=== PATIENT | male | born 1960 | race Caucasian/White ===

== ENCOUNTER 2023-09-16 10:29 | Outpatient (RCR) | payer MEDICARE, SELFPAY ==
[2023-09-16] MEDS: FLEXBUMIN 50 IV (11:24)
[2023-09-16 11:26] VITALS: BP 127/75
[2023-09-16] MEDS: FLEXBUMIN 100 IV (12:10)
[2023-09-16 12:13] VITALS: BP 119/72
[2023-09-16 12:45] VITALS: BP 117/54
== END 2023-10-12 23:59 | disposition home or self-care (01) ==
LOC: OID 10:29
PROVIDERS: ATTENDING PHYSICIAN Internal Medicine Hematology & Oncology
DX: K70.31 Alcoholic cirrhosis of liver with ascites (principal); R18.8 Other ascites
CPT/HCPCS: 49083; 87015; 87070; 87205; 89051; 96365; 96366; P9047

== ENCOUNTER 2023-10-11 18:56 | Inpatient (IN) | payer MEDICARE, SELFPAY ==
[2023-10-11] VITALS (9 sets, daily range): BP systolic 93–129; BP diastolic 50–79; BMI 26.5; BMI 25.7
[2023-10-11 15:08] LABS: % Basophils 0.2 % (0-2); % Eosinophils 0.1 % (0-6); % Immature Granulocytes 0.7 % (0-0.5); % Lymphocytes 1.4 % (20.5-51.1); % Monocytes 5.8 % (1.7-9.3); % Neutrophils 91.8 % (42.2-75.2); Absolute Immature Granulocytes 0.1 10^3/uL (0-0.05); Absolute Lymphocytes 0.3 10^3/uL (1.2-3.4); Absolute Monocytes 1.1 10^3/uL (0.1-0.6); Absolute Neutrophils 17.6 10^3/uL (1.4-6.5); Hematocrit 37.6 % (39.0-52.0); Hemoglobin 13.8 g/dL (13.0-18.0); Mean Corp Hgb Conc. 36.7 g/dL (33.0-37.0); Mean Corpuscular Hgb 32.7 pg (27.0-31.0); Mean Corpuscular Volume 89.1 fL (80.0-94.0); Mean Platelet Volume 9.8 fL (7.4-10.4); Nucleated Red Blood Cells % 0 % (-); Platelet Count 133 10^3/uL (130-400); Red Blood Cell Count 4.22 10^6/uL (4.70-6.10); Red Cell Dist. Width 15.6 % (11.5-14.5); White Blood Cell Count 19.2 10^3/uL (4.8-10.8)
[2023-10-11 15:21] LABS: Ammonia 27 umol/L (9-30)
[2023-10-11 15:26] LABS: ALT (SGPT) 53 U/L (0-50); AST (SGOT) 75 U/L (17-59); Albumin 2.9 g/dl (3.5-5.0); Alkaline Phosphatase 129 U/L (38-126); Blood Urea Nitrogen 19 mg/dl (9-20); Calcium 8.5 mg/dl (8.4-10.2); Carbon Dioxide 20 mmol/L (22-30); Chloride 93 mmol/L (98-107); Glucose 117 mg/dl (70-99); Potassium 5.2 mmol/L (3.5-5.1); Sodium 119 mmol/L (135-145); Total Bilirubin 7.1 mg/dl (0.2-1.3); Total Protein 7.5 g/dl (6.3-8.2); eGFR > 60.00
--- NOTE | 2023-10-11 17:31 | ED.GENMED ---
History of Present Illness
General
Chief Complaint: Weakness
Source: patient and spouse
Exam Limitations: none
Time Seen by Provider: 10/11/23 15:57
Nursing documentation reviewed up to this point in time: agreed with
Travel History
Have you had any contact with someone who has COVID-19?: No
Do you have any symptoms of coronavirus? Fever > 100 degrees, chills, cough, shortness of breath, sore throat, loss of taste or smell, muscle aches, or headache?: No
History of Present Illness
History of Present Illness:
63-year-old male with Alyssa history of liver cancer with previous radiation treatment no ongoing chemo at this time. Does have frequent ascites with drainage has cirrhosis. He is presenting to the emergency department today with concerns of
slight confusion and altered mental status since last night. Has had decreased over the past few days. Denies significant discomfort at this time no chest pain or shortness of breath no nausea vomiting or diarrhea.
Past History
Past History
ED Past Medical History: Cancer (Hepatocellular carcinoma) and Other (Gallstones)
ED Past Surgical History: None
Social History
Tobacco: Non-smoker
Alcohol: Occasional
Drug: None
Personal: Single (common law marrage)
Living: with family
Review of Systems
Review of Systems
Allergies reviewed?: Yes
All Other Systems: ROS reviewed and negative except as documented in HPI and ROS
Phy Exam
Physical Exam
Physical Exam:
GENERAL: Alert , in no apparent distress
EYE: pupils equal and reactive
NECK: Supple, no significant adenopathy.
ENT: o/p clr, mmm.
CARDIAC: Regular rate and rhythm .
LUNGS: Clear breath sounds bilaterally, no acute respiratory distress, no wheezes/rales/rhonchi
ABDOMEN: Soft, without focal tenderness, no r/g, no cvat
NEUROLOGICAL: Alert and oriented, no focal neuro deficits
SKIN: Warm and dry, skin intact.
MUSCULOSKELETAL: No edema, well perfused.
PSYCH: Normal and appropriate interaction.
Course
Orders/Labs/Results
Orders:
Orders
10/11/23 14:45
CT Head W/o Iv Contrast Urgent
Comment:
Reason For Exam: weakness and confusion
10/11/23 14:55
Ammonia Urgent
CMP [Comprehensive Metabolic Panel] Urgent
Complete Blood Count/With Diff Urgent
TSH Reflex To Free T4 Urgent
Comment: ADD ON
10/11/23 16:34
Urine Osmolality Random [Osmolality, Random Urine] Urgent
Urine Sodium Urgent
10/11/23 16:35
Add On- LAB Urgent
Tests Added?: tsh free t4
10/11/23 16:36
EKG [Electrocardiogram (*1)] Urgent
Reason for Study: QTc Monitoring
EKG- Treatment ONCE
Urinalysis Reflex To Culture Urgent
10/11/23 17:00
3% Sodium Chloride 250 ml [Sodium Chloride 3%] 50 ml IV ONCE
10/11/23 17:17
3% Sodium Chloride 500 ml [Sodium Chloride 3%] 100 ml Empty Viaflex Container 100 ml [Viaflex Empty Container] 0 ml IV NOW
Abnormal Lab Results
10/11/23
14:55
WBC 19.2 H 10^3/uL
(4.8-10.8)
RBC 4.22 L 10^6/uL
(4.70-6.10)
Hct 37.6 L %
(39.0-52.0)
MCH 32.7 H pg
(27.0-31.0)
RDW 15.6 H %
(11.5-14.5)
Abs Immat Gran (auto) 0.1 H 10^3/uL
(0-0.05)
Absolute Neuts (auto) 17.6 H 10^3/uL
(1.4-6.5)
Absolute Lymphs (auto) 0.3 L 10^3/uL
(1.2-3.4)
Absolute Monos (auto) 1.1 H 10^3/uL
(0.1-0.6)
Immature Gran % 0.7 H %
(0-0.5)
Neutrophils % 91.8 H %
(42.2-75.2)
Lymphocytes % 1.4 L %
(20.5-51.1)
Sodium 119 L* mmol/L
(135-145)
Potassium 5.2 H mmol/L
(3.5-5.1)
Chloride 93 L mmol/L
(98-107)
Carbon Dioxide 20 L mmol/L
(22-30)
Glucose 117 H mg/dl
(70-99)
Total Bilirubin 7.1 H mg/dl
(0.2-1.3)
AST 75 H U/L
(17-59)
ALT 53 H U/L
(0-50)
Alkaline Phosphatase 129 H U/L
(38-126)
Albumin 2.9 L g/dl
(3.5-5.0)
10/11/23 14:55
10/11/23 14:55
Vital Signs
Initial and Last Documented VS:
Initial Vital Signs
Temp Pulse Resp BP Pulse Ox
97.9 F 117 20 129/79 99
10/11/23 14:39 10/11/23 14:39 10/11/23 14:39 10/11/23 14:39 10/11/23 14:39
Last Documented Vital Signs
Temp Pulse Resp BP Pulse Ox
97.9 F 116 23 114/62 98
10/11/23 14:39 10/11/23 17:00 10/11/23 17:00 10/11/23 17:00 10/11/23 16:19
MDM/Problems Addressed
MDM/Problems Addressed:
63-year-old male presenting to the emergency department today with concerns of feeling fatigue and generalized weakness since last night. Has not been eating or drinking much over the past few days does have a history of liver cancer. Upon arrival
here patient was tachycardic this did improve while at rest during my examination was close to 100 even. Labs obtained that showed significant hyponatremia of 119. White blood cell count of 19.2 otherwise elevated liver function test but this is
chronically elevated as well as the bilirubin level secondary to his cancer diagnosis. Patient was given initial dose of hypertonic saline due to his altered mental status but no signs of seizure. Plan for admission for treatment and monitoring.
*Critical Care Note
Total Time (30-74mins, 75-104mins- exclusive of procedures): Not Applicable
ED Attending Note
-
Portions of this chart may have been created with voice recognition software.� Occasional wrong word or��sound alike� substitutions may have occurred due to the inherent limitations of voice recognition software.
Discharge Plan
Departure
Patient Disposition: Admit
Date of Disposition: 10/11/23
Time of Disposition: 17:40
Admit to: Med/Surg
Admit to doctor: Wu
Presentation/result/management discussed w/ accepting MD/DO: Hospitalist
Patient with high blood pressure during this ER visit?: No
Condition: Good
Covid-19: Not Applicable
Discharge Problem:
Acute hyponatremia, AMS (altered mental status)
Prescriptions:
No Action
furosemide 20 MG tablet
20 mg PO DAILY
spironolactone 50 mg tablet
50 mg PO DAILY
sennosides [Senokot] 8.6 mg Tablet
17.2 mg PO DAILY
ondansetron 4 mg Tablet,Disintegrating
4 mg PO Q6H PRN (Reason: nausea)
oxycodone 5 mg Tablet
5 mg PO Q4H PRN (Reason: pain)
docusate sodium 100 mg Capsule
100 mg PO DAILY
Referrals:
Ahmet Mckenna, DO [Family Provider] -
Interventions
Interventions:
*Risk Screen - Suicide Last Done: 10/11/23 16:19
*General Assessment Last Done: 10/11/23 16:19
*Neglect/Abuse Screening Last Done: 10/11/23 16:19
ED- Fall Risk Assessment Last Done: 10/11/23 16:19
*ED COVID-19 Vaccine History Last Done: 10/11/23 14:39
ED- Cardiac Assessment Last Done: 10/11/23 16:19
ED- Neurological Assessment Last Done: 10/11/23 16:19
ED- Pulmonary Assessment Last Done: 10/11/23 16:19
--- NOTE | 2023-10-11 18:05 | HPS.HSE ---
Family Physician
<JORGE Grant - Last Filed: 10/11/23 18:30>
-
Family Physician: Ahmet Mckenna
Chief Complaint
<JORGE Grant - Last Filed: 10/11/23 18:30>
-
Confusion since last night
History of Present Illness
63-year-old male complaining of slight confusion with altered mental status over the last few days. He is also been experiencing some abdominal pain and was due for MRI tomorrow. He has history of hepatocellular carcinoma with previous radiation
treatment no current chemo at this time. He has had history of frequent paracentesis last on 10/07 2023 draining 4.4 L prior 5 L on 09/22/23. He gets weekly paracentesis. He follows with Dr. Mckenna from [facility]. The patient reports he
stopped his diuretics a few weeks ago due to abdominal pain. He has past medical history of hepatocellular carcinoma with previous radiation Y90 at [facility], weekly paracentesis, prior phlebotomy last was June due to hemochromatosis diagnosed 9
years ago, former alcohol abuse stopped 9 years ago, chronic pain
Medical History
<JORGE Grant - Last Filed: 10/11/23 18:30>
Past Medical History
Past Medical History: Reports Other (hepatocellular carcinoma with previous radiation Y90 at [facility], weekly paracentesis, prior phlebotomy last June due to hemochromatosis diagnosed 9 years ago, former alcohol abuse stopped 9 years ago,
chronic pain)
Past Surgical History: Reports Other (Ablation liver cyst 5 years ago)
Social History
Tobacco: Non-smoker
Alcohol: Former (Drink 4 days a week multiple beer stopped 9 years ago)
Personal:
Living: With Family ()
Employment: Disabled
Family History
Family History: Other (Mother history hemochromatosis)
Allergies / Home Medications
Allergies reflects when Allergies were last updated in [facility].
Home Medications with original date entered in [facility]
Allergy/Medication List:
Allergies
Allergy/AdvReac Type Severity Reaction Status Date / Time
No Known Allergies Allergy Verified 10/11/23 14:45
Home Medications
furosemide 20 mg tablet 20 mg PO DAILY Fluid Retention/Swelling 11/05/16
spironolactone 50 mg tablet 50 mg PO DAILY Blood Pressure 09/23/23
ondansetron 4 mg disintegrating tablet 4 mg PO Q6H PRN nausea 09/29/23
oxycodone 5 mg tablet 5 mg PO Q4H PRN pain 09/29/23
sennosides 8.6 mg tablet (Senokot) 17.2 mg PO DAILY 09/29/23
docusate sodium 100 mg capsule 100 mg PO DAILY 09/30/23
Review of Systems
<JORGE Grant - Last Filed: 10/11/23 18:30>
-
History Source: Patient and Family ( at bedside)
Constitutional: Reports Fatigue and Other (Confusion, lethargy); Denies Fever or Chills
EENT: Denies Sore Throat or Runny Nose
Respiratory: Denies Cough or Trouble Breathing
Cardiac: Denies Chest Pain, Palpitations or Syncope
Abdomen/GI: Reports Abdominal Pain; Denies Nausea, Vomiting or Diarrhea
: Denies Dysuria, Frequency, Flank Pain, Incontinence or Difficulty Voiding
Musculoskeletal: Denies Joint Pain, Joint Swelling or Edema
Skin: Denies Itching or Rash
Neurological: Denies Dizzy or Headache
Endocrine: Reports No Symptoms
Hematologic/Lymphatic: Reports No Symptoms
Psych: Reports Calm
Physical Exam
<JORGE Grant - Last Filed: 10/11/23 18:30>
Vital Signs
Vital Signs
Temp Pulse Resp BP Pulse Ox
97.9 F 116 23 114/62 98
10/11/23 14:39 10/11/23 17:00 10/11/23 17:00 10/11/23 17:00 10/11/23 16:19
Physical Exam
General: No Pain or Fever
HEENT: NormoCephalic, Anicteric, Moist mucous membranes, [place] Conjunctivae and No Ptosis
Respiratory: Clear; No Wheezes, Rales or Rhonchi
Cardiac: S1/S2, Regular Rhythm and Murmur (3/6 systolic); No Rub, Gallop or Peripheral Edema
Breast: Deferred by me
GI: Soft, Normal Bowel Sounds, Tender (Generalized), Distended and No Hepatosplenomegaly
Rectal: Deferred by Provider
Genito-urinary: Deferred by me
Musculoskeletal: No Clubbing, No Cyanosis and No Edema
Skin: Warm and Dry; No Rash
Neuro: AO x 3, No Motor Deficits, Nonfocal/grossly intact, Cranial Nerves Intact and No Sensory Deficits; No Slurred Speech, Facial Droop or Tremors
Psych: Calm
Laboratory Results
<JORGE Grant - Last Filed: 10/11/23 18:30>
-
10/11/23 14:55
10/11/23 14:55
Laboratory Results
Total Bilirubin 7.1 mg/dl (0.2-1.3) H 10/11/23 14:55
AST 75 U/L (17-59) H 10/11/23 14:55
ALT 53 U/L (0-50) H 10/11/23 14:55
Alkaline Phosphatase 129 U/L (38-126) H 10/11/23 14:55
Impression/Plan
<JORGE Grant - Last Filed: 10/11/23 18:30>
-
Impression/plan:
Admit to IMU
Increased confusion likely secondary to symptomatic hyponatremia
NA 119
-3% NA infusion
-Consult Nephro
-Urine NA, urine Osmo, serum Osmo, TSH with free T4
-Resume patient's Lasix he stopped 3 weeks ago and spironolactone
CT head: No acute intracranial abnormality
EKG: Sinus tach 111 BPM, QTc 427 MS anteroseptal infarct no previous EKGs
# Acute leukocytosis unclear etiology possible SBO given history of ascites
WBC 19.2 > 18.3 on 09/24/2023 with left shift
-Blood cultures x 2
-IV Rocephin
-Check abdominal ultrasound for abdominal ascites
-Check MRI abdomen
#Liver CA with history of recurrent Ascites
#chronic transaminitis/chronic hyperbilirubinemia
#History of paracentesis 4.5 L on 10/07/2023 (Hx multiple paracentesis)
Due for weekly paracentesis on Fridays
T. bili 7.1
-Follows with Dr. Mckenna
#History of cirrhosis 2/2 hemochromatosis Dx 9 years ago
Y9 radiation at [facility]
-Patient refused liver transplant that was offered in past
-Last phlebotomy has been in June 2023
-Continue oxycodone as needed pain
#Portal HTN
#Former alcohol abuse
Drank 4 days a week beers stopped 9 years ago
#Known cardiac murmur
#GERD
-No PPI listed
# splenic varices hx
DVT prophylaxis
SCDs
Full code
<Lars Stovall MD - Last Filed: 10/11/23 18:50>
-
Examination patient appears to be tired awake and alert able to answer questions
Cardiovascular system S1-S2 appreciated, systolic murmur at aortic area
Chest-decreased breath sounds at bases
Abdomen is distended liver palpable
Ascites
Bilateral lower extremity edema noted
Neuro exam-slightly confused but nonfocal
Assessment and plan
# Symptomatic hyponatremia
Increased confusion
Admit to stepdown
3% saline has been started
Check serum and urine osmolalities and urine sodium
TSH and cortisol level
Patient stopped taking Lasix 3 weeks ago and Aldactone.
Also admitted to drinking fluids as he could not eat much
Fluid restriction
Restart Lasix
Repeat sodium later tonight and also tomorrow morning
Nephrology evaluation
# Leukocytosis
Check chest x-ray
Blood cultures
IV ceftriaxone empirically
Ultrasound of the abdomen to rule out ascites and diagnostic paracentesis
Urinalysis and culture
# Hereditary hemochromatosis with hepatocellular cancer with history of Y90 radioembolization at [place] Apr 2023
Patient did not want to get liver transplant done and was stable up until last year
Follows with Dr. Mckenna
MRI of the liver was scheduled as outpatient because he has increasing pain and ascites
Get it done tomorrow here
Last phlebotomy has been in June 2023
# Recurrent ascites
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
Bleeding esophageal varices history with history of banding
He was seeing Hepatology, Dr. Alcocer, but states that he has recently switched care to Dr. Clark at [facility].
Gets paracentesis on Fridays
Last paracentesis was on 10/07/2023. 4.5 L removed
He has not needed albumin
# History of heavy alcohol use alcohol use 4 days a week in the past completely stopped 9 years ago
# Cholelithiasis
# History of moderate aortic stenosis
# DVT prophylaxis-SCDs
# Patient wants to be full code
Discussed with at bedside
Impression/plan:
Admit to IMU
Increased confusion likely secondary to symptomatic hyponatremia
NA 119
-3% NA infusion
-Consult Nephro
-Urine NA, urine Osmo, serum Osmo, TSH with free T4
-Resume patient's Lasix he stopped 3 weeks ago and spironolactone
CT head: No acute intracranial abnormality
EKG: Sinus tach 111 BPM, QTc 427 MS anteroseptal infarct no previous EKGs
# Acute leukocytosis unclear etiology possible SBO given history of ascites
WBC 19.2 > 18.3 on 09/24/2023 with left shift
-Blood cultures x 2
-IV Rocephin
-Check abdominal ultrasound for abdominal ascites
-Check MRI abdomen
#Liver CA with history of recurrent Ascites
#chronic transaminitis/chronic hyperbilirubinemia
#History of paracentesis 4.5 L on 10/07/2023 (Hx multiple paracentesis)
Due for weekly paracentesis on Fridays
T. bili 7.1
-Follows with Dr. Mckenna
#History of cirrhosis 2/2 hemochromatosis Dx 9 years ago
Y9 radiation at [facility]
-Patient refused liver transplant that was offered in past
-Last phlebotomy has been in June 2023
-Continue oxycodone as needed pain
#Portal HTN
#Former alcohol abuse
Drank 4 days a week beers stopped 9 years ago
#Known cardiac murmur
#GERD
-No PPI listed
# splenic varices hx
DVT prophylaxis
SCDs
Full code
[2023-10-11 18:14] LABS: Urine Albumin Trace (Neg - Trace); Urine Bilirubin 2+ (Negative); Urine Character Clear (Clear); Urine Color Brown; Urine Glucose Negative (Negative); Urine Ketone 1+ (Negative); Urine Leukocyte Trace (Negative); Urine Nitrite Negative (Negative); Urine Occult Blood Negative (Negative); Urine Urobilinogen 3+ (Neg - 1+)
[2023-10-11 18:51] LABS: Osmolality Urine 865 mOsm/kg (300-900)
[2023-10-11 18:52] LABS: Urine Squamous Cell 0-2 /LPF (Few)
[2023-10-11 18:54] LABS: Urine Bacteria Few (Negative); Urine Red Blood Cell 0-2 /HPF (0-2); Urine White Cell 0-2 /HPF (0-5)
[2023-10-11 19:08] LABS: Urine Sodium < 5 mmol/L (30-90)
[2023-10-11 19:27] LABS: Uric Acid 3.1 mg/dl (3.5-8.5)
[2023-10-11 19:34] LABS: Ammonia 47 umol/L (9-30)
[2023-10-11 19:42] LABS: Osmolality Serum 865 mOsm/kg (275-300)
[2023-10-11] MEDS: SODIUM CHLORIDE 3% 250 IV (20:04)
[2023-10-11 20:46] LABS: Cortisol, Random 50.3 ug/dl; TSH Reflex To Free T4 2.25 uIU/ml (0.47-4.68)
[2023-10-11 20:50] LABS: Blood Urea Nitrogen 20 mg/dl (9-20); Calcium 8.3 mg/dl (8.4-10.2); Carbon Dioxide 20 mmol/L (22-30); Chloride 95 mmol/L (98-107); Estimated Creatinine Clearance 98 ml/min; Glucose 99 mg/dl (70-99); Potassium 5.2 mmol/L (3.5-5.1); Sodium 118 mmol/L (135-145); eGFR > 60.00
[2023-10-11] MEDS: STERILE WATER FOR INJECTION 20 ML IV (20:57)
[2023-10-11] MEDS: ROCEPHIN 2000 MG IV (20:57)
[2023-10-12] VITALS (27 sets, daily range): BP systolic 88–116; BP diastolic 36–90; BMI 25.9
--- NOTE | 2023-10-12 00:41 | PTCARENOTE ---
Received pt as new admission. Presents confused, but agreeable. Unable to state name, , or year, but does accurately identify place. Very poor historian d/t confusion, was able to answer admission questions, but lacks insight. Na upon admission
to this unit was 118. 3% sodium chloride hung per MD order. 00:00 Na was 119, Dr. Espinoza notified via TT. Pt ST on nuclear monitoring technician with rate 100-115. Pt was able to stand at bedside to void in the urinal. Bed alarm set for patient safety. Call donovan
placed within reach.
[2023-10-12 00:44] LABS: Blood Urea Nitrogen 19 mg/dl (9-20); Calcium 8.2 mg/dl (8.4-10.2); Carbon Dioxide 17 mmol/L (22-30); Chloride 96 mmol/L (98-107); Estimated Creatinine Clearance 98 ml/min; Glucose 91 mg/dl (70-99); Potassium 5.1 mmol/L (3.5-5.1); Sodium 119 mmol/L (135-145); eGFR > 60.00
[2023-10-12 05:53] LABS: Blood Urea Nitrogen 21 mg/dl (9-20); Calcium 8.3 mg/dl (8.4-10.2); Carbon Dioxide 15 mmol/L (22-30); Chloride 96 mmol/L (98-107); Estimated Creatinine Clearance 112 ml/min; Glucose 97 mg/dl (70-99); Magnesium 2.3 mg/dl (1.6-2.3); Sodium 121 mmol/L (135-145); eGFR > 60.00
[2023-10-12 05:55] LABS: INR 2.18; PT 24.6 Sec (11.4-14.6)
--- NOTE | 2023-10-12 06:04 | PTCARENOTE ---
MS slightly improved. Pt is now able to recall name and as well as place, still unable to state current year. When asked how he feels, pt states 'not much better.'
[2023-10-12 06:24] LABS: Hemoglobin 13.2 g/dL (13.0-18.0); Mean Corp Hgb Conc. 36.7 g/dL (33.0-37.0); Mean Corpuscular Hgb 32.6 pg (27.0-31.0); Mean Corpuscular Volume 88.9 fL (80.0-94.0); Red Blood Cell Count 4.05 10^6/uL (4.70-6.10); Red Cell Dist. Width 15.6 % (11.5-14.5); White Blood Cell Count 19.3 10^3/uL (4.8-10.8)
--- NOTE | 2023-10-12 06:46 | CON.ONC ---
Impression
Impression
Symptomatic hyponatremia
Leukocytosis
HCC
Advanced cirrhosis 2* to ETOH & hemochromatosis Dx 9 years ago
Hereditary hemochromatosis (baseline ferritin > 1300)
Plan
Plan
Tx of Na per medicine and nephrology. Currently on hypertonic saline.
Await MRI. Had some evidence of POD last MRI in 07/15/2023 in the medial left hepatic lobe.
Currently on observation alone s/p Y90 [facility] 04/2023.
AFP = 10.8 on 09/29/2023. Previous AFP = 10.6 on 08/31/2023. Just mildly elevated and non specific.
Check iron studies incl. ferritin.
Leukocytosis likely reactive as baseline CBC 09/29/23 normal (9.2/13.8/37.9/171).
We will follow.
Patient History
History of Present Illness
CC: Weakness and confusion
HPI:
63-year-old male with hereditary hemochromatosis, advanced cirrhosis and hepatocellular carcinoma (HCC) s/p Y90 chemoembolization at [facility] in 04/2023, currently on observation presents with c/o generalizaed weakness and slight confusion over the last
few days. On arrival serum Na = 118. He has recurrent ascites and was actually due for a restaging abdominal MRI that is scheduled to be done today. He gets weekly paracentesis.
Past-Medical/Surgical History
PMH:
Hepatocellular carcinoma (HCC) with some POD 07/2023 s/p Y90 at [facility] 04/2023
Recurrent ascites gets weekly paracentesis.
Hereditary hemochromatosis Dx 2014 (baseline ferritin 1300) gets phlebotomy PRN ferritin > 50
ETOH Cirrhosis (advanced ESLD) Dx 2014
Social History
Tobacco: Non-smoker
Alcohol: Former (Drink 4 days a week multiple beer stopped 9 years ago)
Personal:
Living: With Family ()
Employment: Disabled
Patient Medication
Medication Instructions Recorded Confirmed Last Taken Type
furosemide 20 mg tablet 20 mg PO DAILY Fluid 11/05/16 10/11/23 10/10/23 History
Retention/Swelling
spironolactone 50 mg tablet 50 mg PO DAILY Blood Pressure 09/23/23 10/11/23 10/10/23 History
ondansetron 4 mg disintegrating 4 mg PO Q6H PRN nausea 09/29/23 10/11/23 10/10/23 History
tablet
oxycodone 5 mg tablet 5 mg PO Q4H PRN pain 09/29/23 10/11/23 10/10/23 History
sennosides 8.6 mg tablet (Senokot) 17.2 mg PO DAILY 09/29/23 10/11/23 10/10/23 History
docusate sodium 100 mg capsule 100 mg PO DAILY 09/30/23 10/11/23 10/10/23 History
Active Medications
Generic Name Dose Route Start Last Admin
Trade Name Freq PRN Reason Stop Dose Admin
Ceftriaxone Sodium 2,000 mg 10/11/23 20:00 10/11/23 20:57
Ceftriaxone 2,000 Mg/20 Ml Vial IV 2,000 mg
Q24H CHANNING Administration
Docusate Sodium 100 mg 10/12/23 08:00
Docusate Sodium 100 Mg Capsule PO 11/09/23 07:59
DAILY CHANNING
Furosemide 20 mg 10/12/23 08:00
Furosemide 20 Mg Tablet PO 11/09/23 07:59
DAILY CHANNING
Ondansetron HCl 4 mg 10/11/23 20:04
Ondansetron 4 Mg (Orally-Disintegrating) Tablet PO 11/08/23 20:03
Q6HPRN PRN
nausea
Oxycodone HCl 5 mg 10/11/23 20:04
Oxycodone 5 Mg Regular Release Tablet PO 10/25/23 20:03
Q4HPRN PRN
pain
Sennosides 17.2 mg 10/12/23 08:00
Sennosides (Senokot) 8.6 Mg Tablet PO 11/09/23 07:59
DAILY CHANNING
Sodium Chloride 0 flush 10/11/23 21:00
Sodium Chloride 0.9% (Flush) Syringe IV 11/08/23 20:59
PER PROTOCOL CHANNING
Spironolactone 50 mg 10/12/23 08:00
Spironolactone 50 Mg Tablet PO 11/09/23 07:59
DAILY CHANNING
Sterile Water 20 ml 10/11/23 20:00 10/11/23 20:57
Sterile Water For Injection 20 Ml Vial IV 11/08/23 19:59 20 ml
Q24H CHANNING Administration
Review of Systems
-
Constitutional: Reports Fatigue and Weakness
EENT: Reports No Symptoms
Respiratory: Reports No Symptoms
Cardiac: Reports No Symptoms
GI: Reports Abdominal Pain
Physical Exam
-
General: No Apparent Distress and Comfortable
HEENT: Jaundice
Cardiology: S1 and S2
Pulmonary: Clear
GI: Soft, Distended and Fluid Wave
Musculoskeletal: No Edema
Extremities: No C/C/E
Neurology: Non Focal
Psych: Calm
Labs
Lab Results
WBC 19.3 10^3/uL (4.8-10.8) H 10/12/23 06:12
RBC 4.05 10^6/uL (4.70-6.10) L 10/12/23 06:12
Hgb 13.2 g/dL (13.0-18.0) 10/12/23 06:12
Hct 36.0 % (39.0-52.0) L 10/12/23 06:12
MCV 88.9 fL (80.0-94.0) 10/12/23 06:12
MCH 32.6 pg (27.0-31.0) H 10/12/23 06:12
MCHC 36.7 g/dL (33.0-37.0) 10/12/23 06:12
RDW 15.6 % (11.5-14.5) H 10/12/23 06:12
Plt Count Cancelled 10/12/23 05:32
MPV Cancelled 10/12/23 05:32
Abs Immat Gran (auto) 0.1 10^3/uL (0-0.05) H 10/11/23 14:55
Absolute Neuts (auto) 17.6 10^3/uL (1.4-6.5) H 10/11/23 14:55
Absolute Lymphs (auto) 0.3 10^3/uL (1.2-3.4) L 10/11/23 14:55
Absolute Monos (auto) 1.1 10^3/uL (0.1-0.6) H 10/11/23 14:55
Absolute Eos (auto) 0.0 10^3/uL (0-0.7) 10/11/23 14:55
Absolute Basos (auto) 0.0 10^3/uL (0-0.2) 10/11/23 14:55
Immature Gran % 0.7 % (0-0.5) H 10/11/23 14:55
Neutrophils % 91.8 % (42.2-75.2) H 10/11/23 14:55
Lymphocytes % 1.4 % (20.5-51.1) L 10/11/23 14:55
Monocytes % 5.8 % (1.7-9.3) 10/11/23 14:55
Eosinophils % 0.1 % (0-6) 10/11/23 14:55
Basophils % 0.2 % (0-2) 10/11/23 14:55
Creatinine 0.7 mg/dL (0.7-1.3) 10/12/23 05:32
Vital Signs
Vital Signs
Temp Pulse Resp BP Pulse Ox
97.5 F 106 16 99/52 97
10/12/23 03:38 10/12/23 06:01 10/12/23 06:01 10/12/23 06:01 10/12/23 06:01
[2023-10-12 07:39] LABS: Mean Platelet Volume 10.2 fL (7.4-10.4); Platelet Count 100 10^3/uL (130-400)
--- NOTE | 2023-10-12 08:21 | PTCARENOTE ---
Pt trasnported to MRI at this time. Notifed MD of + blood cultures.
--- NOTE | 2023-10-12 09:21 | CON.ID ---
Consultation
-
Date/Time Consultation Requested: 10/12/23 8:57
Date/Time Consultation Performed: 10/12/23 9:23
Requesting Provider: Dr Stovall
Performing Provider: Dr Simeon
Reason for Consultation: bacteremia
Chief Complaint / Past History
Chief Complaint
confusion
History of Present Illness
Mr Saunders is a 63 year old male with history of cirrhosis (etoh/hemochromatosis) decompensated with weekly paracenteses, HCC s/p radiation - no chemotherapy, who presented here yesterday for a several day history of confusion. Mild abdominal
tenderness that waxes and wanes. Nonspecific. Last paracetesis was 10/07 for 4.5 L clear fluid- typically goes weekly. Not on SBP prophylaxis. No chest pain, shortness of breath, nausea, vomiting or diarrhea. No hardwear.
Since arrival here no recorded fevers, BP overall stable, intermittent mild tachycardia, WBC 19 and remains 19 today, hgb 13, plt 133 now 100, L shfit noted, eos still present, cr 0.7, na 119 on presentation now 121, Abd US: large V ascites, abd
MRI done but not yet read by radiology, CXR: no acute process. Currently on ceftriaxone. Blood cultures x3 positive GPCs in chains - aerobic and anaerobic, one repeat blood culture done today. ID is consulted for assistance with management.
Past History
Additional Past Medical History:
hepatocellular carcinoma with previous radiation Y90 at [facility], weekly paracentesis, prior phlebotomy last June due to hemochromatosis diagnosed 9 years ago, former alcohol abuse stopped 9 years ago, chronic pain
Additional Past Surgical History:
liver cyst ablation
Allergy History:
No Known Allergies Allergy (Verified 10/11/23 14:45)
Medications Reviewed: Yes
Social History
Tobacco: Non-Smoker
Alcohol: Former (abstinent 9 years)
Living: With Family
Family History
Family History: Not Pertinent
Review of Systems
Review of Systems
General: Negative Fever or Chills
All systems: All other systems were reviewed and were negative
Vital Signs
Temp Pulse Resp BP Pulse Ox
97.5 F 106 16 99/52 97
10/12/23 03:38 10/12/23 06:01 10/12/23 06:01 10/12/23 06:01 10/12/23 06:01
Physical Exam
Physical Exam
Constitutional: No Acute Distress and Chronically Ill
Cardiovascular: Regular Rate and S1/S2; Negative Murmur or Rub
Pulmonary: Clear and Symmetric; Negative Wheezes, Rales or Rhonchi
Gastrointestinal: Soft, Non Tender, Distended, Normal Bowel Sounds, No Rebound, No Guarding and Other (no peritoneal signs)
Skin: Warm, Dry and Other (scattered bruising); Negative Rash or Jaundice
Neurological: Awake and Alert
Psychological: Calm
Lab / Diagnostic Study Results
10/12/23 06:12
10/12/23 05:32
Abs Immat Gran (auto) 0.1 10^3/uL (0-0.05) H 10/11/23 14:55
Absolute Neuts (auto) 17.6 10^3/uL (1.4-6.5) H 10/11/23 14:55
Absolute Lymphs (auto) 0.3 10^3/uL (1.2-3.4) L 10/11/23 14:55
Absolute Monos (auto) 1.1 10^3/uL (0.1-0.6) H 10/11/23 14:55
Absolute Basos (auto) 0.0 10^3/uL (0-0.2) 10/11/23 14:55
Immature Gran % 0.7 % (0-0.5) H 10/11/23 14:55
Neutrophils % 91.8 % (42.2-75.2) H 10/11/23 14:55
Lymphocytes % 1.4 % (20.5-51.1) L 10/11/23 14:55
Monocytes % 5.8 % (1.7-9.3) 10/11/23 14:55
Eosinophils % 0.1 % (0-6) 10/11/23 14:55
Basophils % 0.2 % (0-2) 10/11/23 14:55
PT 24.6 Sec (11.4-14.6) H 10/12/23 05:32
INR 2.18 10/12/23 05:32
Ur Squamous Epith Cells 0-2 /LPF (Few) 10/11/23 17:48
Microbiology Results
Micro:
10/11/23 20:25 Blood Culture - Preliminary
Blood/Venous Positive culture in progress
Gram Stain - Preliminary
10/11/23 19:10 Blood Culture - Preliminary
Blood/Venous Positive culture in progress
Gram Stain - Final
10/11/23 19:09 Blood Culture - Preliminary
Blood/Venous Positive culture in progress
Gram Stain - Final
Assessment / Plan
Gram positive bacteremia
Leukocytosis
Decompensated Cirrhosis (EtOH and hemochromatosis)
Cholethiasis
- repeat blood cultures daily until persistently clear in two full sets
- await ID of the isolate - strep vs enterococcus
- TTE
- panellipse
- follow up MRI abd report
- agree with paracentesis to check for SBP - cell count, culture into blood culture bottle (increases yield)
- agree with ceftriaxone pending ID
- add vancomycin pending ID
- follow clinically
Hyponatremia
- managment per IM service, likely contributing to delirium
[2023-10-12] MEDS: SENOKOT 17.1999999999999993 MG PO (09:32)
[2023-10-12] MEDS: DUPHALAC/CHRONULAC 20 GRAMS PO ×2 (09:32→21:13)
--- NOTE | 2023-10-12 09:32 | W.PN.HOSP.TC ---
Today's Communication/Plan
-
Repeat blood cultures
Repeat serum osmolality and ammonia level
Fluid restriction
Hold diuretics with suspicion of SBP
Paracentesis-IR consulted
ID and GI consultation
Start lactulose
Continue ceftriaxone
Assessment / Plan
Assessment / Plan
Patient states that he feels less foggy but still not completely back to himself.
Just got back from MRI
Cardiovascular system S1-S2 appreciated, sm at aa
Chest decreased breath sounds at bases but clear
Abdomen distended not much tenderness noted bowel sounds present
Liver palpable
No pedal edema
Mild asterixis
#TME-Increased confusion likely secondary to symptomatic hyponatremia
Also possible that he has hepatic encephalopathy-mild
NA 121 today
-3% NA infusion
-Fluid restriction
-Osmolality studies consistent with SIADH
-Repeat serum osmolality likely drawn from 3% saline IV site. Not accurate repeat ordered
-Resume patient's Lasix he stopped 3 weeks ago and spironolactone-suspected hepatic encephalopathy therefore hold off on diuretics now
-CT of the head without any acute changes
# Acute leukocytosis unclear etiology possible SBO given history of ascites
-Leukocytosis
-Blood cultures x 3 sets positive for gram-positive cocci in chains
-IV Rocephin started last night to be continued
-IR consulted for paracentesis
-Repeat blood cultures ordered
-Infectious disease and GI consultation requested
# Hereditary hemochromatosis with hepatocellular cancer with history of Y90 radioembolization at [facility] Apr 2023
Patient did not want to get liver transplant done and was stable up until last year
Follows with Dr. Mckenna
MRI of the liver was scheduled as outpatient because he has increasing pain and ascites- done today results pending.
Last phlebotomy has been in June 2023
# Recurrent ascites
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
Bleeding esophageal varices history with history of banding
He was seeing Hepatology, Dr. Alcocer, but states that he has recently switched care to Dr. Clark at [facility].
Gets paracentesis on Fridays
Last paracentesis was on 10/07/2023.� 4.5 L removed
He has not needed albumin
# History of heavy alcohol use alcohol use 4 days a week in the past completely stopped 9 years ago
# Cholelithiasis
# History of moderate aortic stenosis
# DVT prophylaxis-SCDs
# Patient wants to be full code
D/W GI
D/W RN
D/W IRAD
spoke to and updated.
time spent 57 min
Anticipated Discharge: > 48 hours
Subjective/Interval History
-
Date of Service: October 12, 2023
Objective Data
-
Labs:
Laboratory Results
10/12/23 10/12/23 10/12/23
00:16 05:32 06:12
WBC Cancelled 19.3 H
Hgb Cancelled 13.2
Hct Cancelled 36.0 L
Plt Count Cancelled 100 L D
PT 24.6 H
INR 2.18
Sodium 119 L* 121 L
Potassium 5.1 5.0
Chloride 96 L 96 L
Carbon Dioxide 17 L 15 L
BUN 19 21 H
Creatinine 0.8 0.7
Glucose 91 97
Calcium 8.2 L 8.3 L
Vital Signs:
Vital Signs
Temp Pulse Resp BP Pulse Ox
97.5 F 106 16 99/52 97
10/12/23 03:38 10/12/23 06:01 10/12/23 06:01 10/12/23 06:01 10/12/23 06:01
I&O
10/11/23 10/12/23 10/13/23
06:59 06:59 06:59
Intake Total 250 / 250
Output Total 150 / 150
Balance 100 / 100
[2023-10-12] MEDS: COLACE 100 MG PO (09:33)
[2023-10-12] MEDS: LASIX PO (09:33)
--- NOTE | 2023-10-12 10:19 | CON.GI ---
Addendum entered and electronically signed by Kylah Mcconnell MD 10/12/23 19:16:
I saw and examined the patient.
The METAL MODEL BUILDER or PA's note was reviewed and I agree with the note.
Comment: 63-year-old male with history of hereditary hemochromatosis, cirrhosis, HCC status post ablation and during the embolization, history of esophageal varices in 2022 status post banding presenting with change in mental status and some
abdominal discomfort with ascites. On admission, leukocytosis noted with hyponatremia and blood cultures showing gram-positive cocci. Currently denies any abdominal pain, nausea or vomiting. No heartburn or trouble swallowing. No constipation,
diarrhea, blood in the stool or black stool. No NSAID use. He did have paracentesis today, no evidence of SBP noted.
Takes diuretics as needed but not on a regular basis as outpatient. Gets paracentesis weekly. Has not followed up with hepatology recently, used to see Dr. Alcocer at [place] but now sees at [facility], cannot remember his last visit.
MELD score of 27.
MRI from today showing evidence of cirrhosis and evidence of prior radioembolization, 2 lesions of the left hepatic lobe slightly increased in size. Large amount of ascites noted. No evidence of thrombus, small paraesophageal varices.
-Presenting with episodes of confusion, could be related to hepatic encephalopathy possibly triggered by infection
Currently alert oriented x 3
No evidence of SBP on paracentesis
Agree with lactulose, monitor bowel movements and electrolytes
-MRI showing slight increase in left lobe lesions
Suggested that he should be following up closely with his hepatology team at [facility]. Not sure what his last alpha-fetoprotein level is.
-Gram-positive cocci bacteremia
Currently on ceftriaxone and vancomycin
ID on board
-Hyponatremia
Nephrology on board, on 3% saline with Lasix
Addendum entered and electronically signed by JORGE Rutledge 10/12/23 15:38:
para for 5700ml will give 37.5 gram albumin now. Await cell count for SBP evaluation
Original Note:
Consultation
-
Date/Time Consultation Requested: 10/12/23 0900
Date/Time Consultation Performed: 10/12/23 1015
Requesting Provider: Lars Montes De Oca MD
Performing Provider: JORGE Anguiano, Kylah Mcconnell MD
Reason for Consultation: cirrhosis, hyponatermia
Medical History
Chief Complaint / HPI
Chief Complaint: abdominal pain
History of Present Illness:
This is a 63 year old male with a past medical history of hereditary hemochromatosis, cirrhosis, hepatocellular carcinoma (diagnosed 8 years ago, s/p tumor ablation tx 2018 and Y90 radioembolization at [place] in April 2023), esophageal varices
(s/p banding). Pt was following with Dr. Mckenna for oncology care. He was following with Dr. Alcocer but switched to Dr. Clark at [facility] as concerned with continued abdominal pain since treatment. he was admitted 2 weeks ago with abdominal
pain with stable imaging and neg SBP on para. At that time CT abd/pelvis showed no acute findings. Abdominal US showing moderate ascites, cholelithiasis and left hepatic lobe mass, c/w known HCC. Abdominal x-ray with mild small bowel dilatation and
moderate air in the colon. He now returns with confusion and abdominal pain. On admission noted with WBC 19,200, Na 119, bili 7.1 with prior 5-7, AST 75, ALT 53, alk phos 129 and ammonia 47. He is also noted with + blood cx with gram + cocci.
At this time he admits to no current abdominal pain but intermittent pain since April. He otherwise admits to forgetfulness with admission but denies dysphagia, GERD, nausea, vomiting, diarrhea, constipation, blood or black in stools. Denies
any current ETOH use.
Past Medical History
Past Medical History: Other (hereditary hemochromatosis, cirrhosis, hepatocellular carcinoma with tumor ablation 2018 and Y90 in april 2023 at [place], esophageal varices (s/p multiple bandings), colon polyps, , cholelithiasis )
Past Surgical History: Other (liver tumor ablation (2018), Y90 radioembolization therapy (04/2023 at [place]), )
Social History
Tobacco: Non-Smoker
Alcohol: Former (prior 4 days per week quit 9 years ago )
Drug: None
Personal:
Living: With Family
Family History
Family History: Other (no family history of GI malignancies ? mother suspected hemochromatosis )
Allergies / Home Medications
Allergy/AdvReac Type Severity Reaction Status Date / Time
No Known Allergies Allergy Verified 10/11/23 14:45
Medication Instructions Recorded
furosemide 20 mg tablet 20 mg PO DAILY Fluid 11/05/16
Retention/Swelling
spironolactone 50 mg tablet 50 mg PO DAILY Blood Pressure 09/23/23
ondansetron 4 mg disintegrating 4 mg PO Q6H PRN nausea 09/29/23
tablet
oxycodone 5 mg tablet 5 mg PO Q4H PRN pain 09/29/23
sennosides 8.6 mg tablet (Senokot) 17.2 mg PO DAILY Constipation 09/29/23
docusate sodium 100 mg capsule 100 mg PO DAILY STOOL SOFTENER 09/30/23
Review of Systems
-
History Source: Patient
Constitutional: Reports Fatigue
EENT: Reports No Symptoms
Respiratory: Reports No Symptoms
Cardiac: Reports No Symptoms
Abdomen/GI: Reports Abdominal Pain (intermittent )
: Reports No Symptoms
Musculoskeletal: Reports No Symptoms
Skin: Reports No Symptoms
Neurological: Reports Weakness and Other (confusions)
Endocrine: Reports No Symptoms
Hematologic/Lymphatic: Reports No Symptoms
Vital Signs
Temp Pulse Resp BP Pulse Ox
97.5 F 100 18 105/36 98
10/12/23 03:38 10/12/23 10:11 10/12/23 10:11 10/12/23 08:00 10/12/23 10:11
Physical Exam
Exam
General: Other (jaundice appearing with some forgetfulness but conversant and improved mentation per staff from last PM)
HEENT: Normocephalic and Other (juandice )
Respiratory: Clear
Cardiac: Other (tachy)
GI: Soft, Non Tender and Distended (mild)
Musculoskeletal: No Clubbing and No Cyanosis
Skin: Warm and Dry
Neuro: Awake, Alert and Other (forgetful to some questions but quickly reorients self)
Psych: Calm
Results
WBC 19.3 10^3/uL (4.8-10.8) H 10/12/23 06:12
Hgb 13.2 g/dL (13.0-18.0) 10/12/23 06:12
Hct 36.0 % (39.0-52.0) L 10/12/23 06:12
MCV 88.9 fL (80.0-94.0) 10/12/23 06:12
Plt Count 100 10^3/uL (130-400) L D 10/12/23 06:12
Absolute Neuts (auto) 17.6 10^3/uL (1.4-6.5) H 10/11/23 14:55
PT 24.6 Sec (11.4-14.6) H 10/12/23 05:32
INR 2.18 10/12/23 05:32
Sodium 121 mmol/L (135-145) L 10/12/23 05:32
Potassium 5.0 mmol/L (3.5-5.1) 10/12/23 05:32
Chloride 96 mmol/L (98-107) L 10/12/23 05:32
Carbon Dioxide 15 mmol/L (22-30) L 10/12/23 05:32
BUN 21 mg/dl (9-20) H 10/12/23 05:32
Creatinine 0.7 mg/dL (0.7-1.3) 10/12/23 05:32
Calcium 8.3 mg/dl (8.4-10.2) L 10/12/23 05:32
Total Bilirubin 7.1 mg/dl (0.2-1.3) H 10/11/23 14:55
AST 75 U/L (17-59) H 10/11/23 14:55
ALT 53 U/L (0-50) H 10/11/23 14:55
Alkaline Phosphatase 129 U/L (38-126) H 10/11/23 14:55
Diagnostic Image Results:
09/22/23 US abdomen
1). 3.7 cm hypoechoic mass in the left lobe of the liver consistent with patient's known hepatocellular carcinoma
2). Cholelithiasis
3). Moderate ascites
09/22/23 CT Abd/pelvis W Iv Cont
No findings to suggest an acute process status post paracentesis earlier today. There is a small amount of residual fluid in the abdomen. Moderate free fluid remains in the pelvis inferiorly. No findings to suggest an acute hemorrhage.
Patient has a known large heterogeneous lesion in the anterior right hepatic lobe superiorly consistent with known malignancy. There are several other smaller lesions which are again seen, findings consistent with the history of cirrhosis, severe.
History of portal hypertension, with gastroesophageal and splenic varices.
Cholelithiasis.
09/23/23 abd X ray
IMPRESSION: Mild small bowel dilatation. This can be seen with developing or partial obstruction as well as small bowel ileus. New.
Gallstones. Stable.
10/12/23 MRI adomen
Cirrhosis.
Dominant heterogeneous region spanning the medial segment of the left lobe and anterior segment of the right lobe, having diminished slightly in size, consistent with prior radioembolization and hepatic infarction. LR-TR.
Stable treated lesion in the posterior right lobe. LR-TR.There are 2 lesions in the left lobe, as described, having increased slightly in size. LR-4.Large amount of ascites.Stable prominence of the main portal vein and intrahepatic left portal vein.
The portal and hepatic veins are patent. No evidence of thrombus. small paraesophageal varices.Top normal to slightly enlarged spleen, slightly smaller in size compared to prior examination.
Large volume ascites. Similar to prior examination. 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
last para 10/07- 0 neg SBP
10/11 US abd Large volume abdominal ascites.
Prior GI Procedures:
EGD, 12/17/2022, Dr. Sarmiento:
�� � � � � � � � � � � - Scar in the lower third of the esophagus.
�� � � � � � � � � � � - Small (< 5 mm) esophageal varices.
�� � � � � � � � � � � - Portal hypertensive gastropathy.
�� � � � � � � � � � � - Normal duodenal bulb, first portion of the duodenum
�� � � � � � � � � � � and second portion of the duodenum.
EGD, 11/12/2022, Dr. Sarmiento:
�� � � � � � � � � � � - Multiple scars in the upper third of the esophagus.
�� � � � � � � � � � � - Large (> 5 mm) esophageal varices with no stigmata
�� � � � � � � � � � � of recent bleeding. Incompletely eradicated. Banded.
�� � � � � � � � � � � - Portal hypertensive gastropathy.
�� � � � � � � � � � � - Normal duodenal bulb, first portion of the duodenum
�� � � � � � � � � � � and second portion of the duodenum.
EGD, 10/19/2022. Dr. Sarmiento:
� � �� � � � � � � � � - Scar in the lower third of the esophagus.
�� � � � � � � � � � � - Small (< 5 mm) esophageal varices.
�� � � � � � � � � � � - Portal hypertensive gastropathy.
�� � � � � � � � � � � - Normal duodenal bulb, first portion of the duodenum
�� � � � � � � � � � � and second portion of the duodenum.
Colonoscopy, 09/14/2033, Dr. Hernandez:
�� � � � � � � � � � � - One 4 mm polyp in the mid sigmoid colon
�� � � � � � � � � � � - Diverticulosis in the sigmoid colon.
�� � � � � � � � � � � - The examination was otherwise normal
�� � � � � � � � � � � -Path: Tubular adenoma. Repeat colonoscopy in 5 years for surveillance..
Assessment / Plan
-
This is a 63 year old male with a past medical history of hereditary hemochromatosis, cirrhosis, hepatocellular carcinoma (diagnosed 8 years ago, s/p tumor ablation tx 2018 and Y90 radioembolization at [place] in April 2023), esophageal varices
(s/p banding). Pt was following with Dr. Mckenna for oncology care. He was following with Dr. Alcocer but switched to Dr. Clark at [facility] as concerned with continued abdominal pain since Y 90 treatment. he was admitted 2 weeks ago with abdominal
pain with stable imaging and neg SBP on para. At that time CT abd/pelvis showed no acute findings. Abdominal US showing moderate ascites, cholelithiasis and left hepatic lobe mass, c/w known HCC. Abdominal x-ray with mild small bowel dilatation and
moderate air in the colon. He now returns with confusion and abdominal pain. On admission noted with WBC 19,200, Na 119, bili 7.1 with prior 5-7, AST 75, ALT 53, alk phos 129 ammonia 47. He is also noted with + blood cx with gram + cocci.
-confusion with concern for HE with elevated ammonia
-+ blood cx/tachycardia/leukocytosis
-severe hyponatremia
--cirrhosis with hx hereditary hemochromatosis
-intractable ascites with frequent paracentesis
-HCC ablation 2018 and Y90 04/2024 -- follow up MRI 10/12
-EV with prior banding
-coagulopathy
PLAN:
Etiology of confusion with concern for HE with elevated ammonia in setting of severe hyponatremia and possible infectious with + blood cx/leukocytosis/tachycardia vs other
ID evaluation cont abx await further cx data
no current abdominal pain with recent pain on prior admission
for para to rule out SBP
cont lactulose BID - some improved mentation -- monitor for dose adjustment
current MELD 3.0 27
s/p MRI slight smaller size dominant medial segment lesion but 2 lesion in left lobs increased size await oncology input
cont to correct Na per medical team
2 gr Na diet with fluid restriction
diuretics on hold-- management per renal with severe hyponatremia
will follow
-
-
Thank you for consultation and allowing me to participate in the patient's care. Please call the cotton puller GI physician during the after hours with any questions or concerns.
[2023-10-12 10:27] LABS: Iron 47 ug/dl (49-181)
--- NOTE | 2023-10-12 10:33 | PHA.VAN.IN ---
Assessment
- Assessment
Renal Function: Appears similar to baseline
Concomitant Antimicrobials: ceftriaxone
AUC Dosing Plan
- Dosing Variables
Dosing Weight (kg): 84
Dosing CrCl (ml/min): 112
Vd coefficient (L/kg): 0.7
- Empiric Dosing
Maintenance Regimen: Vanc 1250mg Q12H - first dose now then 1800 in lieu of load
Estimated AUC (mcg*h/mL): 469
Estimated Peak (mcg*h/mL): 30.8
Estimated Trough (mcg/ml): 11.1
Estimated Half Life (H): 7.1
- Monitoring
No levels ordered at this time: consider levels in next few days
Pharmacokinetics Vancomycin I
- -
Patient Age: 63
Patient Sex: Male
Vancomycin Day #: 1
Indication: Bacteremia
Requesting Provider: Dr. Simeon
Pertinent Antimicrobial Allergies:
NKDA
Height / Weight:
Height 5 ft 11 in
Actual Weight 84.1 kg
- Vital Signs / Lab Results
Temp Pulse Resp BP Pulse Ox
97.5 F 100 18 105/36 98
10/12/23 03:38 10/12/23 10:11 10/12/23 10:11 10/12/23 08:00 10/12/23 10:11
Lab Results - Hematology
10/11/23 10/12/23 10/12/23
14:55 05:32 06:12
WBC 19.2 H Cancelled 19.3 H
Lab Results - Chemistry
10/11/23 10/11/23 10/12/23
14:55 20:25 00:16
BUN 19 20 19
Creatinine 0.8 0.8 0.8
Estimated Creat Clear 98 98
Albumin 2.9 L
10/12/23
05:32
BUN 21 H
Creatinine 0.7
Estimated Creat Clear 112
Albumin
Lab Results - Urine
10/11/23
17:48
Urine Nitrite (Reflex) Negative
Leukocyte Esterase Rfl Trace A
Urine WBC (Reflex) 0-2
Ur Squamous Epith Cells 0-2
Urine Bacteria (Reflex) Few A
Microbiology Results
10/11/23 20:25 Blood Culture - Preliminary
Blood/Venous Positive culture in progress
Gram Stain - Preliminary
10/11/23 19:10 Blood Culture - Preliminary
Blood/Venous Positive culture in progress
Gram Stain - Final
10/11/23 19:09 Blood Culture - Preliminary
Blood/Venous Positive culture in progress
Gram Stain - Final
[2023-10-12 10:37] LABS: Percent Saturation 22 % (20-50); Total Iron Binding Capacity 208 ug/dl (261-462)
--- NOTE | 2023-10-12 11:04 | CM ---
Patient with Hx Hereditary hemochromatosis with HCC with Dx TME-Increased confusion likely secondary to symptomatic hyponatremia, recurrent ascites. MRI Abdomen today. Receiving IV ceftriaxone. IR Consult for paracentesis. Per nurse assessment;
mentation improved.
Spoke with patient's Gloria.
The patient resides with his in a 3 story house with 1 CHAN.
Bedroom/bath on 2nd floor. Third floor office not used by patient due to additional stairs.
The patient was Independent ADLs/ambulation without using any assistive devices until yesterday.
He became confused yesterday, was weak and unable to do the stairs.
No DME, prior VN or SNF.
PCP - Ahmet Mckenna
Pharmacy - [facility]
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 All other family are out of state.
Gloria says she is having a difficult time managing her with his liver disease due to frequent needs for hospital visits, and weekly paracentesis on Tuesday. She would like to have someone transport him to his appointments. Provided BC
Transport phone # and explained she would need to call and apply.
Gloria is hoping patient can return home with VN. She prefers [facility] as she is aware of their reputation.
Message to Dr Stovall requesting PT/OT Evals.
Plan follow up after PT/OT Evals.
Plan offer Caregiver resources if mentation does not clear/mobility does not return to Independent.
[2023-10-12] MEDS: SODIUM BICARBONATE 650 MG PO ×3 (11:08→21:16)
[2023-10-12] MEDS: VANCOCIN 275 MG IV ×2 (11:12→19:56)
[2023-10-12 11:34] LABS: Osmolality Serum 263 mOsm/kg (275-300)
[2023-10-12 11:45] LABS: Ferritin 72.9 ng/ml (17.9-464.0)
[2023-10-12 12:01] LABS: Ammonia < 9 umol/L (9-30)
--- NOTE | 2023-10-12 13:01 | CON.MD ---
Consultation - Medical
-
IMP:
TME
symptomatic hyponatremia-acute on chronic
hepatic encephalopathy-mild
Leukocytosis-bacteremia gram-positive cocci in chains
non gap met acidosis
Hereditary hemochromatosis with hepatocellular cancer with history of Y90 radioembolization at [place] Apr 2023
Recurrent ascites-weekly paracentesis, last 10/07 4.5lit
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 Clark at [facility].
Bleeding esophageal varices history with history of banding
History of heavy alcohol use alcohol use completely stopped 9 years ago
Cholelithiasis
History of moderate aortic stenosis
PLan:
A/w confusion felt to be from hyponatremia na 119
ADH mediated high U osmo 865 but U na low <5 from liver disease
TSH and cortisol were ok
BP are soft, diuretics on hold -lsaix and Aldactone
likely resume 3% saline today with lasix
prn samsca
FR 40 ounces/day
add sodium bicarb for met acidosis
abx per ID
d/w pt
[id number]
[2023-10-12] MEDS: ROXICODONE 2.5 MG PO ×2 (13:53→20:01)
[2023-10-12] MEDS: SODIUM CHLORIDE 3% 250 IV (15:58)
[2023-10-12] MEDS: FLEXBUMIN 50 IV (16:04)
[2023-10-12 16:17] LABS: Body Fluid Protein < 2.0 g/dl
[2023-10-12 16:20] LABS: Body Fluid Mononuclear 38.4 %; Body Fluid Polymorphonuclear 61.6 %; Body Fluid WBC 146 /CUMM
[2023-10-12 16:37] LABS: Sodium 120 mmol/L (135-145)
[2023-10-12] MEDS: FLEXBUMIN 100 IV (16:57)
--- NOTE | 2023-10-12 17:25 | PTCARENOTE ---
Rec'd pt this AM. Pt off floor severalt times today for MRI and to [facility] for paracentesis. 5700ml ascitic fluid removed during para. GI [employer] CONSULTANT Mara Burnett notified. Albumin ordered. 3% NS infusing. Reports feeling much better after para. BP 95/64 but
asymptomatic. resting comfortably.
[2023-10-12 17:26] LABS: Body Fluid Second Tech DW
[2023-10-12] MEDS: ROCEPHIN 2000 MG IV (21:13)
[2023-10-12] MEDS: STERILE WATER FOR INJECTION 20 ML IV (21:13)
[2023-10-12 22:02] LABS: Sodium 123 mmol/L (135-145)
[2023-10-13] VITALS (15 sets, daily range): BP systolic 95–127; BP diastolic 59–78; PULSE 90–91; O2SAT 98; BMI 24.4
--- NOTE | 2023-10-13 00:07 | PTCARENOTE ---
pt got up and ambulated to bathroom and pulled out his iv and bled in the bathroom- housekeeping called and bathroom cleaned. pt did not fall and did not sustain any injuries. he felt very embarrassed. support given. bed alarm engaged
[2023-10-13] MEDS: ROXICODONE 2.5 MG PO ×2 (02:48→09:45)
[2023-10-13 03:54] LABS: Sodium 125 mmol/L (135-145)
[2023-10-13 05:26] LABS: % Basophils 0.1 % (0-2); % Eosinophils 1.6 % (0-6); % Immature Granulocytes 0.7 % (0-0.5); % Lymphocytes 3.6 % (20.5-51.1); Absolute Eosinophils 0.1 10^3/uL (0-0.7); Absolute Immature Granulocytes 0.1 10^3/uL (0-0.05); Absolute Lymphocytes 0.3 10^3/uL (1.2-3.4); Absolute Monocytes 1.2 10^3/uL (0.1-0.6); Hematocrit 32.3 % (39.0-52.0); Hemoglobin 11.5 g/dL (13.0-18.0); Mean Corp Hgb Conc. 35.6 g/dL (33.0-37.0); Mean Corpuscular Hgb 32.2 pg (27.0-31.0); Mean Corpuscular Volume 90.5 fL (80.0-94.0); Nucleated Red Blood Cells % 0 % (-); Red Blood Cell Count 3.57 10^6/uL (4.70-6.10); Red Cell Dist. Width 15.8 % (11.5-14.5); White Blood Cell Count 8.7 10^3/uL (4.8-10.8)
[2023-10-13] MEDS: FLUSH (NSS) 3 FLUSH IV (05:34)
[2023-10-13] MEDS: VANCOCIN 275 MG IV ×2 (05:34→17:26)
[2023-10-13 05:35] LABS: INR 2.23; PT 24.9 Sec (11.4-14.6)
[2023-10-13 05:48] LABS: ALT (SGPT) 45 U/L (0-50); AST (SGOT) 58 U/L (17-59); Albumin 2.6 g/dl (3.5-5.0); Alkaline Phosphatase 94 U/L (38-126); Blood Urea Nitrogen 22 mg/dl (9-20); Calcium 8.4 mg/dl (8.4-10.2); Carbon Dioxide 19 mmol/L (22-30); Chloride 96 mmol/L (98-107); Estimated Creatinine Clearance > 125 ml/min; Glucose 101 mg/dl (70-99); Potassium 4.3 mmol/L (3.5-5.1); Sodium 124 mmol/L (135-145); Total Bilirubin 5.1 mg/dl (0.2-1.3); Total Protein 6.3 g/dl (6.3-8.2); eGFR > 60.00
--- NOTE | 2023-10-13 06:27 | PTCARENOTE ---
pt unable to void- straight cathed for 550 ml tea colored urine-
[2023-10-13 07:41] LABS: Mean Platelet Volume 10.3 fL (7.4-10.4); Platelet Count 94 10^3/uL (130-400)
[2023-10-13] MEDS: SENOKOT 17.1999999999999993 MG PO (08:49)
[2023-10-13] MEDS: SODIUM BICARBONATE 650 MG PO ×3 (08:50→22:04)
[2023-10-13] MEDS: COLACE 100 MG PO (08:50)
[2023-10-13] MEDS: DUPHALAC/CHRONULAC 20 GRAMS PO ×2 (08:50→22:03)
--- NOTE | 2023-10-13 09:00 | PHA.VAN.FU ---
Vancomycin Assessment / Plan
- Assessment
Renal Function: Stable
WBC's are: WNL
In the past 24 hrs, patient has been: Afebrile
Concomitant Antimicrobials: ceftriaxone
- Dosing Plan
Continue: Vanc 1250mg Q12H
- Monitoring Plan
No level(s) ordered at this time: will hold off on levels for now
- Follow Up
Pharmacy will continue to follow.
Vancomycin Follow UP
- -
Patient Age: 63
Patient Sex: Male
Vancomycin Day #: 2
Indication: Bacteremia
Requesting Provider: Dr. Simeon
Pertinent Antimicrobial Allergies:
NKDA
Height / Weight:
Height 5 ft 11 in
Actual Weight 79.4 kg
- Vital Signs / Lab Results
Temp Pulse Resp BP Pulse Ox
97.6 F 82 13 103/67 96
10/13/23 07:27 10/13/23 06:00 10/13/23 06:00 10/13/23 06:00 10/13/23 06:00
Lab Results - Hematology
10/11/23 10/12/23 10/12/23
14:55 05:32 06:12
WBC 19.2 H Cancelled 19.3 H
10/13/23
05:06
WBC 8.7
Lab Results - Chemistry
10/11/23 10/11/23 10/12/23
14:55 20:25 00:16
BUN 19 20 19
Creatinine 0.8 0.8 0.8
Estimated Creat Clear 98 98
Albumin 2.9 L
10/12/23 10/13/23
05:32 05:06
BUN 21 H 22 H
Creatinine 0.7 0.6 L
Estimated Creat Clear 112 > 125
Albumin 2.6 L
Microbiology Results
10/12/23 15:00 Gram Stain - Preliminary
Peritoneal Fluid
10/11/23 20:25 Blood Culture - Preliminary
Blood/Venous Positive culture in progress
Gram Stain - Final
10/11/23 19:09 Blood Culture - Preliminary
Blood/Venous Positive culture in progress
Gram Stain - Final
10/11/23 19:10 Blood Culture - Preliminary
Blood/Venous Positive culture in progress
Gram Stain - Final
--- NOTE | 2023-10-13 09:10 | W.PN.HOSP.TC ---
Today's Communication/Plan
-
Fluid studies not consistent with SBP
Panelipse pending
Repeat cultures are negative so far
Continue antibiotics
Restart Lasix if okay with GI
Echo tomorrow
PT OT
Assessment / Plan
Assessment / Plan
Feels better
Cardiovascular system S1-S2 appreciated, sm at aa
Chest decreased breath sounds at bases but clear
Abdomen distended not much tenderness noted bowel sounds present
Liver palpable
No pedal edema
MRI of the liver 10/12/2023-cirrhosis. Dominant heterogeneous region sparing the medial segment with prior opioid embolization diminished in size. Stable treated lesion in the posterior right lobe. 2 lesions in the left lobe increased in size.
Large amount of ascites. Stable prominence of main portal vein, intrahepatic portal vein. No thrombus. Small paraesophageal varices. Slightly enlarged spleen. Stable cholelithiasis. 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
aneurysm. Ascending colon portal colopathy
#TME-Increased confusion likely secondary to symptomatic hyponatremia
Also possible that he has hepatic encephalopathy-mild
NA 124 today
-Status post 3% NA infusion
-Fluid restriction
-Osmolality studies consistent with SIADH
-Patient stopped Lasix 3 weeks ago and spironolactone-suspected hepatic encephalopathy therefore hold off on diuretics now
-CT of the head without any acute changes
# Acute leukocytosis unclear etiology possible SBO given history of ascites
-Blood cultures x 3 sets positive for gram-positive cocci in chains
-IV Rocephin to be continued
-Repeat blood cultures neg so far
-Panellipse films pending
-Check an echo tomorrow
# Hereditary hemochromatosis with hepatocellular cancer with history of Y90 radioembolization at [place] Apr 2023
Patient did not want to get liver transplant done and was stable up until last year
Follows with Dr. Mckenna
MRI of the liver as above
Last phlebotomy has been in June 2023
states that she got a call from Dr. Mckenna's office for phlebotomy-defer to oncology regarding the timing. Likely not inpatient
# Recurrent ascites
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
Bleeding esophageal varices history with history of banding
He was seeing Hepatology, Dr. Alcocer, but states that he has recently switched care to Dr. Clark at [facility].
Gets paracentesis on Fridays
Last paracentesis 10/12/23-5.7 L of fluid removed
Fluid studies not consistent with SBP
# History of heavy alcohol use alcohol use 4 days a week in the past completely stopped 9 years ago
# Cholelithiasis
# Thrombocytopenia
# Coagulopathy secondary to liver disease
# Met acidosis- PO Bicarb
# History of moderate aortic stenosis
# Hypoalbuminemia
# DVT prophylaxis-SCDs
# Patient wants to be full code
D/W RN
Spoke to and updated.
51 min spent
Anticipated Discharge: > 48 hours
Subjective/Interval History
-
Date of Service: October 13, 2023
Objective Data
-
Labs:
Laboratory Results
10/12/23 10/12/23 10/13/23
21:33 21:43 02:58
WBC
Hgb
Hct
Plt Count
PT
INR
Sodium 123 L Cancelled 125 L
Potassium
Chloride
Carbon Dioxide
BUN
Creatinine
Glucose
Calcium
Total Bilirubin
AST
ALT
Alkaline Phosphatase
10/13/23
05:06
WBC 8.7
Hgb 11.5 L
Hct 32.3 L
Plt Count 94 L
PT 24.9 H
INR 2.23
Sodium 124 L
Potassium 4.3
Chloride 96 L
Carbon Dioxide 19 L
BUN 22 H
Creatinine 0.6 L
Glucose 101 H
Calcium 8.4
Total Bilirubin 5.1 H
AST 58
ALT 45
Alkaline Phosphatase 94
Vital Signs:
Vital Signs
Temp Pulse Resp BP Pulse Ox
97.6 F 82 13 103/67 96
10/13/23 07:27 10/13/23 06:00 10/13/23 06:00 10/13/23 06:00 10/13/23 06:00
I&O
10/12/23 10/13/23 10/14/23
06:59 06:59 06:59
Intake Total 250 / 250
Output Total 150 / 150 550 / 550
Balance 100 / 100 -550 / -550
--- NOTE | 2023-10-13 09:56 | W.PN.ID1 ---
Date of Service
Date of Service: October 13, 2023
Today's Communication
awaiting tte/panellipse
continue vanc/ctx pending id/sensi
follow clinically
Assessment / Plan
Gram positive bacteremia
Leukocytosis
Decompensated Cirrhosis (EtOH and hemochromatosis)
Cholethiasis
- repeat blood cultures daily until persistently clear in two full sets
- await ID of the isolate - strep vs enterococcus
- TTE when feasible - ordered
- panellipse when feasible - ordered
- MRI abd reviewed - no evidence of infection
- paracentesis not consistent with SBP
- continue ceftriaxone pending ID
- continue vancomycin pending ID
- follow clinically
Chief Complaint
-: Bacteremia
Subjective / Review of Systems
afebrile
bp stable
paracentesis not consistent with SBP
blood cultures in progress
leukocytosis resolved
Vital Signs / Physical Exam
Vital Signs
Vital Signs
Temp Pulse Resp BP Pulse Ox
97.6 F 77 13 100/59 97
10/13/23 07:27 10/13/23 08:00 10/13/23 08:00 10/13/23 08:00 10/13/23 08:00
Physical Exam
Constitutional: No Acute Distress
Cardiovascular: Regular Rate and S1/S2; Negative Murmur or Rub
Pulmonary: Clear and Symmetric; Negative Wheezes or Rales
Gastrointestinal: Soft, Non Tender, Non Distended and Normal Bowel Sounds
Skin: Warm and Dry; Negative Rash or Jaundice
Objective Data
Lab Data
Lab Results
10/13/23 05:06
10/13/23 05:06
PT 24.9 Sec (11.4-14.6) H 10/13/23 05:06
INR 2.23 10/13/23 05:06
Estimated Creat Clear > 125 ml/min 10/13/23 05:06
Total Bilirubin 5.1 mg/dl (0.2-1.3) H 10/13/23 05:06
AST 58 U/L (17-59) 10/13/23 05:06
ALT 45 U/L (0-50) 10/13/23 05:06
Alkaline Phosphatase 94 U/L (38-126) 10/13/23 05:06
Most recent labs reviewed.
Micro Results:
10/11/23 20:25 Blood Culture - Preliminary
Blood/Venous Positive culture in progress
Gram Stain - Final
10/11/23 19:10 Blood Culture - Preliminary
Blood/Venous Positive culture in progress
Gram Stain - Final
10/11/23 19:09 Blood Culture - Preliminary
Blood/Venous Positive culture in progress
Gram Stain - Final
10/13/23 05:06 Blood Culture - Pending
Blood/Venous
10/12/23 15:00 Body Fluid Culture - Pending
Peritoneal Fluid Gram Stain - Preliminary
10/12/23 09:55 Blood Culture - Pending
Blood/Venous
--- NOTE | 2023-10-13 10:13 | W.PN.ONC ---
Today's Communication / Plan
-
Tx of Na per medicine and nephrology. Currently on hypertonic saline
MRI reveals response to Y90 therapy with trivial progression in segment 4 the left lower lobe
His decompensated liver is not secondary to progressive HCC
He needs more aggressive management of his cirrhosis
Not a great candidate for systemic therapy
AFP = 10.8 on 09/29/2023. Previous AFP = 10.6 on 08/31/2023
Ferritin level 72.9
Leukocytosis reactive and resolved
We will follow
Impression
Impression
Symptomatic hyponatremia
Leukocytosis
HCC
Advanced cirrhosis 2* to ETOH & hemochromatosis Dx 9 years ago
Hereditary hemochromatosis (baseline ferritin > 1300)
Plan
Plan
w
Subjective/Objective
Subjective/Objective
Patient feels better today. 5700 mL paracentesis yesterday. Leukocytosis resolving.
Vital Signs:
Vital Signs
Temp Pulse Resp BP Pulse Ox
97.6 F 77 13 100/59 97
10/13/23 07:27 10/13/23 08:00 10/13/23 08:00 10/13/23 08:00 10/13/23 08:00
PE: Unchanged with exception of softer abdomen post paracentesis
Lab Results:
Laboratory Data
WBC 8.7 10^3/uL (4.8-10.8) 10/13/23 05:06
Hgb 11.5 g/dL (13.0-18.0) L 10/13/23 05:06
Plt Count 94 10^3/uL (130-400) L 10/13/23 05:06
PT 24.9 Sec (11.4-14.6) H 10/13/23 05:06
INR 2.23 10/13/23 05:06
eGFR > 60.00 10/13/23 05:06
[2023-10-13] MEDS: ZOFRAN ODT (ORALLY DISINTEGRATING) 4 MG PO (11:36)
--- NOTE | 2023-10-13 12:00 | PTCARENOTE ---
Patient AAOx3, c/o abdominal pain, see PRNs. RA, NSR, VSS. +2 pitting LE edema. Jaundiced. Went for XR of teeth. Still no void since this AMs straight cath-will reassess and monitor. Patient making needs known. Bed alarm on for safety. Continuing to
closely monitor patient.
--- NOTE | 2023-10-13 12:17 | W.PN.NEPH.PH ---
Today's Communication / Plan
-
samsca and recheck later
Assessment/Plan
-
IMP:
TME
symptomatic hyponatremia-acute on chronic
hepatic encephalopathy-mild
Leukocytosis-bacteremia gram-positive cocci in chains
non gap met acidosis
Hereditary hemochromatosis with hepatocellular cancer with history of Y90 radioembolization at [place] Apr 2023
Recurrent ascites-weekly paracentesis, last 10/07 4.5lit
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 Clark at [facility].
Bleeding esophageal varices history with history of banding
History of heavy alcohol use alcohol use� completely stopped 9 years ago
Cholelithiasis
History of moderate aortic stenosis
PLan:
A/w confusion felt to be from hyponatremia na 119
ADH mediated high U osmo 865 but U na low <5 from liver disease
TSH and cortisol were ok
BP are soft, diuretics on hold -lasix and Aldactone
sodium better at 124 with 3% saline, will dose samsca today-recheck later today
FR 40 ounces/day
cont sodium bicarb for met acidosis-improving
abx per ID
d/w pt
-
-
Date of Service: October 13, 2023
CC / HPI / ROS
-
Chief Complaint:
hyponatremia
History of Present Illness:
sodium better at 124, Bp stable
no fever
met acidosis improving to 19
Review of Systems:
no cp or sob
c/o abd distension causing pressure on the chest
Labs
-
Labs:
WBC 8.7 10^3/uL (4.8-10.8) 10/13/23 05:06
RBC 3.57 10^6/uL (4.70-6.10) L 02/01/24 05:06
Hgb 11.5 g/dL (13.0-18.0) L 10/13/23 05:06
Hct 32.3 % (39.0-52.0) L 10/13/23 05:06
Plt Count 94 10^3/uL (130-400) L 10/13/23 05:06
Sodium 124 mmol/L (135-145) L 10/13/23 05:06
Potassium 4.3 mmol/L (3.5-5.1) 10/13/23 05:06
Chloride 96 mmol/L (98-107) L 10/13/23 05:06
Carbon Dioxide 19 mmol/L (22-30) L 10/13/23 05:06
BUN 22 mg/dl (9-20) H 10/13/23 05:06
Creatinine 0.6 mg/dL (0.7-1.3) L 10/13/23 05:06
eGFR > 60.00 10/13/23 05:06
Glucose 101 mg/dl (70-99) H 10/13/23 05:06
Calcium 8.4 mg/dl (8.4-10.2) 10/13/23 05:06
Albumin 2.6 g/dl (3.5-5.0) L 10/13/23 05:06
Physical Exam
-
Vital Signs:
Vital Signs
Temp Pulse Resp BP Pulse Ox
97.6 F 96 12 114/73 98
10/13/23 11:06 10/13/23 10:00 10/13/23 10:00 10/13/23 10:00 10/13/23 10:00
Cardiovascular:: Regular rate and rhythm
Respiratory:: Bilateral: CTA
Lung Excursion:: Normal
Abdomen:: Distended and Soft
Extremity Edema:: +1: Bilateral:
Ochoa Catheter: No
[2023-10-13] MEDS: TIGAN 200 MG IM (12:45)
[2023-10-13] MEDS: SAMSCA 15 MG PO ×2 (13:43→22:05)
[2023-10-13] MEDS: PROTONIX 40 MG PO (13:43)
--- NOTE | 2023-10-13 14:50 | W.PN.GI.CBS2 ---
Today's Communication / Plan
-
PLAN:
-Etiology of confusion with concern for HE with elevated ammonia in setting of severe hyponatremia and possible infectious with + blood cx/leukocytosis/tachycardia vs other
current MELD 3.0- 27
No evidence of decompensation at this time
Alert oriented x 3 without any asterixis at this time. Continue lactulose 20 g twice a day. Monitor bowel movements electrolytes.
Gram-positive cocci noted in cultures, final culture pending
No evidence of SBP on paracentesis
Antibiotics per ID -currently on ceftriaxone and oral vancomycin
-Some mid abdominal discomfort, agree with PPI
-Hyponatremia
Nephrology on board
Diuretics are on hold currently with hyponatremia.
-s/p MRI slight smaller size dominant medial segment lesion but 2 lesion in left lobs increased size
He needs to closely follow-up with his hepatology team at [facility].
Will send a message to our office as well.
Will follow
Assessment / Plan
-
This is a 63 year old male with a past medical history of hereditary hemochromatosis, cirrhosis, hepatocellular carcinoma (diagnosed 8 years ago, s/p tumor ablation tx 2018 and Y90 radioembolization at [place] in April 2023), esophageal varices
(s/p banding). Pt was following with Dr. Mckenna for oncology care. He was following with Dr. Alcocer but switched to Dr. Clark at [facility] as concerned with continued abdominal pain since Y 90 treatment. he was admitted 2 weeks ago with abdominal
pain with stable imaging and neg SBP on para. At that time CT abd/pelvis showed no acute findings. Abdominal US showing moderate ascites, cholelithiasis and left hepatic lobe mass, c/w known HCC. Abdominal x-ray with mild small bowel dilatation and
moderate air in the colon. He now returns with confusion and abdominal pain. On admission noted with WBC 19,200, Na 119, bili 7.1 with prior 5-7, AST 75, ALT 53, alk phos 129 ammonia 47. He is also noted with + blood cx with gram + cocci.
-confusion with concern for HE with elevated ammonia
-+ blood cx/tachycardia/leukocytosis
-severe hyponatremia
--cirrhosis with hx hereditary hemochromatosis
-intractable ascites with frequent paracentesis
-HCC ablation 2019 and Y90 04/2024 -- follow up MRI 10/12
-EV with prior banding
-coagulopathy
PLAN:
-Etiology of confusion with concern for HE with elevated ammonia in setting of severe hyponatremia and possible infectious with + blood cx/leukocytosis/tachycardia vs other
current MELD 3.0- 27
No evidence of decompensation at this time
Alert oriented x 3 without any asterixis at this time. Continue lactulose 20 g twice a day. Monitor bowel movements electrolytes.
Gram-positive cocci noted in cultures, final culture pending
No evidence of SBP on paracentesis
Antibiotics per ID -currently on ceftriaxone and oral vancomycin
-Some mid abdominal discomfort, agree with PPI
-Hyponatremia
Nephrology on board
Diuretics are on hold currently with hyponatremia.
-s/p MRI slight smaller size dominant medial segment lesion but 2 lesion in left lobs increased size
He needs to closely follow-up with his hepatology team at [facility].
Will send a message to our office as well.
Will follow
Subjective
Subjective
Date of Service: October 13, 2023
Patient reports discomfort in the mid abdomen which is chronic. No nausea or vomiting. Brown bowel movement today
Objective
Data Reviewed
Laboratory Data:
Laboratory Results
10/13/23 05:06
Laboratory Results
PT 24.9 Sec (11.4-14.6) H 10/13/23 05:06
INR 2.23 10/13/23 05:06
Magnesium 2.3 mg/dl (1.6-2.3) 10/12/23 05:32
Total Bilirubin 5.1 mg/dl (0.2-1.3) H 10/13/23 05:06
AST 58 U/L (17-59) 10/13/23 05:06
ALT 45 U/L (0-50) 10/13/23 05:06
Alkaline Phosphatase 94 U/L (38-126) 10/13/23 05:06
Vital Signs and I&O:
Vital Signs
Temp Pulse Resp BP Pulse Ox
97.6 F 83 14 95/71 97
10/13/23 11:06 10/13/23 12:00 10/13/23 12:00 10/13/23 12:00 10/13/23 12:00
I&O
10/12/23 10/13/23 10/14/23
06:59 06:59 06:59
Intake Total 250 / 250
Output Total 150 / 150 550 / 550
Balance 100 / 100 -550 / -550
Physical Exam
Physical Exam
GI: Soft, Non Tender and Normal Bowel Sounds
Extremities: Edema
[2023-10-13] MEDS: ZOFRAN 4 MG IV (17:24)
[2023-10-13] MEDS: ROXICODONE 5 MG PO (17:27)
[2023-10-13 20:05] LABS: Sodium 124 mmol/L (135-145)
[2023-10-13] MEDS: ROCEPHIN 2000 MG IV (20:07)
[2023-10-13] MEDS: STERILE WATER FOR INJECTION 20 ML IV (20:07)
[2023-10-13] MEDS: COMPAZINE 5 MG IV (22:09)
[2023-10-14] VITALS (9 sets, daily range): BP systolic 97–126; BP diastolic 75–85; PULSE 97–115; O2SAT 97; BMI 24.2
--- NOTE | 2023-10-14 02:43 | PTCARENOTE ---
AAOx3, but drowsy and forgetful at times. NSR, VSS. Pt experiencing episodes of extreme nausea with dry heaving, but no emesis. Condition relayed to JORGE Navarrete. PRN compazine given per order until PRN zofran is due. Pt able to ambulate to bathroom
with assist x1 to void. Bed alarm set for pt safety. Call donovan placed within reach
[2023-10-14] MEDS: ROXICODONE 5 MG PO ×4 (02:59→22:19)
[2023-10-14] MEDS: ZOFRAN 4 MG IV ×2 (02:59→08:56)
[2023-10-14 04:54] LABS: Hematocrit 33.6 % (39.0-52.0); Hemoglobin 12.1 g/dL (13.0-18.0); Mean Corpuscular Hgb 32.1 pg (27.0-31.0); Mean Corpuscular Volume 89.1 fL (80.0-94.0); Mean Platelet Volume 10.6 fL (7.4-10.4); Platelet Count 129 10^3/uL (130-400); Red Blood Cell Count 3.77 10^6/uL (4.70-6.10); White Blood Cell Count 12.4 10^3/uL (4.8-10.8)
[2023-10-14 05:05] LABS: INR 2.14; PT 24.1 Sec (11.4-14.6)
[2023-10-14 05:23] LABS: ALT (SGPT) 48 U/L (0-50); AST (SGOT) 69 U/L (17-59); Albumin 2.6 g/dl (3.5-5.0); Alkaline Phosphatase 108 U/L (38-126); Blood Urea Nitrogen 18 mg/dl (9-20); Calcium 8.5 mg/dl (8.4-10.2); Carbon Dioxide 17 mmol/L (22-30); Chloride 96 mmol/L (98-107); Direct Bilirubin 1.8 mg/dl (0.0-0.4); Estimated Creatinine Clearance 112 ml/min; Glucose 137 mg/dl (70-99); Potassium 4.5 mmol/L (3.5-5.1); Sodium 124 mmol/L (135-145); Total Bilirubin 4.8 mg/dl (0.2-1.3); Total Protein 6.3 g/dl (6.3-8.2); eGFR > 60.00
[2023-10-14] MEDS: VANCOCIN 275 MG IV ×2 (06:01→18:11)
[2023-10-14] MEDS: SENOKOT 17.1999999999999993 MG PO (08:49)
[2023-10-14] MEDS: LASIX 20 MG PO (08:49)
[2023-10-14] MEDS: SODIUM BICARBONATE 650 MG PO ×3 (08:49→21:48)
[2023-10-14] MEDS: COLACE 100 MG PO (08:49)
[2023-10-14] MEDS: PROTONIX 40 MG PO (08:49)
[2023-10-14] MEDS: DUPHALAC/CHRONULAC 20 GRAMS PO ×2 (08:49→21:48)
--- NOTE | 2023-10-14 09:00 | W.PN.ID1 ---
Addendum entered and electronically signed by Sarah Simeon MD 10/14/23 09:59:
heard back from GI - bernardo is fine
cardiology consulted to consider bernardo
Original Note:
Date of Service
Date of Service: October 14, 2023
Today's Communication
- agree with ceftriaxone pending ID
- continue vancomycin pending ID
- follow clinically
asked GI to comment on risk of BERNARDO given MELD
Assessment / Plan
Gram positive bacteremia
Leukocytosis
Decompensated Cirrhosis (EtOH and hemochromatosis)
Cholethiasis
- repeat blood cultures daily until persistently clear in two full sets
10/12 and 10/13 no growth to date
- await ID of the isolate - strep vs enterococcus
- TTE - no vegetations- but thickened av
- asked GI to comment on risk of BERNARDO given his MELD
- panellipse - no lesions
- MRI abd - no evidence of infection
- paracentesis not consistent with sbp
- agree with ceftriaxone pending ID
- continue vancomycin pending ID
- follow clinically
Chief Complaint
-: Bacteremia
Subjective / Review of Systems
afebrile
bp stable
mild leukocytosis overall improved
hgb stable
plt improved
cr stable
MRI abd no evidence of infection
panellipse
body fluid culture no growth
Vital Signs / Physical Exam
Vital Signs
Vital Signs
Temp Pulse Resp BP Pulse Ox
97.9 F 93 13 117/83 95
10/14/23 03:52 10/14/23 06:00 10/14/23 06:00 10/14/23 06:00 10/14/23 06:00
Physical Exam
Constitutional: Acutely Ill (tired appearing) and Chronically Ill
Cardiovascular: Regular Rate, S1/S2 and Murmur (loudest in the mitral area); Negative Rub
Pulmonary: Clear and Symmetric; Negative Wheezes or Rales
Gastrointestinal: Soft, Non Tender, Non Distended and Normal Bowel Sounds
Skin: Warm and Dry; Negative Rash or Jaundice
Objective Data
Lab Data
Lab Results
10/14/23 04:02
10/14/23 04:02
PT 24.1 Sec (11.4-14.6) H 10/14/23 04:02
INR 2.14 10/14/23 04:02
Estimated Creat Clear 112 ml/min 10/14/23 04:02
Total Bilirubin 4.8 mg/dl (0.2-1.3) H 10/14/23 04:02
AST 69 U/L (17-59) H 10/14/23 04:02
ALT 48 U/L (0-50) 10/14/23 04:02
Alkaline Phosphatase 108 U/L (38-126) 10/14/23 04:02
Most recent labs reviewed.
Micro Results:
10/13/23 05:06 Blood Culture - Preliminary
Blood/Venous No Growth in 24 hours- Final report to follow
10/12/23 15:00 Body Fluid Culture - Preliminary
Peritoneal Fluid No Growth After 18-24 Hours
Gram Stain - Preliminary
10/11/23 19:09 Blood Culture - Preliminary
Blood/Venous Positive culture in progress
Gram Stain - Final
10/12/23 09:55 Blood Culture - Preliminary
Blood/Venous No Growth in 24 hours- Final report to follow
10/11/23 20:25 Blood Culture - Preliminary
Blood/Venous Positive culture in progress
Gram Stain - Final
10/11/23 19:10 Blood Culture - Preliminary
Blood/Venous Positive culture in progress
Gram Stain - Final
--- NOTE | 2023-10-14 10:00 | W.PN.HOSP.TC ---
Today's Communication/Plan
-
Continue antibiotics
Await identification of the bacteria
HESHAM
Assessment / Plan
Assessment / Plan
Cardiovascular system S1-S2 appreciated, sm at aa
Chest decreased breath sounds at bases but clear
Abdomen distended not much tenderness noted bowel sounds present
Liver palpable
Awake and alert appears to be very tired.
MRI of the liver 10/12/2023-cirrhosis. Dominant heterogeneous region sparing the medial segment with prior opioid embolization diminished in size. Stable treated lesion in the posterior right lobe. 2 lesions in the left lobe increased in size.
Large amount of ascites. Stable prominence of main portal vein, intrahepatic portal vein. No thrombus. Small paraesophageal varices. Slightly enlarged spleen. Stable cholelithiasis. 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
aneurysm. Ascending colon portal colopathy
No cortical bony destructive process in the mandible on x-ray
Echo 10/12/2023 normal LV size and function. Mild LVH. Ejection fraction 60 to 65%. Thickened aortic valve with restricted leaflet motion 4. Moderate to severe AAS. Mild TR. Pulmonary pressure 30 to 35 mmHg.
#TME-Increased confusion likely secondary to symptomatic hyponatremia
Also possible that he has hepatic encephalopathy-mild
NA 124 today
Mentation slowly improving
-Status post 3% NA infusion
-Fluid restriction
-Osmolality studies consistent with SIADH
-Patient stopped Lasix 3 weeks ago and spironolactone
-Restarted Lasix
-Status post Samsca
-CT of the head without any acute changes
# Gram-positive bacteremia
-Source unclear
-Blood cultures x 3 sets positive for gram-positive cocci in chains
-IV Rocephin and vancomycin to be continued
-Repeat blood cultures neg so far
-Needs HESHAM per discussion with ID
-Cardiology consulted
# Hereditary hemochromatosis with hepatocellular cancer with history of Y90 radioembolization at [place] Apr 2023
Patient did not want to get liver transplant done and was stable up until last year
Follows with Dr. Mckenna
MRI of the liver as above
Last phlebotomy has been in June 2023
# Recurrent ascites
Decompensated cirrhosis
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
Bleeding esophageal varices history with history of banding
He was seeing Hepatology, Dr. Alcocer, but states that he has recently switched care to Dr. Clark at [facility].
Gets paracentesis on Fridays
Last paracentesis 10/12/23-5.7 L of fluid removed
Fluid studies not consistent with SBP
# History of heavy alcohol use alcohol use 4 days a week in the past completely stopped 9 years ago
# Cholelithiasis
# Thrombocytopenia
# Coagulopathy secondary to liver disease
# Met acidosis- PO Bicarb
# History of moderate aortic stenosis
# Hypoalbuminemia
# DVT prophylaxis-SCDs
# Patient wants to be full code
D/W RN
Discussed with infectious disease
Had a very long conversation with the patient's she asked if patient could get better or if this is going to be. A terminal illness.
Updated regarding the plan for HESHAM and also explained why his oxycodone was cut in half.(Which is back to his usual dose now.)
She is frustrated by the fact that patient has not been the same since this Y90 radiation. They switched from [place] to [facility].
We discussed about treating his infection now and getting evaluated at [facility] in regards to his liver masses and cirrhosis to see what the next step would be in terms of his treatment.
Time 53 min
Anticipated Discharge: > 48 hours
Subjective/Interval History
-
Date of Service: October 14, 2023
Objective Data
-
Labs:
Laboratory Results
10/14/23
04:02
WBC 12.4 H
Hgb 12.1 L
Hct 33.6 L
Plt Count 129 L D
PT 24.1 H
INR 2.14
Sodium 124 L
Potassium 4.5
Chloride 96 L
Carbon Dioxide 17 L
BUN 18
Creatinine 0.7
Glucose 137 H
Calcium 8.5
Total Bilirubin 4.8 H
AST 69 H
ALT 48
Alkaline Phosphatase 108
Vital Signs:
Vital Signs
Temp Pulse Resp BP Pulse Ox
97.9 F 93 13 117/83 95
10/14/23 03:52 10/14/23 06:00 10/14/23 06:00 10/14/23 06:00 10/14/23 06:00
I&O
10/13/23 10/14/23 10/15/23
06:59 06:59 06:59
Intake Total 120 / 120
Output Total 550 / 550 275 / 275
Balance -550 / -550 -155 / -155
--- NOTE | 2023-10-14 10:33 | PHA.VAN.FU ---
Vancomycin Assessment / Plan
- Assessment
Renal Function: Stable
WBC's are: Trending Up
In the past 24 hrs, patient has been: Afebrile
Concomitant Antimicrobials: ceftriaxone
- Dosing Plan
Continue: vancomycin 1250 mg q12h
- Monitoring Plan
Peak Level: 10/14/23 - 2100 - after 5th dose
Trough Level: 10/15/23 - 529
- Follow Up
Pharmacy will continue to follow.
Vancomycin Follow UP
- -
Patient Age: 63
Patient Sex: Male
Vancomycin Day #: 3
Indication: Bacteremia
Requesting Provider: Dr. Simeon
Pertinent Antimicrobial Allergies:
NKDA
Height / Weight:
Height 5 ft 11 in
Actual Weight 78.8 kg
- Vital Signs / Lab Results
Temp Pulse Resp BP Pulse Ox
97.9 F 93 13 117/83 95
10/14/23 03:52 10/14/23 06:00 10/14/23 06:00 10/14/23 06:00 10/14/23 06:00
Lab Results - Hematology
10/11/23 10/12/23 10/12/23
14:55 05:32 06:12
WBC 19.2 H Cancelled 19.3 H
10/13/23 10/14/23
05:06 04:02
WBC 8.7 12.4 H
Lab Results - Chemistry
10/11/23 10/11/23 10/12/23
14:55 20:25 00:16
BUN 19 20 19
Creatinine 0.8 0.8 0.8
Estimated Creat Clear 98 98
Albumin 2.9 L
10/12/23 10/13/23 10/14/23
05:32 05:06 04:02
BUN 21 H 22 H 18
Creatinine 0.7 0.6 L 0.7
Estimated Creat Clear 112 > 125 112
Albumin 2.6 L 2.6 L
Microbiology Results
10/12/23 09:55 Blood Culture - Preliminary
Blood/Venous No Growth in 48 hours- Final report to follow
10/13/23 05:06 Blood Culture - Preliminary
Blood/Venous No Growth in 24 hours- Final report to follow
10/12/23 15:00 Body Fluid Culture - Preliminary
Peritoneal Fluid No Growth After 18-24 Hours
Gram Stain - Preliminary
10/11/23 19:09 Blood Culture - Preliminary
Blood/Venous Positive culture in progress
Gram Stain - Final
10/11/23 20:25 Blood Culture - Preliminary
Blood/Venous Positive culture in progress
Gram Stain - Final
10/11/23 19:10 Blood Culture - Preliminary
Blood/Venous Positive culture in progress
Gram Stain - Final
--- NOTE | 2023-10-14 10:51 | CON.CAR ---
Addendum entered and electronically signed by Charo To DO 10/14/23 18:50:
I saw and examined the patient.
The Associate Trainer's note was reviewed and I agree with the note.
Comment: Patient seen and examined with cardiac PA. Chart including inpatient and outpatient reviewed; his complex medical issues were discussed with GI. Noe is a 63-year-old male with moderate to severe aortic stenosis who follows with Dr. Rivas
Hugo. He also has hereditary hemochromatosis with advanced cirrhosis and hepatocellular carcinoma (diagnosed 8 years ago, s/p tumor ablation tx 2018 and Y90 radioembolization at [place] in April 2023), esophageal varices (s/p banding in November
and December 2022).� He was following with Dr. Alcocer but switched to Dr. Clark at [facility] as concerned with continued abdominal pain� since Y 90 treatment. He gets weekly paracentesis. He follows with Dr. Rivas medical oncology. Noe was admitted
October 11, 2023 with increased confusion and weakness secondary to symptomatic hyponatremia as well as hepatic encephalopathy and sepsis with gram-positive bacteremia, Strep mitis/oralis (+ clx 10/11).� Repeat blood cultures have been no growth to
date 10/12 and 10/13/23. He is being followed by multiple services including ID, GI, oncology, and nephrology. Patient was started on IV antibiotics with ceftriaxone and vancomycin. � Echocardiogram 10/12/2023 showed preserved ejection fraction with
moderate to severe aortic stenosis without evidence of valvular vegetation. ID is involved in case and is requesting cardiology assistance for transesophageal echocardiogram. At the time patient was seen this morning he was complaining of nausea
and overall ill feeling.
GEN: Awake and alert. Appears older than stated age and chronically ill. Mild distress with reports of feeling nauseous
HEENT:mmm
LUNGS: Bronchovesicular breath sounds decreased at the bases but overall clear
CV: Reg, S1/S2, 3/6 RAY throughout
ABD: Distended, firm abdomen positive bowel sounds nontender
EXT: +2 LE edema; multiple areas of ecchymosis
Plan:
Gram-positive bacteremia with blood culture 10/11/23 with Strep mitis/oralis
-Blood cultures no growth to date 10/12 and 10/13/2023
-Transthoracic echocardiogram 10/12/2023 noting preserved LV systolic function with mid cavitary gradient, EF 60 to 65%. Moderate to severe aortic stenosis with peak/mean gradients of 59/35 mmHg and aortic valve area calculated 0.9 cm�. No definite
evidence of vegetation
-Cardiology consulted for possible transesophageal echocardiogram to evaluate for possible endocarditis/determine antibiotic duration
-Discussed his complex care with GI/[place] text sent to ID to further discuss. Noe is high risk for HESHAM intubation as well as anesthesia given esophageal varices status post banding procedures last year and advanced
cirrhosis/coagulopathy/thrombocytopenia in addition to other comorbidities including significant hyponatremia and moderate to severe aortic stenosis. He would not be a surgical candidate for endocarditis related valve complications. Given
serially negative repeat blood cultures and high procedural risk, recommend not proceeding with transesophageal echocardiogram.
-Please follow serial blood cultures
-Continue IV antibiotics with duration determined by ID
-Can repeat transthoracic echocardiogram, if needed, next week
-Called his Kamryn and discussed over the phone who is in agreement with plan. All questions answered
Original Note:
Consultation
Consultation Request
Date/Time Consultation Requested: 10/14/2023
Date/Time Consultation Performed: 10/14/2023
Requesting Provider: Dr. Simeon
Performing Provider: Hoa Bailey PA-C for Dr. Arias
Reason for Consultation: Bacteremia
Medical History
-
History of Present Illness:
Patient is a 63-year-old male with aortic stenosis, hereditary hemochromatosis,�advanced cirrhosis and hepatocellular carcinoma (HCC) s/p Y90 chemoembolization at [facility] in 04/2023 whom presented with generalized weakness, confusion and
abdominal pain for several days.� He gets weekly paracentesis.� On arrival he was noted to be hyponatremic with leukocytosis. Blood cultures have grown gram-positive bacteremia. Patient was started on IV antibiotics with ceftriaxone and
vancomycin. Echocardiogram 10/12/2023 showed preserved ejection fraction with moderate to severe aortic stenosis without evidence of valvular vegetation. ID is involved in case and is requesting cardiology assistance for transesophageal
echocardiogram.
At time of this evaluation patient lying in bed. Patient complains of intermittent abdominal pain and nausea. Admits that he drank orange juice approximately an hour ago. Denies chest pain or shortness of breath.
PMH:
Aortic stenosis, mod-severe
Hemochromatosis with cirrhosis Dx 2014
Hepatocellular carcinoma (HCC) with some POD 07/2023 s/p Y90 at [facility] 04/2023
Gallstones
Ascites controlled with weekly paracentesis
Esophageal varices determined by endoscopy
Past Medical History
Past Medical History: Other (See HPI)
Past Surgical History: Urological (vasectomy) and Other (Liver ablation 2016)
Social History
Tobacco: Non-Smoker
Alcohol: Former (quit ~ 2014)
Drug: None
Personal:
Living: With Family ()
Employment: Disabled
Family History
Family History: Other (Mother Liver CA, DM. Father should down in WWII)
Allergies / Home Medications
Allergy/AdvReac Type Severity Reaction Status Date / Time
No Known Allergies Allergy Verified 10/11/23 14:45
Medication Instructions Recorded Confirmed Type
furosemide 20 mg tablet 20 mg PO DAILY Fluid 11/05/16 10/11/23 History
Retention/Swelling
spironolactone 50 mg tablet 50 mg PO DAILY Blood Pressure 09/23/23 10/11/23 History
ondansetron 4 mg disintegrating 4 mg PO Q6H PRN nausea 09/29/23 10/11/23 History
tablet
oxycodone 5 mg tablet 5 mg PO Q4H PRN pain 09/29/23 10/11/23 History
sennosides 8.6 mg tablet (Senokot) 17.2 mg PO DAILY Constipation 09/29/23 10/11/23 History
docusate sodium 100 mg capsule 100 mg PO DAILY STOOL SOFTENER 09/30/23 10/11/23 History
Physical Exam
Vital Signs
Temp Pulse Resp BP Pulse Ox
97.9 F 93 13 117/83 95
10/14/23 03:52 10/14/23 06:00 10/14/23 06:00 10/14/23 06:00 10/14/23 06:00
GEN: No distress, awake, Ox3
HEENT: supple, anicteric, mmm
LUNGS: mildly decreased at bases otherwise CTA, no wheezes/rales
CV: Reg, S1/S2, 3/6 syst murmur, no rubs or gallops
ABD: hard, firm, BS+
EXT: +2 LE edema, no clubbing or cyanosis
NEURO: Gross non-focal
SKIN: No rash, warm, dry, intact
Lab Results
10/14/23 04:02
10/14/23 04:02
Impression / Plan
-
PCP: None, states primary care is provided by Dr. Mckenna
Marker Assembler: Dr. Arias
Impression:
Presented 10/11/2023 with confusion, weakness, abdominal pain, nausea
Symptomatic hyponatremia
Leukocytosis
Bacteremia, gram-positive
Ascites
s/p paracentesis 5700 cc 10/12/23
HCC
Advanced cirrhosis 2* to ETOH & hemochromatosis Dx 9 years ago
Aortic stenosis, moderate on echo 07/2022
Hemochromatosis with cirrhosis
Gallstones
Ascites controlled with weekly paracentesis
Esophageal varices determined by endoscopy
Echo 10/12/2023: EF 60 to 65%, mid cavitary gradient is present. Moderate to severe aortic stenosis peak/mean gradient 59/35 mmHg with KIRK 0.9 cm�. Mild TR with PAP 30 to 35 mmHg. No significant change compared to study July 2022.
Echo 08/11/22: NL lv function, mild-mod conc lvh, moderate with mpg of 35 mm Hg, kirk 1.0 cm
Plan:
Patient is a 63-year-old male with aortic stenosis, hereditary hemochromatosis,�advanced cirrhosis and hepatocellular carcinoma (HCC) s/p Y90 chemoembolization at [facility] in 04/2023 whom presented with generalized weakness, confusion and
abdominal pain for several days.� He gets weekly paracentesis.� On arrival he was noted to be hyponatremic with leukocytosis. Blood cultures have grown gram-positive bacteremia. Patient was started on IV antibiotics with ceftriaxone and
vancomycin. Echocardiogram 10/12/2023 showed preserved ejection fraction with moderate to severe aortic stenosis without evidence of valvular vegetation. ID is involved in case and is requesting cardiology assistance for transesophageal
echocardiogram.
At time of this evaluation patient lying in bed. Patient complains of intermittent abdominal pain and nausea. Admits that he drank orange juice approximately an hour ago. Denies chest pain or shortness of breath.
-Presented 10/11/2023 with confusion, weakness, abdominal pain and nausea.
-Gram-positive bacteremia on blood cultures. Started on IV vancomycin and ceftriaxone. Being followed closely with ID.
-Transthoracic echocardiogram performed which showed preserved ejection fraction with moderate aortic stenosis and no evidence of valvular vegetation. MRI abd no evidence of infection
-ID requesting HESHAM. Patient currently nauseous and did have orange juice this am. Anticipate HESHAM to be scheduled 10/17/2023, keep NPO starting 10/16.
-Continue supportive care per primary service, GI and ID.
Data Reviewed
-
EKG: Report Reviewed by me, Discussed with Physician, Discussed with Nurse and Discussed with Patient
Radiology: Report Reviewed by me, Discussed with Physician and Discussed with Patient
Medical Tests (Nuc Med, Echo etc): Report Reviewed by me, Discussed with Physician and Discussed with Patient
Labs: Discussed with Physician, Discussed with Nurse and Discussed with Patient
Old Records: Reviewed
--- NOTE | 2023-10-14 11:49 | W.PN.NEPH.PH ---
Today's Communication / Plan
-
3%
Assessment/Plan
-
IMP:
TME
symptomatic hyponatremia-acute on chronic
hepatic encephalopathy-mild
Leukocytosis-bacteremia gram-positive cocci in chains
non gap met acidosis
Hereditary hemochromatosis with hepatocellular cancer with history of Y90 radioembolization at [place] Apr 2023
Recurrent ascites-weekly paracentesis, last 10/07 4.5lit
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 Clark at [facility].
Bleeding esophageal varices history with history of banding
History of heavy alcohol use alcohol use� completely stopped 9 years ago
Cholelithiasis
History of moderate aortic stenosis
Plan:
-3%NaCl today
-follow BMP
-could consider NaCl tabs with lasix if needed so long as net diuresis
-
-
Date of Service: October 14, 2023
CC / HPI / ROS
-
Chief Complaint:
hyponatremia
History of Present Illness:
sodium stable at 124 despite samsca
BP stable
no fever
Review of Systems:
no cp or sob
Labs
-
Labs:
WBC 12.4 10^3/uL (4.8-10.8) H 10/14/23 04:02
RBC 3.77 10^6/uL (4.70-6.10) L 10/14/23 04:02
Hgb 12.1 g/dL (13.0-18.0) L 10/14/23 04:02
Hct 33.6 % (39.0-52.0) L 10/14/23 04:02
Plt Count 129 10^3/uL (130-400) L D 10/14/23 04:02
Sodium 124 mmol/L (135-145) L 10/14/23 04:02
Potassium 4.5 mmol/L (3.5-5.1) 10/14/23 04:02
Chloride 96 mmol/L (98-107) L 10/14/23 04:02
Carbon Dioxide 17 mmol/L (22-30) L 10/14/23 04:02
BUN 18 mg/dl (9-20) 10/14/23 04:02
Creatinine 0.7 mg/dL (0.7-1.3) 10/14/23 04:02
eGFR > 60.00 10/14/23 04:02
Glucose 137 mg/dl (70-99) H 10/14/23 04:02
Calcium 8.5 mg/dl (8.4-10.2) 10/14/23 04:02
Albumin 2.6 g/dl (3.5-5.0) L 10/14/23 04:02
Physical Exam
-
Vital Signs:
Vital Signs
Temp Pulse Resp BP Pulse Ox
97.7 F 93 13 117/83 95
10/14/23 11:41 10/14/23 06:00 10/14/23 06:00 10/14/23 06:00 10/14/23 06:00
Cardiovascular:: Regular rate and rhythm
Respiratory:: Bilateral: Coarse
Lung Excursion:: Normal
Abdomen:: Distended, Nontender and Soft
Bowel Sounds:: Normal
Extremity Edema:: None: Bilateral:
--- NOTE | 2023-10-14 12:35 | W.PN.ONC ---
Addendum entered and electronically signed by Jhonathan Gupta MD 10/14/23 14:14:
Oncology Addendum:
Patient seen and evaluated. Agree w/ PRODUCTION FINISHER note and plan as outlined
-MRI reviewed - some areas of response to Y90 w/ 2 lesions in the left lobe increased slightly in size
-ID/ nephrology following
-Na stable - hypertonic saline
-follow CBC
-cont supportive care
Original Note:
Today's Communication / Plan
-
MRI reveals response to Y90 therapy with trivial progression in segment 4 the left lower lobe
Dr. Gupta reviewed MRI with patient's spouse today over the phone
Monitor CBC with diff daily
Transfuse as needed to maintain Hgb >7, PLT >20
GI, ID, Nephrology following
Supportive care
Needs close follow up with [facility]
We will follow.
Impression
Impression
Symptomatic hyponatremia
Leukocytosis
HCC
Advanced cirrhosis 2* to ETOH & hemochromatosis Dx 9 years ago
Hereditary hemochromatosis (baseline ferritin > 1300)
Subjective/Objective
Subjective/Objective
Patient states he is not feeling well this morning due to abdominal pain.
Vital Signs:
Vital Signs
Temp Pulse Resp BP Pulse Ox
97.7 F 100 15 123/79 95
10/14/23 11:41 10/14/23 12:00 10/14/23 12:00 10/14/23 12:00 10/14/23 12:00
physical exam:
aaox3, tachycardia, lungs clear/dim
hypoactive bowel sounds, +belching, distended/ascites
+2 pitting edema bilaterally
scattered ecchymosis
Lab Results:
Laboratory Data
WBC 12.4 10^3/uL (4.8-10.8) H 10/14/23 04:02
Hgb 12.1 g/dL (13.0-18.0) L 10/14/23 04:02
Plt Count 129 10^3/uL (130-400) L D 10/14/23 04:02
PT 24.1 Sec (11.4-14.6) H 10/14/23 04:02
INR 2.14 10/14/23 04:02
eGFR > 60.00 10/14/23 04:02
10/12/23 MRI abdomen: Cirrhosis.Dominant heterogeneous region spanning the medial segment of the left lobe and anterior segment of the right lobe, having diminished slightly in size, consistent with prior radioembolization and hepatic infarction.
LR-TR.Stable treated lesion in the posterior right lobe. LR-TR.There are 2 lesions in the left lobe, as described, having increased slightly in size. LR-4.Large amount of ascites.Stable prominence of the main portal vein and intrahepatic left portal
vein. The portal and hepatic veins are patent. No evidence of thrombus.Stable small paraesophageal varices.Top normal to slightly enlarged spleen, slightly smaller in size compared to prior examination.Large volume ascites. Similar to prior
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
10/12/23 US-guided paracentesis: 5700 cc of clear rosario ascitic fluid was evacuated. Samples sent for analysis as requested. Successful ultrasound guided diagnostic and therapeutic paracentesis.
[2023-10-14] MEDS: SODIUM CHLORIDE 3% 250 IV (13:07)
--- NOTE | 2023-10-14 14:57 | W.PN.GI.CBS2 ---
Today's Communication / Plan
-
Added Xifaxan
continue lactulose
weekly para PRN
F/u at [facility] after DC
Assessment / Plan
-
This is a 63 year old male with a past medical history of hereditary hemochromatosis, cirrhosis, hepatocellular carcinoma (diagnosed 8 years ago, s/p tumor ablation tx 2018 and Y90 radioembolization at [place] in April 2023), esophageal varices
(s/p banding). Pt was following with Dr. Mckenna for oncology care. He was following with Dr. Alcocer but switched to Dr. Clark at [facility] as concerned with continued abdominal pain since treatment. he was admitted 2 weeks ago with abdominal
pain with stable imaging and neg SBP on para. At that time CT abd/pelvis showed no acute findings. Abdominal US showing moderate ascites, cholelithiasis and left hepatic lobe mass, c/w known HCC. Abdominal x-ray with mild small bowel dilatation and
moderate air in the colon. He now returns with confusion and abdominal pain. On admission noted with WBC 19,200, Na 119, bili 7.1 with prior 5-7, AST 75, ALT 53, alk phos 129 ammonia 47. He is also noted with + blood cx with gram + cocci.
-confusion with concern for HE with elevated ammonia
-+ blood cx/tachycardia/leukocytosis
-severe hyponatremia
--cirrhosis with hx hereditary hemochromatosis
-intractable ascites with frequent paracentesis
-HCC ablation 2018 and Y90 04/2024 -- follow up MRI 10/12
-EV with prior banding
-coagulopathy
PLAN:
-Etiology of confusion with concern for HE with elevated ammonia in setting of severe hyponatremia and possible infectious with + blood cx/leukocytosis/tachycardia vs other , HE resolved
current MELD 3.0- 27
No evidence of decompensation at this time
Alert oriented x 3 without any asterixis at this time. Continue lactulose 20 g twice a day. Monitor bowel movements electrolytes.
Gram-positive cocci noted in cultures, final culture pending
No evidence of SBP on paracentesis
Antibiotics per ID -currently on ceftriaxone and oral vancomycin
OK for HESHAM if indicated
-Hyponatremia
Nephrology on board
Diuretics are on hold currently with hyponatremia.
-s/p MRI slight smaller size dominant medial segment lesion but 2 lesion in left lobs increased size
He needs to closely follow-up with his hepatology team at [facility] after DC
Will s/o and will be available as needed .
Subjective
Subjective
Date of Service: October 14, 2023
He is awake and alert oriented x 3. Denies any abdominal pain currently. No rectal bleeding or melena noted
Objective
Data Reviewed
Laboratory Data:
Laboratory Results
10/14/23 04:02
Laboratory Results
PT 24.1 Sec (11.4-14.6) H 10/14/23 04:02
INR 2.14 10/14/23 04:02
Magnesium 2.3 mg/dl (1.6-2.3) 10/12/23 05:32
Total Bilirubin 4.8 mg/dl (0.2-1.3) H 10/14/23 04:02
AST 69 U/L (17-59) H 10/14/23 04:02
ALT 48 U/L (0-50) 10/14/23 04:02
Alkaline Phosphatase 108 U/L (38-126) 10/14/23 04:02
Vital Signs and I&O:
Vital Signs
Temp Pulse Resp BP Pulse Ox
97.7 F 100 15 123/79 95
10/14/23 11:41 10/14/23 12:00 10/14/23 12:00 10/14/23 12:00 10/14/23 12:00
I&O
10/13/23 10/14/23 10/15/23
06:59 06:59 06:59
Intake Total 120 / 120
Output Total 550 / 550 275 / 275
Balance -550 / -550 -155 / -155
Physical Exam
Physical Exam
Cardiology: Normal Sinus Rhythm and Murmur
Pulmonary: Clear
GI: Soft, Distended, Non Tender and Normal Bowel Sounds
[2023-10-14 17:04] LABS: Blood Urea Nitrogen 18 mg/dl (9-20); Calcium 8.6 mg/dl (8.4-10.2); Carbon Dioxide 20 mmol/L (22-30); Chloride 95 mmol/L (98-107); Estimated Creatinine Clearance 98 ml/min; Glucose 126 mg/dl (70-99); Potassium 4.6 mmol/L (3.5-5.1); Sodium 125 mmol/L (135-145); eGFR > 60.00
--- NOTE | 2023-10-14 17:11 | CM ---
Addendum entered by Kelly Lino RN 10/14/23 17:24:
Phone call to patient's Gloria; left message with update re; PT/OT [facility] and [facility] referral.
Original Note:
Patient with Hx HCC with Dx TME, hyponatremia, bacteremia, recurrent ascites s/p paracentesis. Room air. Receiving IV ceftriaxone, IV Vanco. Plan HESHAM. PT & OT recommend HH. Per nurse assessment; A/O, drowsy.
Referral placed for [facility]- no response yet to referral.
CM continuing to follow for d/c needs.
Plan offer Caregiver resources if mentation does not clear/mobility does not return to [facility].
Plan home with [facility].
[2023-10-14] MEDS: ROCEPHIN 2000 MG IV (21:48)
[2023-10-14] MEDS: XIFAXAN 550 MG PO (21:48)
[2023-10-14] MEDS: STERILE WATER FOR INJECTION 20 ML IV (21:48)
[2023-10-15] VITALS (12 sets, daily range): BP systolic 110–134; BP diastolic 70–97; BMI 24.7
[2023-10-15 00:40] LABS: Vancomycin Peak 28.4 ug/ml (18-26)
[2023-10-15] MEDS: VANCOCIN 275 MG IV (05:56)
[2023-10-15] MEDS: ROXICODONE 5 MG PO ×3 (05:57→19:53)
[2023-10-15 05:58] LABS: Hematocrit 36.4 % (39.0-52.0); Hemoglobin 13.1 g/dL (13.0-18.0); Mean Corpuscular Hgb 31.7 pg (27.0-31.0); Mean Corpuscular Volume 88.1 fL (80.0-94.0); Mean Platelet Volume 9.7 fL (7.4-10.4); Platelet Count 116 10^3/uL (130-400); Red Blood Cell Count 4.13 10^6/uL (4.70-6.10); Red Cell Dist. Width 16.1 % (11.5-14.5)
[2023-10-15 06:02] LABS: INR 2.33; PT 25.4 Sec (11.4-14.6)
[2023-10-15 06:09] LABS: Vancomycin Trough 19.8 ug/ml (5-20)
[2023-10-15 06:16] LABS: ALT (SGPT) 57 U/L (0-50); AST (SGOT) 83 U/L (17-59); Albumin 2.7 g/dl (3.5-5.0); Alkaline Phosphatase 116 U/L (38-126); Blood Urea Nitrogen 15 mg/dl (9-20); Calcium 8.3 mg/dl (8.4-10.2); Carbon Dioxide 21 mmol/L (22-30); Chloride 99 mmol/L (98-107); Estimated Creatinine Clearance 98 ml/min; Glucose 108 mg/dl (70-99); Potassium 4.6 mmol/L (3.5-5.1); Sodium 125 mmol/L (135-145); Total Bilirubin 4.8 mg/dl (0.2-1.3); Total Protein 6.6 g/dl (6.3-8.2); eGFR > 60.00
--- NOTE | 2023-10-15 06:37 | PTCARENOTE ---
Pt AAOx3, NSR on advisory internship. VSS. Pt felt too tired to ambulate overnight, experienced one episode of incontinence while sleeping and was able to void in the urinal several times. Bladder scan this morning following a period of time without
voiding was 237. Pt attempted to void afterwards, but was only able to output 10mL. Pain controlled per NOV. No nausea reported during this shift. Call donovan placed within pt reach.
--- NOTE | 2023-10-15 07:40 | W.PN.HOSP.TC ---
Today's Communication/Plan
-
cont abx as per ID
follow cultures
cont bowel regimen, prn biscadoyl suppository
Assessment / Plan
Assessment / Plan
Physical exam
General: No acute distress appears comfortable at this time
Cardio: S1-S2 appreciated
Pulm: Clear to auscultation
Abdomen: distended mild tenderness bowel sounds present Liver palpable
Neuro: Awake and alert appears to be very tired.
MRI of the liver 10/12/2023-cirrhosis. Dominant heterogeneous region sparing the medial segment with prior opioid embolization diminished in size. Stable treated lesion in the posterior right lobe. 2 lesions in the left lobe increased in size.
Large amount of ascites. Stable prominence of main portal vein, intrahepatic portal vein. No thrombus. Small paraesophageal varices. Slightly enlarged spleen. Stable cholelithiasis. 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
aneurysm. Ascending colon portal colopathy
No cortical bony destructive process in the mandible on x-ray
Echo 10/12/2023 normal LV size and function. Mild LVH. Ejection fraction 60 to 65%. Thickened aortic valve with restricted leaflet motion 4. Moderate to severe AAS. Mild TR. Pulmonary pressure 30 to 35 mmHg.
#TME-Increased confusion likely secondary to symptomatic hyponatremia
Also possible that he has hepatic encephalopathy-mild
NA 124 today
Mentation slowly improving
-Status post 3% NA infusion
-Fluid restriction
-Osmolality studies consistent with SIADH
-Patient stopped Lasix 3 weeks ago and spironolactone
-cont Lasix
-Status post Samsca
-CT of the head without any acute changes
# Gram-positive bacteremia
-Source unclear
-Blood cultures x 3 sets positive for Strep mitis ampicillin and azithromycin resistant
-IV Rocephin continued, empiric vancomycin discontinued
-Repeat blood cultures neg so far
-HESHAM as per ID, patient stable to receive HESHMA as per GI
-Cardiology consult appreciated
# Hereditary hemochromatosis with hepatocellular cancer with history of Y90 radioembolization at [place] Apr 2023
Patient did not want to get liver transplant done and was stable up until last year
Follows with Dr. Mckenna, oncology eval appreciated
MRI of the liver as above
Last phlebotomy has been in June 2023
# Recurrent ascites
Decompensated cirrhosis
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
Bleeding esophageal varices history with history of banding
He was seeing Hepatology, Dr. Alcocer, but states that he has recently switched care to Dr. Clark at [facility].
Gets paracentesis on Fridays
Last paracentesis 10/12/23-5.7 L of fluid removed
Fluid studies not consistent with SBP
# History of heavy alcohol use alcohol use 4 days a week in the past completely stopped 9 years ago
# Cholelithiasis
# Thrombocytopenia
# Coagulopathy secondary to liver disease
# Met acidosis- PO Bicarb
# History of moderate aortic stenosis
# Hypoalbuminemia
# DVT prophylaxis-SCDs
# Full Code
Dr Stovall had a very long conversation with the patient's she asked if patient could get better or if this is going to be. A terminal illness.
Updated regarding the plan for HESHAM and also explained why his oxycodone was cut in half.(Which is back to his usual dose now.)
She is frustrated by the fact that patient has not been the same since this Y90 radiation. They switched from [place] to [facility]. Discussed about treating his infection now and getting evaluated at [facility] in regards to his liver masses and
cirrhosis to see what the next step would be in terms of his treatment.
I spent a total of 55 minutes with the patient or on the floor. More than 50% of this time involved counseling and coordination of care.
Anticipated Discharge: > 48 hours
Subjective/Interval History
-
Date of Service: October 15, 2023
No acute distress sitting up comfortably in bed. Reports abd discomfort/distension and constipation.
Objective Data
-
Labs:
Laboratory Results
10/15/23
05:39
WBC 11.0 H
Hgb 13.1
Hct 36.4 L
Plt Count 116 L
PT 25.4 H
INR 2.33
Sodium 125 L
Potassium 4.6
Chloride 99
Carbon Dioxide 21 L
BUN 15
Creatinine 0.8
Glucose 108 H
Calcium 8.3 L
Total Bilirubin 4.8 H
AST 83 H
ALT 57 H
Alkaline Phosphatase 116
Vital Signs:
Vital Signs
Temp Pulse Resp BP Pulse Ox
97.7 F 94 16 134/89 98
10/15/23 07:00 10/15/23 06:00 10/15/23 06:00 10/15/23 06:00 10/15/23 06:00
I&O
10/14/23 10/15/23 10/16/23
06:59 06:59 06:59
Intake Total 120 / 120 1700 / 1700
Output Total 275 / 275 1300 / 1300
Balance -155 / -155 400 / 400
--- NOTE | 2023-10-15 07:40 | PHA.VAN.FU ---
Vancomycin Assessment / Plan
- Assessment
Renal Function: Stable
WBC's are: Trending Down
In the past 24 hrs, patient has been: Afebrile
Concomitant Antimicrobials: Ceftriaxone, Rifaximin
- Assessment - Therapeutic Drug Monitoring
Extrapolated Cmax (mcg/mL): 37.6
Peak level was drawn: More than 3 hours after previous dose
Extrapolated Cmin (mcg/mL): 19.1
Trough Drawn: Appropriately
Levels were drawn: At steady state
Calculated AUC (mcg*h/mL): 659
Calculated ke: 0.0642
Calculated half life (H): 10.8
Calculated Vd (L): 59.06
Calculated Vanc CL (ml/min): 63.22
- Dosing Plan
Adjust Regimen to: Vanc 1000mg IV q12H
New Regimen Predicts: AUC (544), Peak (31.5), Trough (15.5)
- Monitoring Plan
No level(s) ordered at this time: No levels ordered at this time.
- Follow Up
Pharmacy will continue to follow.
Vancomycin Follow UP
- -
Patient Age: 63
Patient Sex: Male
Vancomycin Day #: 4
Indication: Bacteremia
Requesting Provider: Dr. Simeon
Pertinent Antimicrobial Allergies:
NKDA
Height / Weight:
Height 5 ft 11 in
Actual Weight 80.4 kg
- Vital Signs / Lab Results
Temp Pulse Resp BP Pulse Ox
97.7 F 94 16 134/89 98
10/15/23 07:00 10/15/23 06:00 10/15/23 06:00 10/15/23 06:00 10/15/23 06:00
Lab Results - Hematology
10/13/23 10/14/23 10/15/23
05:06 04:02 05:39
WBC 8.7 12.4 H 11.0 H
Lab Results - Chemistry
10/13/23 10/14/23 10/14/23
05:06 04:02 16:41
BUN 22 H 18 18
Creatinine 0.6 L 0.7 0.8
Estimated Creat Clear > 125 112 98
Albumin 2.6 L 2.6 L
10/15/23
05:39
BUN 15
Creatinine 0.8
Estimated Creat Clear 98
Albumin 2.7 L
Microbiology Results
10/13/23 05:06 Blood Culture - Preliminary
Blood/Venous No Growth in 48 hours- Final report to follow
10/11/23 20:25 Blood Culture - Preliminary
Blood/Venous Strep mitis/oralis
Gram Stain - Final
10/11/23 19:10 Blood Culture - Preliminary
Blood/Venous Strep mitis/oralis
Gram Stain - Final
10/11/23 19:09 Blood Culture - Preliminary
Blood/Venous Strep mitis/oralis
Gram Stain - Final
10/12/23 15:00 Body Fluid Culture - Preliminary
Peritoneal Fluid No Growth After 48 Hours
Gram Stain - Preliminary
10/12/23 09:55 Blood Culture - Preliminary
Blood/Venous No Growth in 48 hours- Final report to follow
Therapeutic Drug Monitoring
Vancomycin Peak 28.4 ug/ml (18-26) H 10/15/23 00:02
Vancomycin Trough 19.8 ug/ml (5-20) 10/15/23 05:39
[2023-10-15] MEDS: DUPHALAC/CHRONULAC 20 GRAMS PO ×2 (09:06→19:53)
[2023-10-15] MEDS: PROTONIX 40 MG PO (09:07)
[2023-10-15] MEDS: COLACE 100 MG PO (09:07)
[2023-10-15] MEDS: SODIUM BICARBONATE 650 MG PO (09:07)
[2023-10-15] MEDS: XIFAXAN 550 MG PO ×2 (09:07→19:54)
[2023-10-15] MEDS: LASIX 20 MG PO (09:07)
[2023-10-15] MEDS: SENOKOT 17.1999999999999993 MG PO (09:07)
--- NOTE | 2023-10-15 11:12 | W.PN.NEPH.PH ---
Today's Communication / Plan
-
increase bicarb
Assessment/Plan
-
IMP:
TME
symptomatic hyponatremia-acute on chronic
hepatic encephalopathy-mild
Leukocytosis-bacteremia gram-positive cocci in chains
non gap met acidosis
Hereditary hemochromatosis with hepatocellular cancer with history of Y90 radioembolization at [place] Apr 2023
Recurrent ascites-weekly paracentesis, last 10/07 4.5lit
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 Clark at [facility].
Bleeding esophageal varices history with history of banding
History of heavy alcohol use alcohol use� completely stopped 9 years ago
Cholelithiasis
History of moderate aortic stenosis
Plan:
-increase bicarb
-increase lasix with increased bicarb
-follow BMP
-
-
Date of Service: October 15, 2023
CC / HPI / ROS
-
Chief Complaint:
hyponatremia
History of Present Illness:
sodium up to 125 with 3%
BP stable
no fever
Review of Systems:
no cp or sob
Labs
-
Labs:
WBC 11.0 10^3/uL (4.8-10.8) H 10/15/23 05:39
RBC 4.13 10^6/uL (4.70-6.10) L 10/15/23 05:39
Hgb 13.1 g/dL (13.0-18.0) 10/15/23 05:39
Hct 36.4 % (39.0-52.0) L 10/15/23 05:39
Plt Count 116 10^3/uL (130-400) L 10/15/23 05:39
Sodium 125 mmol/L (135-145) L 10/15/23 05:39
Potassium 4.6 mmol/L (3.5-5.1) 02/03/24 05:39
Chloride 99 mmol/L (98-107) 10/15/23 05:39
Carbon Dioxide 21 mmol/L (22-30) L 10/15/23 05:39
BUN 15 mg/dl (9-20) 10/15/23 05:39
Creatinine 0.8 mg/dL (0.7-1.3) 10/15/23 05:39
eGFR > 60.00 10/15/23 05:39
Glucose 108 mg/dl (70-99) H 10/15/23 05:39
Calcium 8.3 mg/dl (8.4-10.2) L 10/15/23 05:39
Albumin 2.7 g/dl (3.5-5.0) L 10/15/23 05:39
Physical Exam
-
Vital Signs:
Vital Signs
Temp Pulse Resp BP Pulse Ox
97.2 F 94 16 134/89 98
10/15/23 11:00 10/15/23 06:00 10/15/23 06:00 10/15/23 06:00 10/15/23 06:00
Cardiovascular:: Regular rate and rhythm
Respiratory:: Bilateral: Coarse
Lung Excursion:: Normal
Abdomen:: Nontender and Soft
Bowel Sounds:: Normal
Extremity Edema:: None: Bilateral:
--- NOTE | 2023-10-15 11:32 | W.PN.ID1 ---
Date of Service
Date of Service: October 15, 2023
Today's Communication
Recommend HESHAM.
DC Vanco. Continue ceftriaxone.
Assessment / Plan
Strep mitis/oralis bacteremia
Leukocytosis trending down
Decompensated Cirrhosis (EtOH and hemochromatosis)
Cholethiasis
- repeat blood cultures daily until persistently clear in two full sets
10/12 and 10/13 no growth to date
- TTE - no vegetations- but thickened av
-Recommend HESHAM, OK as per GI.
- panellipse - no lesions
- MRI abd - no evidence of infection
- paracentesis not consistent with sbp
- Continue ceftriaxone
- DC vancomycin
- follow clinically
Chief Complaint
-: Bacteremia
Subjective / Review of Systems
no new complaints.
Vital Signs / Physical Exam
Vital Signs
Vital Signs
Temp Pulse Resp BP Pulse Ox
97.2 F 94 16 134/89 98
10/15/23 11:00 10/15/23 06:00 10/15/23 06:00 10/15/23 06:00 10/15/23 06:00
Physical Exam
Constitutional: Comfortable
Pulmonary: Clear
Gastrointestinal: Soft, Distended and Non Distended
Objective Data
Lab Data
Lab Results
10/15/23 05:39
10/15/23 05:39
PT 25.4 Sec (11.4-14.6) H 10/15/23 05:39
INR 2.33 10/15/23 05:39
Estimated Creat Clear 98 ml/min 10/15/23 05:39
Total Bilirubin 4.8 mg/dl (0.2-1.3) H 10/15/23 05:39
AST 83 U/L (17-59) H 10/15/23 05:39
ALT 57 U/L (0-50) H 10/15/23 05:39
Alkaline Phosphatase 116 U/L (38-126) 10/15/23 05:39
Most recent labs reviewed.
Micro Results:
10/12/23 09:55 Blood Culture - Preliminary
Blood/Venous No Growth in 72 hours- Final report to follow
10/13/23 05:06 Blood Culture - Preliminary
Blood/Venous No Growth in 48 hours- Final report to follow
10/11/23 20:25 Blood Culture - Preliminary
Blood/Venous Strep mitis/oralis
Gram Stain - Final
10/11/23 19:10 Blood Culture - Preliminary
Blood/Venous Strep mitis/oralis
Gram Stain - Final
10/11/23 19:09 Blood Culture - Preliminary
Blood/Venous Strep mitis/oralis
Gram Stain - Final
10/12/23 15:00 Body Fluid Culture - Preliminary
Peritoneal Fluid No Growth After 48 Hours
Gram Stain - Preliminary
--- NOTE | 2023-10-15 12:24 | W.PN.ONC ---
Today's Communication / Plan
-
Malignancy reasonably well-controlled
HCC is not the cause of his current symptoms
Continue aggressive management of end-stage cirrhosis, hepatic encephalopathy and TME
Poor candidate for systemic therapy and current condition
Vancomycin discontinued post strep bacteremia, Cephalosporins continue
Nephrology managing hyponatremia
Impression
Impression
Symptomatic hyponatremia
Leukocytosis Regressed slightly to 11.0
HCC
Advanced cirrhosis 2* to ETOH & hemochromatosis Dx 9 years ago
Hereditary hemochromatosis (baseline ferritin > 1300)
Subjective/Objective
Subjective/Objective
States that his abdominal distention and discomfort are better today without repeatparacentesis.
Vital Signs:
Vital Signs
Temp Pulse Resp BP Pulse Ox
97.2 F 97 18 120/88 97
10/15/23 11:00 10/15/23 10:00 10/15/23 10:00 10/15/23 10:00 10/15/23 10:00
Physical Exam
Constitutional: Comfortable
Pulmonary: Clear Without rales or rhonchi
Gastrointestinal: Soft, distended with shifting dullness but no pain on palpation
Lab Results:
Laboratory Data
WBC 11.0 10^3/uL (4.8-10.8) H 10/15/23 05:39
Hgb 13.1 g/dL (13.0-18.0) 10/15/23 05:39
Plt Count 116 10^3/uL (130-400) L 10/15/23 05:39
PT 25.4 Sec (11.4-14.6) H 10/15/23 05:39
INR 2.33 10/15/23 05:39
eGFR > 60.00 10/15/23 05:39
--- NOTE | 2023-10-15 19:17 | PTCARENOTE ---
PO Irqa given x1 this shift for chronic pain 04/21 he couldn't get comfortable - did sit oob in chair for about an hour- ambulated into the bathroom with assistance. Denies any BM today despite multi bowel regimen, urine output adequate. Jaundiced,
Abdomen is grossly distended, tympanic and appetite poor. Strongly encouraging fluid restriction and educated on hyponatremia.
--- NOTE | 2023-10-15 19:30 | PTCARENOTE ---
aaox3. Iqra given for 03/21 and pain. Vss. Nsr. Abd round, distended, and full. Rocephin admin. Pt voiding rosario urine. Pt updated on plan of care. Will monitor.
[2023-10-15] MEDS: SODIUM BICARBONATE 1300 MG PO (19:54)
[2023-10-15] MEDS: ROCEPHIN 2000 MG IV (19:54)
[2023-10-15] MEDS: STERILE WATER FOR INJECTION 20 ML IV (19:54)
[2023-10-16] VITALS (12 sets, daily range): BP systolic 116–136; BP diastolic 73–92; BMI 25.1
[2023-10-16] MEDS: ROXICODONE 5 MG PO ×4 (05:12→23:37)
[2023-10-16 05:39] LABS: Hematocrit 40.5 % (39.0-52.0); Hemoglobin 14.6 g/dL (13.0-18.0); Mean Corpuscular Hgb 32.7 pg (27.0-31.0); Mean Corpuscular Volume 90.6 fL (80.0-94.0); Mean Platelet Volume 10.1 fL (7.4-10.4); Platelet Count 145 10^3/uL (130-400); Red Blood Cell Count 4.47 10^6/uL (4.70-6.10); Red Cell Dist. Width 15.9 % (11.5-14.5); White Blood Cell Count 15.7 10^3/uL (4.8-10.8)
[2023-10-16 05:58] LABS: INR 2.57; PT 27.5 Sec (11.4-14.6)
[2023-10-16 06:04] LABS: ALT (SGPT) 67 U/L (0-50); AST (SGOT) 99 U/L (17-59); Alkaline Phosphatase 135 U/L (38-126); Blood Urea Nitrogen 19 mg/dl (9-20); Calcium 8.6 mg/dl (8.4-10.2); Carbon Dioxide 22 mmol/L (22-30); Chloride 95 mmol/L (98-107); Estimated Creatinine Clearance 87 ml/min; Glucose 110 mg/dl (70-99); Potassium 4.9 mmol/L (3.5-5.1); Sodium 123 mmol/L (135-145); Total Bilirubin 5.7 mg/dl (0.2-1.3); Total Protein 7.3 g/dl (6.3-8.2); eGFR > 60.00
--- NOTE | 2023-10-16 07:51 | W.PN.HOSP.TC ---
Today's Communication/Plan
-
Likely repeat paracentesis tomorrow/Tuesday given abd distension/discomfort
3% as per nephro
cont bowel regimen, bisacodyl suppository prn
cont abx as per ID
follow cultures
Assessment / Plan
Assessment / Plan
Physical exam
General: No acute distress appears comfortable at this time
Cardio: S1-S2 appreciated
Pulm: Clear to auscultation
Abdomen: distended mild tenderness bowel sounds present Liver palpable
Neuro: Awake and alert appears to be very tired.
MRI of the liver 10/12/2023-cirrhosis. Dominant heterogeneous region sparing the medial segment with prior opioid embolization diminished in size. Stable treated lesion in the posterior right lobe. 2 lesions in the left lobe increased in size.
Large amount of ascites. Stable prominence of main portal vein, intrahepatic portal vein. No thrombus. Small paraesophageal varices. Slightly enlarged spleen. Stable cholelithiasis. 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
aneurysm. Ascending colon portal colopathy
No cortical bony destructive process in the mandible on x-ray
Echo 10/12/2023 normal LV size and function. Mild LVH. Ejection fraction 60 to 65%. Thickened aortic valve with restricted leaflet motion 4. Moderate to severe AAS. Mild TR. Pulmonary pressure 30 to 35 mmHg.
#TME-Increased confusion likely secondary to symptomatic hyponatremia
Also possible that he has hepatic encephalopathy-mild
NA 124 today
Mentation slowly improving
- 3% NA infusion as per nephro
-Fluid restriction
-Osmolality studies consistent with SIADH
-Patient stopped Lasix 3 weeks ago and spironolactone
-cont Lasix
-Status post Samsca
-CT of the head without any acute changes
# Gram-positive bacteremia
-Source unclear
-Blood cultures x 3 sets positive for Strep mitis ampicillin and azithromycin resistant
-IV Rocephin continued, empiric vancomycin discontinued
-Repeat blood cultures neg so far
-HESHAM as per ID, patient stable to receive HESHAM as per GI
-Cardiology however recommends against procedure at this time given elevated risk, patient refusing HESHAM at this time in lieu of cardio recommendations
# Hereditary hemochromatosis with hepatocellular cancer with history of Y90 radioembolization at [place] Apr 2023
Patient did not want to get liver transplant done and was stable up until last year
Follows with Dr. Mckenna, oncology eval appreciated
MRI of the liver as above
Last phlebotomy has been in June 2023
# Recurrent ascites
Decompensated cirrhosis
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
Bleeding esophageal varices history with history of banding
He was seeing Hepatology, Dr. Alcocer, but states that he has recently switched care to Dr. Clark at [facility].
Gets paracentesis on Fridays
Last paracentesis 10/12/23-5.7 L of fluid removed
Fluid studies not consistent with SBP
# History of heavy alcohol use alcohol use 4 days a week in the past completely stopped 9 years ago
# Cholelithiasis
# Thrombocytopenia
# Coagulopathy secondary to liver disease
# Met acidosis- PO Bicarb
# History of moderate aortic stenosis
# Hypoalbuminemia
# DVT prophylaxis-SCDs
# Full Code
Dr Stovall had a very long conversation with the patient's she asked if patient could get better or if this is going to be. A terminal illness.
Updated regarding the plan for HESHAM and also explained why his oxycodone was cut in half.(Which is back to his usual dose now.)
She is frustrated by the fact that patient has not been the same since this Y90 radiation. They switched from [place] to [facility]. Discussed about treating his infection now and getting evaluated at [facility] in regards to his liver masses and
cirrhosis to see what the next step would be in terms of his treatment.
I spent a total of 55 minutes with the patient or on the floor. More than 50% of this time involved counseling and coordination of care.
Anticipated Discharge: 24 - 48 hours
Subjective/Interval History
-
Date of Service: October 16, 2023
reports abdomen discomfort/distension constipation.
Objective Data
-
Labs:
Laboratory Results
10/16/23
05:26
WBC 15.7 H
Hgb 14.6
Hct 40.5
Plt Count 145 D
PT 27.5 H
INR 2.57
Sodium 123 L
Potassium 4.9
Chloride 95 L
Carbon Dioxide 22
BUN 19
Creatinine 0.9
Glucose 110 H
Calcium 8.6
Total Bilirubin 5.7 H
AST 99 H
ALT 67 H
Alkaline Phosphatase 135 H
Vital Signs:
Vital Signs
Temp Pulse Resp BP Pulse Ox
97.9 F 94 11 136/82 98
10/16/23 03:13 10/16/23 00:00 10/16/23 00:00 10/16/23 00:00 10/16/23 00:00
I&O
10/15/23 10/16/23 10/17/23
06:59 06:59 06:59
Intake Total 1700 / 1700 940 / 940
Output Total 1300 / 1300 875 / 875
Balance 400 / 400 65 / 65
[2023-10-16] MEDS: PROTONIX 40 MG PO (08:33)
[2023-10-16] MEDS: SENOKOT 17.1999999999999993 MG PO (08:33)
[2023-10-16] MEDS: XIFAXAN 550 MG PO ×2 (08:33→20:05)
[2023-10-16] MEDS: DUPHALAC/CHRONULAC 20 GRAMS PO ×2 (08:33→20:06)
[2023-10-16] MEDS: SODIUM BICARBONATE 1300 MG PO ×2 (08:33→20:05)
[2023-10-16] MEDS: COLACE 100 MG PO (08:34)
[2023-10-16] MEDS: LASIX 40 MG PO (08:34)
--- NOTE | 2023-10-16 09:15 | W.PN.ONC ---
Today's Communication / Plan
-
Has continued recurrence of symptomatic ascites
HCC is not a significant portion of his current clinical symptoms
Performance status would not pursue support systemic therapy currently
Goals of care restorative
Consider systemic treatment with some improvement in performance status
May need repeat paracentesis in the AM
Impression
Impression
Symptomatic hyponatremia
Leukocytosis persistent
HCC
Advanced cirrhosis 2* to ETOH & hemochromatosis Dx 9 years ago
Hereditary hemochromatosis (baseline ferritin > 1300)
Subjective/Objective
Subjective/Objective
Complaining of increased abdominal distention. No shortness of breath.
Vital Signs:
Vital Signs
Temp Pulse Resp BP Pulse Ox
97.6 F 99 11 130/88 98
10/16/23 07:59 10/16/23 08:34 10/16/23 00:00 10/16/23 08:34 10/16/23 00:00
Physical exam:
Essentially unchanged with the exception of slight more protuberance and shifting dullness in the abdomen
Lab Results:
Laboratory Data
WBC 15.7 10^3/uL (4.8-10.8) H 10/16/23 05:26
Hgb 14.6 g/dL (13.0-18.0) 10/16/23 05:26
Plt Count 145 10^3/uL (130-400) D 10/16/23 05:26
PT 27.5 Sec (11.4-14.6) H 10/16/23 05:26
INR 2.57 10/16/23 05:26
eGFR > 60.00 10/16/23 05:26
--- NOTE | 2023-10-16 10:15 | W.PN.NEPH.PH ---
Today's Communication / Plan
-
3%
Assessment/Plan
-
IMP:
TME
symptomatic hyponatremia-acute on chronic
hepatic encephalopathy-mild
Leukocytosis-bacteremia gram-positive cocci in chains
non gap met acidosis
Hereditary hemochromatosis with hepatocellular cancer with history of Y90 radioembolization at [place] Apr 2023
Recurrent ascites-weekly paracentesis, last 10/07 4.5lit
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 Clark at [facility].
Bleeding esophageal varices history with history of banding
History of heavy alcohol use alcohol use� completely stopped 9 years ago
Cholelithiasis
History of moderate aortic stenosis
Plan:
-continue bicarb
-continue lasix
-3% again
-paracentesis
-follow BMP
-
-
Date of Service: October 16, 2023
CC / HPI / ROS
-
Chief Complaint:
hyponatremia
History of Present Illness:
sodium down to 123
acidosis better
BP stable
no fever
Review of Systems:
no cp or sob
asking for LVP
Labs
-
Labs:
WBC 15.7 10^3/uL (4.8-10.8) H 10/16/23 05:26
RBC 4.47 10^6/uL (4.70-6.10) L 10/16/23 05:26
Hgb 14.6 g/dL (13.0-18.0) 10/16/23 05:26
Hct 40.5 % (39.0-52.0) 10/16/23 05:26
Plt Count 145 10^3/uL (130-400) D 10/16/23 05:26
Sodium 123 mmol/L (135-145) L 10/16/23 05:26
Potassium 4.9 mmol/L (3.5-5.1) 10/16/23 05:26
Chloride 95 mmol/L (98-107) L 10/16/23 05:26
Carbon Dioxide 22 mmol/L (22-30) 10/16/23 05:26
BUN 19 mg/dl (9-20) 10/16/23 05:26
Creatinine 0.9 mg/dL (0.7-1.3) 10/16/23 05:26
eGFR > 60.00 10/16/23 05:26
Glucose 110 mg/dl (70-99) H 10/16/23 05:26
Calcium 8.6 mg/dl (8.4-10.2) 10/16/23 05:26
Albumin 3.0 g/dl (3.5-5.0) L 10/16/23 05:26
Physical Exam
-
Vital Signs:
Vital Signs
Temp Pulse Resp BP Pulse Ox
97.6 F 99 11 130/88 98
10/16/23 07:59 10/16/23 08:34 10/16/23 00:00 10/16/23 08:34 10/16/23 00:00
Cardiovascular:: Regular rate and rhythm
Respiratory:: Bilateral: Coarse
Lung Excursion:: Normal
Abdomen:: Distended, Nontender and Soft
Bowel Sounds:: Normal
Extremity Edema:: +1: Bilateral:
[2023-10-16] MEDS: SODIUM CHLORIDE 3% 250 IV (10:41)
[2023-10-16] MEDS: DULCOLAX 10 MG RECTAL (13:35)
[2023-10-16 16:32] LABS: Blood Urea Nitrogen 22 mg/dl (9-20); Calcium 8.5 mg/dl (8.4-10.2); Carbon Dioxide 23 mmol/L (22-30); Chloride 91 mmol/L (98-107); Estimated Creatinine Clearance 78 ml/min; Glucose 133 mg/dl (70-99); Potassium 4.6 mmol/L (3.5-5.1); Sodium 124 mmol/L (135-145); eGFR > 60.00
--- NOTE | 2023-10-16 19:30 | PTCARENOTE ---
report received from steffanie rn. pt aaox3. nsr. vss. abd distended and tender. +ascites. pt updated on plan of care. Will monitor.
[2023-10-16] MEDS: ROCEPHIN 2000 MG IV (20:06)
[2023-10-16] MEDS: STERILE WATER FOR INJECTION 20 ML IV (20:06)
[2023-10-17] VITALS (13 sets, daily range): BP systolic 104–140; BP diastolic 60–93; PULSE 111–133; O2SAT 99; BMI 25.6
[2023-10-17] MEDS: DILAUDID 0.5 MG IV (03:39)
[2023-10-17] MEDS: ZOFRAN 4 MG IV ×2 (04:03→19:21)
--- NOTE | 2023-10-17 04:07 | PTCARENOTE ---
pt c/o 04/21 abd pain. customer sales advisor notified. 0.5mg iv Dilaudid admin. zofran admin. chg bath obtained. pt refused bladder scan. Will Monitor.
[2023-10-17 04:34] LABS: Hematocrit 40.5 % (39.0-52.0); Hemoglobin 15.1 g/dL (13.0-18.0); Mean Corp Hgb Conc. 37.3 g/dL (33.0-37.0); Mean Corpuscular Hgb 32.7 pg (27.0-31.0); Mean Corpuscular Volume 87.7 fL (80.0-94.0); Platelet Count 144 10^3/uL (130-400); Red Blood Cell Count 4.62 10^6/uL (4.70-6.10); Red Cell Dist. Width 15.8 % (11.5-14.5); White Blood Cell Count 14.5 10^3/uL (4.8-10.8)
[2023-10-17 05:05] LABS: ALT (SGPT) 65 U/L (0-50); AST (SGOT) 86 U/L (17-59); Albumin 2.6 g/dl (3.5-5.0); Alkaline Phosphatase 124 U/L (38-126); Blood Urea Nitrogen 24 mg/dl (9-20); Calcium 8.8 mg/dl (8.4-10.2); Carbon Dioxide 22 mmol/L (22-30); Chloride 92 mmol/L (98-107); Estimated Creatinine Clearance 87 ml/min; Glucose 121 mg/dl (70-99); Magnesium 2.2 mg/dl (1.6-2.3); Phosphorus 4.1 mg/dl (2.5-4.5); Potassium 4.8 mmol/L (3.5-5.1); Sodium 124 mmol/L (135-145); Total Bilirubin 5.6 mg/dl (0.2-1.3); Total Protein 6.6 g/dl (6.3-8.2); eGFR > 60.00
--- NOTE | 2023-10-17 07:02 | W.PN.HOSP.TC ---
Today's Communication/Plan
-
transfer to [facility] when bed available
cont pain control
bowel regimen
abx as per ID
samsca as per nephro
Downgrade to Telemetry
Assessment / Plan
Assessment / Plan
Physical exam
General: No acute distress appears comfortable at this time albeit fatigued
Cardio: S1-S2 appreciated
Pulm: Clear to auscultation
Abdomen: distended mild tenderness bowel sounds present Liver palpable
Ext: right PICC in place
Neuro: Lethargic but arousable oriented x3
MRI of the liver 10/12/2023-cirrhosis. Dominant heterogeneous region sparing the medial segment with prior opioid embolization diminished in size. Stable treated lesion in the posterior right lobe. 2 lesions in the left lobe increased in size.
Large amount of ascites. Stable prominence of main portal vein, intrahepatic portal vein. No thrombus. Small paraesophageal varices. Slightly enlarged spleen. Stable cholelithiasis. 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
aneurysm. Ascending colon portal colopathy
No cortical bony destructive process in the mandible on x-ray
Echo 10/12/2023 normal LV size and function. Mild LVH. Ejection fraction 60 to 65%. Thickened aortic valve with restricted leaflet motion 4. Moderate to severe AAS. Mild TR. Pulmonary pressure 30 to 35 mmHg.
#TME-Increased confusion likely secondary to symptomatic hyponatremia
Also possible that he has hepatic encephalopathy-mild
NA 124 today
Mentation slowly improving
-Nephro eval appreciated
- 3% NA infusion samsca as per nephro
-Fluid restriction
-Osmolality studies consistent with SIADH
-Patient stopped Lasix 3 weeks ago and spironolactone
-cont Lasix
-CT of the head without any acute changes
# Gram-positive bacteremia Strep mitis
-Source unclear
-Blood cultures x 3 sets positive for Strep mitis ampicillin and azithromycin resistant
-IV Rocephin continued, empiric vancomycin discontinued
-Repeat blood cultures neg so far
-HESHAM as per ID, patient stable to receive HESHAM as per GI
-Cardiology however recommends against procedure at this time given elevated risk, patient refusing HESHAM at this time in lieu of cardio recommendations
-Patient to continue with empiric treatment for IE w daily ceftriaxone through 11/23/23 picc placed 10/17
# Hereditary hemochromatosis with hepatocellular cancer with history of Y90 radioembolization at [place] Apr 2023
Patient did not want to get liver transplant done and was stable up until last year
Follows with Dr. Mckenna, oncology eval appreciated
MRI of the liver as above
Last phlebotomy has been in June 2023
# Recurrent ascites
Decompensated cirrhosis
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
Bleeding esophageal varices history with history of banding
He was seeing Hepatology, Dr. Alcocer, but states that he has recently switched care to Dr. Clark at [facility].
Gets paracentesis on Fridays
Last paracentesis 10/12/23-5.7 L of fluid removed repeated 10/17 therapeutic paracentesis 3L removed
Fluid studies not consistent with SBP
# History of heavy alcohol use alcohol use 4 days a week in the past completely stopped 9 years ago
# Cholelithiasis
# Thrombocytopenia
# Coagulopathy secondary to liver disease
# Met acidosis- PO Bicarb
# History of moderate aortic stenosis
# Hypoalbuminemia
# DVT prophylaxis-SCDs
# Full Code
Dr Stovall had a very long conversation with the patient's she asked if patient could get better or if this is going to be a terminal illness.
Updated regarding the plan for HESHAM and also explained why his oxycodone was cut in half.(Which is back to his usual dose now.)
She is frustrated by the fact that patient has not been the same since this Y90 radiation. They switched from [facility] to [facility]. Discussed about treating his infection now and getting evaluated at [facility] in regards to his liver masses and
cirrhosis to see what the next step would be in terms of his treatment.
10/17 Following discussion with GI and patient's outpatient Alumni Coordinator Dr Clark, requested transfer to [facility] for possible benefit TIPS given recurrent refractory ascites. Case was discussed with Dr Mcpherson who accepted patient for
transfer. Patient, in agreement with , consented for transfer.
Patient medically stable for downgrade telemetry 10/17
Discussed with patient and his
I spent a total of 65 minutes with the patient or on the floor. More than 50% of this time involved counseling and coordination of care.
Anticipated Discharge: 24 - 48 hours
Subjective/Interval History
-
Date of Service: October 17, 2023
Continues to report abdomen discomfort constipation but reports flatus. Later reported significant relief following repeat paracentesis 3L today. present during evaluation.
Objective Data
-
Labs:
Laboratory Results
10/17/23
03:47
WBC 14.5 H
Hgb 15.1
Hct 40.5
Plt Count 144
Sodium 124 L
Potassium 4.8
Chloride 92 L
Carbon Dioxide 22
BUN 24 H
Creatinine 0.9
Glucose 121 H
Calcium 8.8
Total Bilirubin 5.6 H
AST 86 H
ALT 65 H
Alkaline Phosphatase 124
Vital Signs:
Vital Signs
Temp Pulse Resp BP Pulse Ox
97.5 F 110 16 119/86 94
10/17/23 05:48 10/17/23 06:00 10/17/23 06:00 10/17/23 06:00 10/17/23 06:00
I&O
10/16/23 10/17/23 10/18/23
06:59 06:59 06:59
Intake Total 940 / 940 480 / 480
Output Total 875 / 875 300 / 300
Balance 65 / 65 180 / 180
[2023-10-17] MEDS: XIFAXAN 550 MG PO ×2 (09:30→21:04)
[2023-10-17] MEDS: MIRALAX 17 GRAMS PO (09:30)
[2023-10-17] MEDS: PROTONIX 40 MG PO (09:30)
[2023-10-17] MEDS: SENOKOT 17.1999999999999993 MG PO (09:30)
[2023-10-17] MEDS: LASIX 40 MG PO (09:30)
[2023-10-17] MEDS: SODIUM BICARBONATE 1300 MG PO ×2 (09:31→21:04)
[2023-10-17] MEDS: COLACE 100 MG PO (09:31)
[2023-10-17] MEDS: DUPHALAC/CHRONULAC 20 GRAMS PO ×2 (09:31→21:04)
--- NOTE | 2023-10-17 09:38 | W.PN.NEPH.PH ---
Today's Communication / Plan
-
samsca today
Assessment/Plan
-
IMP:
TME
symptomatic hyponatremia-acute on chronic
hepatic encephalopathy-mild
Leukocytosis-bacteremia gram-positive cocci in chains
non gap met acidosis
Hereditary hemochromatosis with hepatocellular cancer with history of Y90 radioembolization at [facility] Apr 2023
Recurrent ascites-weekly paracentesis, last 10/07 4.5lit
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 Clark at [facility].
Bleeding esophageal varices history with history of banding
History of heavy alcohol use alcohol use� completely stopped 9 years ago
Cholelithiasis
History of moderate aortic stenosis
Plan:
-hyponatremia persists on lasix, FR. sodium bicarbonate, and 3%
-continue bicarb
-continue lasix
-will provide samsca today
-paracentesis for today
-follow BMP
-
-
Date of Service: October 17, 2023
CC / HPI / ROS
-
Chief Complaint:
hyponatremia
History of Present Illness:
sodium down to 124 despite 3%
acidosis better
BP stable
no fever
Review of Systems:
no cp or sob
weights up
uop not accurately recorded
Labs
-
Labs:
WBC 14.5 10^3/uL (4.8-10.8) H 10/17/23 03:47
RBC 4.62 10^6/uL (4.70-6.10) L 10/17/23 03:47
Hgb 15.1 g/dL (13.0-18.0) 10/17/23 03:47
Hct 40.5 % (39.0-52.0) 10/17/23 03:47
Plt Count 144 10^3/uL (130-400) 10/17/23 03:47
Sodium 124 mmol/L (135-145) L 10/17/23 03:47
Potassium 4.8 mmol/L (3.5-5.1) 10/17/23 03:47
Chloride 92 mmol/L (98-107) L 10/17/23 03:47
Carbon Dioxide 22 mmol/L (22-30) 10/17/23 03:47
BUN 24 mg/dl (9-20) H 10/17/23 03:47
Creatinine 0.9 mg/dL (0.7-1.3) 10/17/23 03:47
eGFR > 60.00 10/17/23 03:47
Glucose 121 mg/dl (70-99) H 10/17/23 03:47
Calcium 8.8 mg/dl (8.4-10.2) 10/17/23 03:47
Phosphorus 4.1 mg/dl (2.5-4.5) 10/17/23 03:47
Albumin 2.6 g/dl (3.5-5.0) L 10/17/23 03:47
Physical Exam
-
Vital Signs:
Vital Signs
Temp Pulse Resp BP Pulse Ox
97.5 F 110 16 119/86 94
10/17/23 07:20 10/17/23 06:00 10/17/23 06:00 10/17/23 06:00 10/17/23 06:00
Cardiovascular:: Regular rate and rhythm (tachy)
Respiratory:: Bilateral: Coarse
Lung Excursion:: Normal
Abdomen:: Distended
Bowel Sounds:: Decreased
Extremity Edema:: +1: Bilateral:
--- NOTE | 2023-10-17 12:30 | W.PN.ONC ---
Today's Communication / Plan
-
CBC w/ diff daily
Therapeutic paracentesis
Supportive care
Impression
Impression
Symptomatic ascites s/p therapeutic paracentesis
Advanced cirrhosis secondary to ETOH & hemochromatosis (dx 2014)
Hereditary hemochromatosis (baseline ferritin >1300)
Hx HCC
Leukocytosis
Hyponatremia
Weakness
Subjective/Objective
Subjective/Objective
patient denies acute pain this morning. he states he is anticipating paracentesis this afternoon.
Vital Signs:
Vital Signs
Temp Pulse Resp BP Pulse Ox
97.8 F 109 21 124/90 96
10/17/23 11:15 10/17/23 11:15 10/17/23 11:15 10/17/23 11:15 10/17/23 11:15
physical exam:
aaox3, arouses to voice
HR tachy, lungs diminished
abdomen distended/ascites
+2 LE pitting edema
Lab Results:
Laboratory Data
WBC 14.5 10^3/uL (4.8-10.8) H 10/17/23 03:47
Hgb 15.1 g/dL (13.0-18.0) 10/17/23 03:47
Plt Count 144 10^3/uL (130-400) 10/17/23 03:47
PT 27.5 Sec (11.4-14.6) H 10/16/23 05:26
INR 2.57 10/16/23 05:26
eGFR > 60.00 10/17/23 03:47
10/12 Paracentesis: 5700 cc of clear rosario ascitic fluid was evacuated. Samples sent for analysis as requested.
10/12 Abdomen MRI: Cirrhosis.Dominant heterogeneous region spanning the medial segment of the left lobe and anterior segment of the right lobe, having diminished slightly in size, consistent with prior radioembolization and hepatic infarction.
LR-TR.Stable treated lesion in the posterior right lobe. LR-TR.There are 2 lesions in the left lobe, as described, having increased slightly in size. LR-4.Large amount of ascites.Stable prominence of the main portal vein and intrahepatic left portal
vein. The portal and hepatic veins are patent. No evidence of thrombus.Stable small paraesophageal varices.Top normal to slightly enlarged spleen, slightly smaller in size compared to prior examination.Large volume ascites. Similar to prior
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
2/5 paracentesis: 3000 cc of serosanguineous ascitic fluid was evacuated. Samples sent for analysis as requested.
[2023-10-17 12:39] LABS: Body Fluid Mononuclear 47.6 %; Body Fluid Polymorphonuclear 52.4 %; Body Fluid WBC 250 /CUMM
[2023-10-17] MEDS: SAMSCA 15 MG PO (13:05)
[2023-10-17 13:08] LABS: Body Fluid Albumin < 1.0 g/dl; Body Fluid LDH 146 U/L; Body Fluid Protein < 2.0 g/dl
[2023-10-17 13:28] LABS: Body Fluid Second Tech CMB
--- NOTE | 2023-10-17 13:33 | W.PN.UPDATE ---
Update Note
Progress Note Update
Patient's requested a call back from , I spoke to her and she was requesting transfer to [place] under the care of her fiberglass grinder . She wants to discuss possible TIPS for recurrent refractory ascites. He did undergo another
paracentesis today with 3000 cc drained[address]. Mcpherson at the [place] [facility] and he accepted patient in transfer to [place].
--- NOTE | 2023-10-17 13:35 | W.PN.ID1 ---
Date of Service
Date of Service: October 17, 2023
Today's Communication
Will treat with 6 weeks of ceftriaxone 2gIV q24 through 11/23/23
Home infusion sheet submitted to employment evaluator/case manager.
Assessment / Plan
Strep mitis/oralis bacteremia
Leukocytosis trending down
Decompensated Cirrhosis (EtOH and hemochromatosis)
Cholethiasis
- repeat blood cultures 10/12 and 10/13 no growth to date
- TTE - no vegetations- but thickened av
- Per cardiology, patient is not surgical candidate and therefore do not recommend HESHAM.
- Will treat with 6 weeks of ceftriaxone 2gIV q24 through 11/23/23
-Home infusion sheet submitted to employment evaluator/case manager.
- panellipse - no lesions
- MRI abd - no evidence of infection
- Repeat paracentesis not consistent with sbp
- follow clinically
Chief Complaint
-: Bacteremia
Subjective / Review of Systems
Had paracentesis just now. Abdomen better.
Vital Signs / Physical Exam
Vital Signs
Vital Signs
Temp Pulse Resp BP Pulse Ox
97.8 F 109 21 124/90 96
10/17/23 11:15 10/17/23 11:15 10/17/23 11:15 10/17/23 11:15 10/17/23 11:15
Physical Exam
Constitutional: No Acute Distress and Comfortable
Pulmonary: Clear
Gastrointestinal: Soft, Non Tender and Distended
Neurological: AO x 3
Objective Data
Lab Data
Lab Results
10/17/23 03:47
10/17/23 03:47
PT 27.5 Sec (11.4-14.6) H 10/16/23 05:26
INR 2.57 10/16/23 05:26
Estimated Creat Clear 87 ml/min 10/17/23 03:47
Total Bilirubin 5.6 mg/dl (0.2-1.3) H 10/17/23 03:47
AST 86 U/L (17-59) H 10/17/23 03:47
ALT 65 U/L (0-50) H 10/17/23 03:47
Alkaline Phosphatase 124 U/L (38-126) 10/17/23 03:47
Most recent labs reviewed.
Micro Results:
10/17/23 11:44 Body Fluid Culture - Pending
Peritoneal Fluid Gram Stain - Pending
10/12/23 09:55 Blood Culture - Final
Blood/Venous No Growth - Final Report
10/13/23 05:06 Blood Culture - Preliminary
Blood/Venous No Growth in 4 days- Final report to follow
10/11/23 20:25 Blood Culture - Final
Blood/Venous Strep mitis/oralis
Gram Stain - Final
10/11/23 19:10 Blood Culture - Final
Blood/Venous Strep mitis/oralis
Gram Stain - Final
10/11/23 19:09 Blood Culture - Final
Blood/Venous Strep mitis/oralis
Gram Stain - Final
10/12/23 15:00 Body Fluid Culture - Final
Peritoneal Fluid NO GROWTH-FINAL REPORT
Gram Stain - Final
--- NOTE | 2023-10-17 14:05 | PTCARENOTE ---
Returned from [facility] approx 1300- voided in dept. 100ml - pt more comfortable on return. Bandaid CDI to right lower quadrant abdomen. Bladder scanned 325ml not post void. Has no urge to void at this time. All bowel regimen received this am- no
stool yet -will give PRN Dulcolax. Eleazar called regarding transfer to [facility]- will notify when bed available.
[2023-10-17 15:24] LABS: Body Fluid Amylase < 30 U/L
--- NOTE | 2023-10-17 15:48 | PTCARENOTE ---
Transferred to [id number]- left voice mail for Gloria nguyen.
--- NOTE | 2023-10-17 16:00 | CM ---
Patient with Hx HCC with Dx TME, hyponatremia, bacteremia, recurrent ascites s/p paracentesis. Room air. Receiving IV ceftriaxone. PT & OT recommend HH.
Per GI notes; patient accepted by Dr Mcpherson, for transfer to [facility] for possible TIPS procedure.
Per Dr Byers patient accepted by [facility] and he will be speaking with patient/.
Script received from Dr Barrios, for IV ceftriaxone, end date 11/23/23. Message sent to Dr Barrios; will hold off on setting up IV infusion due to possible acute to acute transfer to [facility].
Spoke with patient's Gloria; she is hoping to speak with Dr Byers today about transfer to [facility] and says she is unsure if her will agree to this plan if he is still a little confused - she is aware Dr Byers will be reaching out to her.
Informed her that [facility] had accepted and gave her [facility] Office phone #, in case patient is transferred, and informed her that if her is transferred that the [facility] will help her with final d/c plans.
Plan possible transfer to [facility].
[2023-10-17] MEDS: ROXICODONE 5 MG PO ×2 (17:58→23:22)
--- NOTE | 2023-10-17 19:18 | VATNOTE ---
right picc pulled back 3cm for SVC location per radiologist report post picc insertion. Dsg had been entirely bloody.
[2023-10-17] MEDS: STERILE WATER FOR INJECTION 20 ML IV (19:51)
[2023-10-17] MEDS: ROCEPHIN 2000 MG IV (19:51)
[2023-10-18] VITALS (7 sets, daily range): BP systolic 113–124; BP diastolic 74–85; BMI 23.9
[2023-10-18] MEDS: COMPAZINE 5 MG IV (00:06)
--- NOTE | 2023-10-18 01:31 | VATNOTE ---
10/18/23 0050
Paged by PCN to check PICC site. Patient had blood under dressing. Dressing changed with no active bleeding noted after cleaning of site. New dressing applied and will recheck. PCN aware.
--- NOTE | 2023-10-18 02:17 | VATNOTE ---
10/18/23 021
Patients dressing checked and C/D/I. PNC aware.
[2023-10-18 06:26] LABS: Hemoglobin 13.9 g/dL (13.0-18.0); Mean Corp Hgb Conc. 35.6 g/dL (33.0-37.0); Mean Corpuscular Hgb 31.8 pg (27.0-31.0); Mean Corpuscular Volume 89.2 fL (80.0-94.0); Mean Platelet Volume 10.3 fL (7.4-10.4); Platelet Count 149 10^3/uL (130-400); Red Blood Cell Count 4.37 10^6/uL (4.70-6.10); White Blood Cell Count 16.5 10^3/uL (4.8-10.8)
[2023-10-18 06:40] LABS: ALT (SGPT) 59 U/L (0-50); AST (SGOT) 94 U/L (17-59); Albumin 2.4 g/dl (3.5-5.0); Alkaline Phosphatase 111 U/L (38-126); Blood Urea Nitrogen 35 mg/dl (9-20); Calcium 9.3 mg/dl (8.4-10.2); Carbon Dioxide 23 mmol/L (22-30); Chloride 90 mmol/L (98-107); Estimated Creatinine Clearance 49 ml/min; Glucose 110 mg/dl (70-99); Magnesium 2.4 mg/dl (1.6-2.3); Phosphorus 5.9 mg/dl (2.5-4.5); Potassium 5.2 mmol/L (3.5-5.1); Sodium 125 mmol/L (135-145); Total Bilirubin 6.5 mg/dl (0.2-1.3); Total Protein 6.2 g/dl (6.3-8.2); eGFR 47.52
--- NOTE | 2023-10-18 07:08 | W.PN.HOSP.TC ---
Today's Communication/Plan
-
transfer to [facility] when bed available, possible benefit TIPS, Dr Mcpherson accepting
cont pain control
bowel regimen
abx as per ID
samsca/3% as per nephro
Albumin infusion
Assessment / Plan
Assessment / Plan
Physical exam
General: No acute distress appears comfortable at this time albeit fatigued
Cardio: S1-S2 appreciated
Pulm: Clear to auscultation
Abdomen: distended mild tenderness bowel sounds present Liver palpable
Ext: right PICC in place
Neuro: Lethargic but arousable oriented x3
MRI of the liver 10/12/2023-cirrhosis. Dominant heterogeneous region sparing the medial segment with prior opioid embolization diminished in size. Stable treated lesion in the posterior right lobe. 2 lesions in the left lobe increased in size.
Large amount of ascites. Stable prominence of main portal vein, intrahepatic portal vein. No thrombus. Small paraesophageal varices. Slightly enlarged spleen. Stable cholelithiasis. 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
aneurysm. Ascending colon portal colopathy
No cortical bony destructive process in the mandible on x-ray
Echo 10/12/2023 normal LV size and function. Mild LVH. Ejection fraction 60 to 65%. Thickened aortic valve with restricted leaflet motion 4. Moderate to severe AAS. Mild TR. Pulmonary pressure 30 to 35 mmHg.
#TME-Increased confusion likely secondary to symptomatic hyponatremia
Also possible that he has hepatic encephalopathy-mild
NA 124 today
Mentation slowly improving
-Nephro eval appreciated
- 3% NA infusion samsca as per nephro
-Fluid restriction
-Osmolality studies consistent with SIADH
-Patient stopped Lasix 3 weeks ago and spironolactone
-cont Lasix
-CT of the head without any acute changes
SILAS Cr elevation 0.9 to 1.6 following paracentesis Tuesday
Possible beginning Hepatorenal syndrome
-albumin infusion started 25% 50 mL Q8H x3
-BP otherwise stable
# Gram-positive bacteremia Strep mitis
-Source unclear
-Blood cultures x 3 sets positive for Strep mitis ampicillin and azithromycin resistant
-IV Rocephin continued, empiric vancomycin discontinued
-Repeat blood cultures neg so far
-HESHMA as per ID, patient stable to receive HESHAM as per GI
-Cardiology however recommends against procedure at this time given elevated risk, patient refusing HESHAM at this time in lieu of cardio recommendations
-Patient to continue with empiric treatment for IE w daily ceftriaxone through 11/23/23 picc placed 10/17
# Hereditary hemochromatosis with hepatocellular cancer with history of Y90 radioembolization at [place] Apr 2023
Patient did not want to get liver transplant done and was stable up until last year
Follows with Dr. Mckenna, oncology eval appreciated
MRI of the liver as above
Last phlebotomy has been in June 2023
# Recurrent ascites
Decompensated cirrhosis
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
Bleeding esophageal varices history with history of banding
He was seeing Hepatology, Dr. Alcocer, but states that he has recently switched care to Dr. Clark at [facility].
Gets paracentesis on Fridays
Last paracentesis 10/12/23-5.7 L of fluid removed repeated 10/17 therapeutic paracentesis 3L removed
Fluid studies not consistent with SBP
# History of heavy alcohol use alcohol use 4 days a week in the past completely stopped 9 years ago
# Cholelithiasis
# Thrombocytopenia
# Coagulopathy secondary to liver disease
# Met acidosis- PO Bicarb
# History of moderate aortic stenosis
# Hypoalbuminemia
# DVT prophylaxis-SCDs
# Full Code
Dr Stovall had a very long conversation with the patient's she asked if patient could get better or if this is going to be a terminal illness.
Updated regarding the plan for HESHAM and also explained why his oxycodone was cut in half.(Which is back to his usual dose now.)
She is frustrated by the fact that patient has not been the same since this Y90 radiation. They switched from [place] to [facility]. Discussed about treating his infection now and getting evaluated at [facility] in regards to his liver masses and
cirrhosis to see what the next step would be in terms of his treatment.
10/17 Following discussion with GI and patient's outpatient Tube Washer Dr Clark, requested transfer to [facility] for possible benefit TIPS given recurrent refractory ascites. Case was discussed with Dr Mcpherson who accepted patient for
transfer. Patient, in agreement with , consented for transfer.
Patient medically stable for downgrade telemetry 10/17
Discussed with patient and his
I spent a total of 50 minutes with the patient or on the floor. More than 50% of this time involved counseling and coordination of care.
Anticipated Discharge: 24 - 48 hours
Subjective/Interval History
-
Date of Service: October 18, 2023
Reports overall feeling well, improved from yesterday, constipation resolving. Pain well controlled at this time.
Objective Data
-
Labs:
Laboratory Results
10/18/23
05:20
WBC 16.5 H
Hgb 13.9
Hct 39.0
Plt Count 149
Sodium 125 L
Potassium 5.2 H
Chloride 90 L
Carbon Dioxide 23
BUN 35 H
Creatinine 1.6 H
Glucose 110 H
Calcium 9.3
Total Bilirubin 6.5 H
AST 94 H
ALT 59 H
Alkaline Phosphatase 111
Vital Signs:
Vital Signs
Temp Pulse Resp BP Pulse Ox
98.0 F 114 18 124/84 100
10/18/23 03:32 10/18/23 03:32 10/18/23 03:32 10/18/23 03:32 10/18/23 03:32
I&O
10/17/23 10/18/23 10/19/23
06:59 06:59 06:59
Intake Total 480 / 480 480 / 480
Output Total 300 / 300 300 / 300
Balance 180 / 180 180 / 180
[2023-10-18] MEDS: XIFAXAN 550 MG PO ×2 (08:43→19:32)
[2023-10-18] MEDS: MIRALAX 17 GRAMS PO (08:43)
[2023-10-18] MEDS: SENOKOT 17.1999999999999993 MG PO (08:43)
[2023-10-18] MEDS: COLACE 100 MG PO (08:43)
[2023-10-18] MEDS: PROTONIX 40 MG PO (08:43)
[2023-10-18] MEDS: DUPHALAC/CHRONULAC 20 GRAMS PO ×2 (08:43→19:32)
[2023-10-18] MEDS: LASIX 40 MG PO (08:43)
[2023-10-18] MEDS: SODIUM BICARBONATE 1300 MG PO ×2 (08:43→19:32)
[2023-10-18] MEDS: FLEXBUMIN 50 IV ×2 (09:05→15:46)
--- NOTE | 2023-10-18 09:58 | W.PN.ONC ---
Addendum entered and electronically signed by Patricia Osborne MD 10/18/23 16:18:
Agree w/ A&P as below
For transfer to [facility]
f/u with Dr. Mckenna 10/31/23
Will sign off, please call [facility] questions.
Original Note:
Today's Communication / Plan
-
CBC with diff daily
2/ Hgb 13.9, PLT 149
Transfuse as needed to maintain Hgb >7, PLT >20
Transfer to [facility] when bed available
Administer anti-emetics prior to transfer via EMS for nausea - patient agreeable
Supportive care
We will continue to follow.
Impression
Impression
Symptomatic recurrent ascites s/p therapeutic paracentesis
Advanced cirrhosis secondary to ETOH & hemochromatosis (dx 2014)
Hereditary hemochromatosis (baseline ferritin >1300)
Thrombocytopenia (resolving)
Hx HCC
Leukocytosis
Hyponatremia
Hyperkalemia
Hyperphosphatemia
Weakness
Subjective/Objective
Subjective/Objective
patient states he is feeling a bit better today. he states he is nervous to transfer to [facility] if he is feeling nauseas/sick.
Vital Signs:
Vital Signs
Temp Pulse Resp BP Pulse Ox
97.9 F 113 18 119/74 97
10/18/23 07:30 10/18/23 07:30 10/18/23 07:30 10/18/23 07:30 10/18/23 08:25
physical exam:
aaox3, less drowsy, pallor
HRR, lungs diminished/room air
abdomen distended/ascites
+2 edema b/l legs, scattered ecchymosis/discoloration
Lab Results:
Laboratory Data
WBC 16.5 10^3/uL (4.8-10.8) H 10/18/23 05:20
Hgb 13.9 g/dL (13.0-18.0) 10/18/23 05:20
Plt Count 149 10^3/uL (130-400) 10/18/23 05:20
PT 27.5 Sec (11.4-14.6) H 10/16/23 05:26
INR 2.57 10/16/23 05:26
eGFR 47.52 10/18/23 05:20
2/5 [facility]: 3000 cc of serosanguineous ascitic fluid was evacuated. Samples sent for analysis as requested.
--- NOTE | 2023-10-18 11:39 | W.PN.ID1 ---
Date of Service
Date of Service: October 18, 2023
Today's Communication
continue ceftriaxone
Assessment / Plan
Strep mitis/oralis bacteremia
Probable Endocarditis
SILAS - new
Leukocytosis persists
Decompensated Cirrhosis (EtOH and hemochromatosis)
Cholethiasis
- repeat blood cultures 10/12 and 10/13 both finalized neg
- random vanc level this afternoon given silas well below therapeutic range, note lasix and paracentesis yesterday
- plan to treat with 6 weeks of ceftriaxone 2gIV q24 through 11/23/23
- Home infusion sheet submitted to case assistant, however transfer is planned for possible TIPS for refractory ascites
Chief Complaint
-: Bacteremia
Subjective / Review of Systems
afebrile
bp stable
small increase in leukocytosis
SILAS today - cr 1.6
vanc tr 2.3 was 19.8 - last dosed 10/14 - lasix and paracentesis done yesterday
2/ body fluid no growth
Vital Signs / Physical Exam
Vital Signs
Vital Signs
Temp Pulse Resp BP Pulse Ox
97.9 F 113 18 119/74 97
10/18/23 07:30 10/18/23 07:30 10/18/23 07:30 10/18/23 07:30 10/18/23 08:25
Physical Exam
Constitutional: No Acute Distress
Cardiovascular: Regular Rate and S1/S2; Negative Murmur or Rub
Pulmonary: Clear and Symmetric; Negative Wheezes or Rales
Gastrointestinal: Soft, Non Tender, Distended (moderate) and Normal Bowel Sounds
Skin: Warm and Dry; Negative Rash or Jaundice
Objective Data
Lab Data
Lab Results
10/18/23 05:20
10/18/23 05:20
PT 27.5 Sec (11.4-14.6) H 10/16/23 05:26
INR 2.57 10/16/23 05:26
Estimated Creat Clear 49 ml/min 10/18/23 05:20
Total Bilirubin 6.5 mg/dl (0.2-1.3) H 10/18/23 05:20
AST 94 U/L (17-59) H 10/18/23 05:20
ALT 59 U/L (0-50) H 10/18/23 05:20
Alkaline Phosphatase 111 U/L (38-126) 10/18/23 05:20
Most recent labs reviewed.
Micro Results:
10/17/23 11:44 Body Fluid Culture - Preliminary
Peritoneal Fluid No Growth After 18-24 Hours
Gram Stain - Preliminary
10/13/23 05:06 Blood Culture - Final
Blood/Venous No Growth - Final Report
10/12/23 09:55 Blood Culture - Final
Blood/Venous No Growth - Final Report
10/11/23 20:25 Blood Culture - Final
Blood/Venous Strep mitis/oralis
Gram Stain - Final
10/11/23 19:10 Blood Culture - Final
Blood/Venous Strep mitis/oralis
Gram Stain - Final
10/11/23 19:09 Blood Culture - Final
Blood/Venous Strep mitis/oralis
Gram Stain - Final
10/12/23 15:00 Body Fluid Culture - Final
Peritoneal Fluid NO GROWTH-FINAL REPORT
Gram Stain - Final
[2023-10-18 12:48] LABS: Vancomycin Random 6.8 ug/ml
--- NOTE | 2023-10-18 13:29 | CM ---
Patient seen asleep bedside. Per nurse, received call from [facility] earlier, no bed available at this time. CM will continue to follow for discharge planning needs.
Plan; awaiting bed at [facility].
--- NOTE | 2023-10-18 15:47 | W.PN.NEPH.PH ---
Today's Communication / Plan
-
Hold Lasix
3% saline provided
Assessment/Plan
-
IMP:
TME
symptomatic hyponatremia-acute on chronic
hepatic encephalopathy-mild
Leukocytosis-bacteremia gram-positive cocci in chains
non gap met acidosis
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
Recurrent ascites-weekly paracentesis, last 10/07 4.5lit
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 Clark at [facility].
Bleeding esophageal varices history with history of banding
History of heavy alcohol use alcohol use� completely stopped 9 years ago
Cholelithiasis
History of moderate aortic stenosis
Plan:
-hyponatremia persists on lasix, FR. sodium bicarbonate, and 3%
-samsca provided yesterday with minimal effect
-will provide 3% again today for 250cc
-s/p paracentesis for 3Liters
-continue bicarb
-hold lasix as creatinine up to 1.6
-follow BMP
-
-
Date of Service: October 18, 2023
CC / HPI / ROS
-
Chief Complaint:
hyponatremia
History of Present Illness:
sodium down to 125 despite Samsca given on 10/17/2023
acidosis better
BP stable
no fever
Status post paracentesis for 3 L on 10/17/2023
Review of Systems:
no cp or sob
weights down
uop not accurately recorded
Labs
-
Labs:
WBC 16.5 10^3/uL (4.8-10.8) H 10/18/23 05:20
RBC 4.37 10^6/uL (4.70-6.10) L 02/06/24 05:20
Hgb 13.9 g/dL (13.0-18.0) 10/18/23 05:20
Hct 39.0 % (39.0-52.0) 10/18/23 05:20
Plt Count 149 10^3/uL (130-400) 10/18/23 05:20
Sodium 125 mmol/L (135-145) L 10/18/23 05:20
Potassium 5.2 mmol/L (3.5-5.1) H 10/18/23 05:20
Chloride 90 mmol/L (98-107) L 10/18/23 05:20
Carbon Dioxide 23 mmol/L (22-30) 10/18/23 05:20
BUN 35 mg/dl (9-20) H 10/18/23 05:20
Creatinine 1.6 mg/dL (0.7-1.3) H 10/18/23 05:20
eGFR 47.52 10/18/23 05:20
Glucose 110 mg/dl (70-99) H 10/18/23 05:20
Calcium 9.3 mg/dl (8.4-10.2) 10/18/23 05:20
Phosphorus 5.9 mg/dl (2.5-4.5) H 10/18/23 05:20
Albumin 2.4 g/dl (3.5-5.0) L 10/18/23 05:20
Physical Exam
-
Vital Signs:
Vital Signs
Temp Pulse Resp BP Pulse Ox
97.8 F 118 18 115/79 95
10/18/23 11:30 10/18/23 11:30 10/18/23 11:30 10/18/23 11:30 10/18/23 11:30
Cardiovascular:: Regular rate and rhythm
Respiratory:: Bilateral: Coarse
Lung Excursion:: Normal
Abdomen:: Distended
Bowel Sounds:: Decreased
Extremity Edema:: +1: Bilateral:
Ochoa Catheter: No
[2023-10-18] MEDS: SODIUM CHLORIDE 3% 250 IV (16:40)
[2023-10-18] MEDS: ROCEPHIN 2000 MG IV (19:32)
[2023-10-18] MEDS: STERILE WATER FOR INJECTION 20 ML IV (19:33)
[2023-10-18] MEDS: ROXICODONE 5 MG PO (19:42)
[2023-10-18] MEDS: ZOFRAN 4 MG IV (19:48)
[2023-10-19] VITALS (39 sets, daily range): BP systolic 42–116; BP diastolic 12–80; BMI 23.8
[2023-10-19] MEDS: FLEXBUMIN 50 IV ×2 (01:00→11:01)
[2023-10-19] MEDS: COMPAZINE 5 MG IV (01:11)
[2023-10-19] MEDS: ROXICODONE 5 MG PO (02:30)
[2023-10-19] MEDS: DILAUDID 0.25 MG IV (03:31)
[2023-10-19 04:26] LABS: Hematocrit 35.1 % (39.0-52.0); Hemoglobin 12.8 g/dL (13.0-18.0); Mean Corp Hgb Conc. 36.5 g/dL (33.0-37.0); Mean Corpuscular Hgb 32.7 pg (27.0-31.0); Mean Corpuscular Volume 89.5 fL (80.0-94.0); Mean Platelet Volume 10.7 fL (7.4-10.4); Platelet Count 92 10^3/uL (130-400); Red Blood Cell Count 3.92 10^6/uL (4.70-6.10); White Blood Cell Count 17.6 10^3/uL (4.8-10.8)
[2023-10-19 05:01] LABS: ALT (SGPT) 61 U/L (0-50); AST (SGOT) 112 U/L (17-59); Albumin 2.7 g/dl (3.5-5.0); Alkaline Phosphatase 99 U/L (38-126); Blood Urea Nitrogen 43 mg/dl (9-20); Calcium 9.5 mg/dl (8.4-10.2); Carbon Dioxide 20 mmol/L (22-30); Chloride 91 mmol/L (98-107); Estimated Creatinine Clearance 44 ml/min; Glucose 108 mg/dl (70-99); Magnesium 2.5 mg/dl (1.6-2.3); Phosphorus 5.3 mg/dl (2.5-4.5); Potassium 5.1 mmol/L (3.5-5.1); Sodium 128 mmol/L (135-145); Total Bilirubin 7.4 mg/dl (0.2-1.3); eGFR 41.26
[2023-10-19] MEDS: DILAUDID 0.5 MG IV (05:30)
--- NOTE | 2023-10-19 07:27 | W.PN.HOSP.TC ---
Today's Communication/Plan
-
transfer to ICU
albumin midodrine
prn phenylephrine
[facility] Transplant Line updated, transfer on hold, awaiting to discuss potential ICU to ICU transfer
GI re-eval
Agent Eval
Assessment / Plan
Assessment / Plan
Physical exam
General: No acute distress appears comfortable at this time albeit fatigued
Cardio: S1-S2 appreciated
Pulm: Clear to auscultation
Abdomen: soft distended tender bowel sounds present Liver palpable
Ext: right PICC in place
Neuro: Lethargic but arousable oriented x3
MRI of the liver 10/12/2023-cirrhosis. Dominant heterogeneous region sparing the medial segment with prior opioid embolization diminished in size. Stable treated lesion in the posterior right lobe. 2 lesions in the left lobe increased in size.
Large amount of ascites. Stable prominence of main portal vein, intrahepatic portal vein. No thrombus. Small paraesophageal varices. Slightly enlarged spleen. Stable cholelithiasis. 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
aneurysm. Ascending colon portal colopathy
No cortical bony destructive process in the mandible on x-ray
Echo 10/12/2023 normal LV size and function. Mild LVH. Ejection fraction 60 to 65%. Thickened aortic valve with restricted leaflet motion 4. Moderate to severe AAS. Mild TR. Pulmonary pressure 30 to 35 mmHg.
#TME-Increased confusion likely secondary to symptomatic hyponatremia
Also possible that he has hepatic encephalopathy-mild
NA 124 today
Mentation slowly improving
-Nephro eval appreciated
- 3% NA infusion samsca as per nephro
-Fluid restriction
-Osmolality studies consistent with SIADH
-Patient stopped Lasix 3 weeks ago and spironolactone
-cont Lasix later placed on hold d/t silas as below
-CT of the head without any acute changes
SILAS Cr elevation 0.9 to 1.6 following paracentesis Tuesday
Possible beginning Hepatorenal syndrome
-receoved albumin infusion 25% 50 mL Q8H x3 10/18/23
-Patient however decompensating SBP 60s 70s 10/19/23 triggering Rapid Response, patient lethargic but arousable conversant oriented x3 (similar to how he has been throughout hospital course)
-patient was evaluated earlier in the day before rapid response for repeat paracentesis however not enough fluid for safe tape was noted. Patient also notably constipated for past 5 days despite bowel regimen.
-albumin midodrine ordered, patient transferred to ICU, phenylephrine pressor support prn ordered
-Agent eval requested
-GI re-eval requested
- notified of above
-[facility] Transplant Line updated with regards to patient's clinical progress currently awaiting to discuss acceptance for ICU to ICU transfer
# Gram-positive bacteremia Strep mitis
-Source unclear
-Blood cultures x 3 sets positive for Strep mitis ampicillin and azithromycin resistant
-IV Rocephin continued, empiric vancomycin discontinued
-Repeat blood cultures neg so far
-HESHAM as per ID, patient stable to receive HESHAM as per GI
-Cardiology however recommends against procedure at this time given elevated risk, patient refusing HESHAM at this time in lieu of cardio recommendations
-Patient to continue with empiric treatment for IE w daily ceftriaxone through 11/23/23 picc placed 10/17
# Hereditary hemochromatosis with hepatocellular cancer with history of Y90 radioembolization at [facility] Apr 2023
Patient did not want to get liver transplant done and was stable up until last year
Follows with Dr. Mckenna, oncology eval appreciated
MRI of the liver as above
Last phlebotomy has been in June 2023
# Recurrent ascites
Decompensated cirrhosis
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
Bleeding esophageal varices history with history of banding
He was seeing Hepatology, Dr. Alcocer, but states that he has recently switched care to Dr. Clark at [facility].
Gets paracentesis on Fridays
Last paracentesis 10/12/23-5.7 L of fluid removed repeated 10/17 therapeutic paracentesis 3L removed
Fluid studies not consistent with SBP
# History of heavy alcohol use alcohol use 4 days a week in the past completely stopped 9 years ago
# Cholelithiasis
# Thrombocytopenia
# Coagulopathy secondary to liver disease
# Met acidosis- PO Bicarb
# History of moderate aortic stenosis
# Hypoalbuminemia
# DVT prophylaxis-SCDs
# Full Code
Dr Stovall had a very long conversation with the patient's she asked if patient could get better or if this is going to be a terminal illness.
Updated regarding the plan for HESHAM and also explained why his oxycodone was cut in half.(Which is back to his usual dose now.)
She is frustrated by the fact that patient has not been the same since this Y90 radiation. They switched from [facility] to [facility]. Discussed about treating his infection now and getting evaluated at [facility] in regards to his liver masses and
cirrhosis to see what the next step would be in terms of his treatment.
10/17 Following discussion with GI and patient's outpatient [employer] Dr Clark, requested transfer to [facility] for possible benefit TIPS given recurrent refractory ascites. Case was discussed with Dr Mcpherson who accepted patient for
transfer. Patient, in agreement with , consented for transfer. 10/19 patient decompensating hypotensive concern for hepatorenal syndrome transferred to ICU as noted above. [facility] Transplant Line updated regarding clinical progression and now
awaiting to discuss potential ICU to ICU transfer as opposed to med/surg as previously planned.
Patient medically stable for downgrade telemetry 10/17 unfortunately decompensating 10/19 upgraded to ICU
Discussed with patient and his
Total Critical Care Time__60___ minutes. I was immediately available to the patient and staff. I personally examined, reviewed labs, diagnostic images/reports, interpretations, treatment plans, discussed patient care with other providers,
patient, and his , entered orders as appropriate and documented the medical record.
Anticipated Discharge: > 48 hours
Subjective/Interval History
-
Date of Service: October 19, 2023
Rapid response this morning with low pressures systolic 70s 80s. patient remains lethargic but arousable oriented x3 conversant as he has been in the past.
Objective Data
-
Labs:
Laboratory Results
10/19/23 10/19/23
04:17 04:19
WBC 17.6 H
Hgb 12.8 L
Hct 35.1 L
Plt Count 92 L D
Sodium 128 L
Potassium 5.1
Chloride 91 L
Carbon Dioxide 20 L
BUN 43 H
Creatinine 1.8 H
Glucose 108 H
Calcium 9.5
Total Bilirubin 7.4 H
AST 112 H
ALT 61 H
Alkaline Phosphatase 99
Vital Signs:
Vital Signs
Temp Pulse Resp BP Pulse Ox
97.8 F 115 18 116/80 95
10/19/23 03:04 10/19/23 03:04 10/19/23 03:04 10/19/23 03:04 10/19/23 03:04
I&O
10/18/23 10/19/23 10/20/23
06:59 06:59 06:59
Intake Total 480 / 480 730 / 730
Output Total 300 / 300
Balance 180 / 180 730 / 730
--- NOTE | 2023-10-19 10:00 | PTCARENOTE ---
10/19- Patient seen in chair with pale yellow skin; extremities cool to touch; flat withdrawn affect, slow responses, slow slurred speech. Patient is responsive to touch. TA=843; RR=12; T=95.8 (axillary, unable to get oral temp using multiple
thermometers); Automatic BP=71/50; Manual BP=65/40. Called Rapid Response.
When placing patient back in bed, he intermittently lost responsiveness but had pulse. He became responsive within 15seconds. Accucheck=87; 12lead EKG shows Sinus Tachycardia with PACs and 1st degree HB. Patient to be transferred to ICU.
[2023-10-19 10:23] LABS: Glucose - Point of Care 87 mg/dl (70-99)
[2023-10-19 10:32] LABS: Hematocrit 36.1 % (39.0-52.0); Mean Corpuscular Volume 91.6 fL (80.0-94.0); Mean Platelet Volume 10.9 fL (7.4-10.4); Platelet Count 86 10^3/uL (130-400); Red Blood Cell Count 3.94 10^6/uL (4.70-6.10); Red Cell Dist. Width 16.2 % (11.5-14.5); White Blood Cell Count 17.2 10^3/uL (4.8-10.8)
[2023-10-19] MEDS: ProAmatine 5 MG PO (10:33)
[2023-10-19] MEDS: DUPHALAC/CHRONULAC PO (10:36)
[2023-10-19] MEDS: COLACE PO (10:36)
[2023-10-19] MEDS: MIRALAX PO (10:37)
[2023-10-19] MEDS: PROTONIX PO (10:37)
[2023-10-19] MEDS: SODIUM BICARBONATE PO (10:37)
[2023-10-19] MEDS: XIFAXAN PO (10:37)
[2023-10-19] MEDS: SENOKOT PO (10:37)
--- NOTE | 2023-10-19 10:45 | PTCARENOTE ---
Rec'd pt from rapid response. RR was called for hypotension....reviewed findings w/ . Pt transferred to ICU for albumin and pressors. Seen by (GI MD)....albumin infusing...STAT CT abdomen ordered. Will provide sodium bicarb and
initiate deshawn-synephrine gtt to maintain BP. Pt able to talk...knows name and place. C/O abdominal pain...unable to provide pain meds w/ unstable low BP. Repositions self in bed....rolling side to side while moaning. S1 S2 reg w/ + murmur
noted....NSR/ST/BBC on monitor. Weak PP. +2-3 pitting LLE. Lungs clear...on R/A...sats 98%. Abdomen obese...soft....ultrasounded this am -> not enough fluid to tap. Voids per previous RN...will bladder scan and monitor. Skin pale and
sallow...scattered skin tears on bilateral forearms. Skin tears covered w/ optifoams. 22P LH capped. (R) DL PICC w/ deshawn gtt infusing. VS documented q5min....will take to CT once BP stabilized.
--- NOTE | 2023-10-19 10:52 | CM ---
Chart reviewed, patient to transfer to ICU.
Plan; awaiting bed at [facility].
[2023-10-19 10:55] LABS: ALT (SGPT) 92 U/L (0-50); AST (SGOT) 141 U/L (17-59); Albumin 2.7 g/dl (3.5-5.0); Alkaline Phosphatase 97 U/L (38-126); Blood Urea Nitrogen 41 mg/dl (9-20); Calcium 9.3 mg/dl (8.4-10.2); Carbon Dioxide 14 mmol/L (22-30); Chloride 94 mmol/L (98-107); Estimated Creatinine Clearance 34 ml/min; Glucose 88 mg/dl (70-99); Lactic Acid 10.4 mmol/L (0.7-2.0); Potassium 5.3 mmol/L (3.5-5.1); Sodium 126 mmol/L (135-145); Total Bilirubin 7.7 mg/dl (0.2-1.3); eGFR 30.74
--- NOTE | 2023-10-19 10:57 | CON.INTV ---
Consultation
Consultation Request
Date/Time Consultation Requested: 10/19/2023-10:45 AM
Date/Time Consultation Performed: 10/19/2023-10:45 AM
Requesting Provider: Hospitalist
Performing Provider: Dr. Tan
Reason for Consultation: Hypotension/critical care management
Medical History
-
Chief Complaint: Hypotension/mental status changes
History of Present Illness:
63-year-old male with a history of hereditary hemochromatosis with hepatocellular carcinoma who presented with metabolic encephalopathy secondary to hyponatremia, renal failure and bacteremia with recurrent ascites and now hypotensive unresponsive
to midodrine likely requiring pressors-electronic game developer consulted for hypotension/metabolic encephalopathy/critical care management 10/19/2023. Patient is lethargic, moaning and review of systems reliably could not be obtained. He is in no respiratory
distress. His blood pressure is marginal.
Past Medical History
Past Medical History: None (Hereditary hemochromatosis. Hepatocellular carcinoma with previous radiation at [facility]. Recurrent ascites/weekly paracenteses. Prior phlebotomy. Former alcohol abuse stopped 9 years ago-advanced end-stage liver disease
2014. Chronic pain. Liver ablation. Aortic stenosis-moderate to severe. Vase)
Social History
Tobacco: Non-smoker
Alcohol: Former (Quit 9 years ago)
Drug: None
Personal:
Living: With Family
Occupational Exposures: No known asbestos exposure
Environmental Exposures: No known tuberculosis exposure
Family History
Family History: Other (Mother-liver cancer and diabetes. Father shot down World War II.)
Allergies / Home Medications
Allergies
Allergy/AdvReac Type Severity Reaction Status Date / Time
No Known Allergies Allergy Verified 10/11/23 14:45
Home Medications
Medication Instructions Recorded Confirmed Last Taken Type
furosemide 20 mg tablet 20 mg PO DAILY Fluid 11/05/16 10/11/23 10/10/23 History
Retention/Swelling
spironolactone 50 mg tablet 50 mg PO DAILY Blood Pressure 01/09/0410/11/23 10/10/23 History
ondansetron 4 mg disintegrating 4 mg PO Q6H PRN nausea 09/29/23 10/11/23 10/10/23 History
tablet
oxycodone 5 mg tablet 5 mg PO Q4H PRN pain 09/29/23 10/11/23 10/10/23 History
sennosides 8.6 mg tablet (Senokot) 17.2 mg PO DAILY Constipation 09/29/23 10/11/23 10/10/23 History
docusate sodium 100 mg capsule 100 mg PO DAILY STOOL SOFTENER 09/30/23 10/11/23 10/10/23 History
Review of Systems
-
Unable to Obtain full review of systems at this time due to: Patient Non Verbal and Other (Per HPI)
Vitals / Labs / Diagnostic Testing
Vital Signs
Temp Pulse Resp BP Pulse Ox
95.8 F L 118 12 65/40 92
10/19/23 10:00 10/19/23 10:00 10/19/23 10:00 10/19/23 10:00 10/19/23 10:00
Lab Data
10/19/23 10:18
10/19/23 10:18
Microbiology
10/17/23 11:44 Peritoneal Fluid Body Fluid Culture - Preliminary
No Growth After 18-24 Hours
10/17/23 11:44 Peritoneal Fluid Gram Stain - Preliminary
10/13/23 05:06 Blood/Venous Blood Culture - Final
No Growth - Final Report
10/12/23 09:55 Blood/Venous Blood Culture - Final
No Growth - Final Report
10/11/23 20:25 Blood/Venous Blood Culture - Final
Strep mitis/oralis
10/11/23 20:25 Blood/Venous Gram Stain - Final
10/11/23 19:10 Blood/Venous Blood Culture - Final
Strep mitis/oralis
10/11/23 19:10 Blood/Venous Gram Stain - Final
10/11/23 19:09 Blood/Venous Blood Culture - Final
Strep mitis/oralis
10/11/23 19:09 Blood/Venous Gram Stain - Final
Diagnostic Testing:
Physical Exam
-
Exam:
Well-nourished and well-developed in no apparent distress
HEENT-atraumatic, normocephalic, anicteric
Neck-supple, no JVD, no bruit
Heart regular with 3/6 systolic murmur
Chest with rare basilar crackles and no wheezes
Abdomen soft distended bulging flanks, nontender, no rebound or guarding
Extremities-no cyanosis, clubbing, edema and good peripheral pulses
Integument-intact, no rashes, lesions or ecchymosis
Neurologically alert, not oriented moaning, moving all extremities
Assessment
-
63-year-old male with a history of hereditary hemochromatosis with hepatocellular carcinoma who presented with metabolic encephalopathy secondary to hyponatremia, renal failure and bacteremia with recurrent ascites and now hypotensive unresponsive
to midodrine likely requiring pressors-electronic game developer consulted for hypotension/metabolic encephalopathy/critical care management 10/19/2023.
Assessment
Hypotension
Bacteremia
Ascites requiring recurrent paracenteses
End-stage liver disease
Hyponatremia
Toxic metabolic encephalopathy
Leukocytosis
Metabolic acidosis
Lactic acidosis
SILAS
Hepatorenal syndrome suspected
Hyperkalemia
Chronic constipation
Conditions present prior to admission:
Hereditary hemochromatosis.
Hepatocellular carcinoma with previous radiation at [facility].
Recurrent ascites/weekly paracenteses.
Prior phlebotomy.
Former alcohol abuse stopped 9 years ago-advanced end-stage liver disease 2014.
Chronic pain.
Liver ablation.
Aortic stenosis-moderate to severe.
Vasectomy
Plan
Admit patient to medical intensive care unit for persistent hypotension despite fluid resuscitation requiring pressors
Supplement oxygen as needed
High flow oxygen if needed
BiPAP if necessary
Intubate and mechanically ventilate if necessary
Aspiration precautions
Nebulizers if needed
Cultures reviewed
Most recent blood cultures negative
Previous blood cultures positive for strep
Empiric antibiotics
Infectious disease following
Monitor leukocytosis
Fluid resuscitation with 30 mL/kg crystalloid-preferably lactated ringer-(less SILAS) with subsequent boluses as needed
Monitor lactate
Follow CVP if possible
Attempt noninvasive bedside tissue perfusion evaluation to see if fluid bolus responsive
Measure pulse pressure and stroke volume variation if patient on ventilator, passively breathing without arrhythmia and with temporary large tidal volume ventilation and if > 13% then likely fluid bolus responsive
If patient active then consider measuring bedside leg lift for 3 minutes and if cardiac output increases or if there is a rise of 2-4 on end-tidal CO2 then fluid bolus
If bedside ultrasound available then measure IVC diameter variation to evaluate for fluid bolus responsiveness
Begin pressors as needed for MAP goal of 65-Norepinephrine first, then Vasopressin and consider Angiotensin II if continues to be hypotensive
Consider methylene blue if available-specific inhibitor of induced nitric oxide synthase iNOS and its downstream enzyme soluble guanylate cyclase-noninferiority study shown to reduce time to vasopressor discontinuation, decreased ICU length of stay,
hospital stay but no change in mortality-published Critical Care 11/22/2022
If persistently hypotensive then consider checking random cortisol-hydrocortisone if random less than 3, if 3-15 then consider ACTH stimulation test
If persistently hyperthermic then correcting hyperthermia can decrease pressor requirements, increased chances of reversal of shock and decrease mortality
Nephrology following
Midodrine
Hepatorenal syndrome suspected
Replace electrolytes
Advanced lung disease noted
GI following
Spironolactone continues
Ceftriaxone and rifaximin continue in addition to lactulose and PPI-pantoprazole
Recurrent paracenteses needed
Paracenteses cultures 10/17/2023-no growth
For transfer for TIPS procedure
In the past patient declined liver transplantation
Former alcohol use leading to end-stage liver disease 2014-no drinking since
Significant constipation-MiraLAX continues as well as lactulose
Oncology following-correspondence reviewed
DVT prophylaxis
Early nutrition if possible
Early mobilization/bedside range of motion
Critical care statement: A total of 50 minutes of critical care time was provided for this patient today. This includes management of unstable vital signs, evaluation of the patient at bedside, reviewing the patient's pertinent medical records
including radiographs, microbiology, laboratory evaluations, and discussion with primary team, consultants, pharmacy, nutrition, physical therapy, case management, charge nurse, critical care nursing, and respiratory therapy.
Diagnostic data:
Chest x-ray 10/17/2023-NAD
Paracentesis 10/17/23-3000 mL serosanguineous fluid
Abdominal ultrasound 10/19/2023-small volume of ascites not sufficient for percutaneous drainage
Blood culture 10/11/2023 x 2--strep mitis/oralis
Paracentesis fluid 10/17/2023-no growth
Echocardiogram 10/12/2023-EF 60-65%, normal diastolic function, moderate to severe aortic stenosis-KIRK 0.9, PA systolic 30
Data Reviewed
-
EKG: Report reviewed by me
Radiology: Report reviewed by me
Ultrasound: Report reviewed by me
MRI: Report reviewed by me
Labs: Labs reviewed by me
Critical Care Time (in minutes): 50
[2023-10-19 11:02] LABS: Troponin I 0.183 ng/ml
[2023-10-19 11:15] LABS: PT 92.4 Sec (11.4-14.6)
--- NOTE | 2023-10-19 11:34 | W.PN.GI.CBS2 ---
Today's Communication / Plan
-
See assessment and plan for details.
Assessment / Plan
-
1. Abdominal pain: Severe, acute, with hypotension, acidosis, tympany and rebound exam worry for possible perforation. Given recent bacteremia and questionable endocarditis could have intestinal ischemia and septic emboli. At this point we will
check stat CT scan. Ultrasound today did not show enough ascites for paracentesis, recent paracentesis 2 days ago with 3 L, negative for SBP. Continue maximal supportive care per ICU, I discussed with personnel coordinator.
2. 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 He did have mild confusion with possible
hepatic encephalopathy admission, the likely more from bacteremia. He is n.p.o. for now given his abdominal exam. Per the chart [facility] was updated as to his status.
Subjective
Subjective
Date of Service: October 19, 2023
Called back to see patient urgently for reconsult after change in status. He started developing severe diffuse abdominal pain overnight, received narcotics, though pain persists. Went for repeat paracentesis though none of fluid to tap. He
recently had paracentesis 2 days ago with 3 L removed, negative for SBP as well as before. He has been admitted with persistently positive blood cultures with strep mitis, likely endocarditis, though no obvious vegetation was seen on transthoracic
echo. He was for transfer to [facility] for possible TIPS given refractory ascites, where he follows with hepatology. Currently he complains of severe abdominal pain. He does answer some questions appropriately.
Objective
Data Reviewed
Laboratory Data:
Laboratory Results
10/19/23 10:18
10/19/23 10:18
Laboratory Results
PT 27.5 Sec (11.4-14.6) H 10/16/23 05:26
INR 2.57 10/16/23 05:26
Phosphorus 5.3 mg/dl (2.5-4.5) H 10/19/23 04:19
Magnesium 2.5 mg/dl (1.6-2.3) H 10/19/23 04:19
Total Bilirubin 7.7 mg/dl (0.2-1.3) H 10/19/23 10:18
AST 141 U/L (17-59) H 10/19/23 10:18
ALT 92 U/L (0-50) H 10/19/23 10:18
Alkaline Phosphatase 97 U/L (38-126) 10/19/23 10:18
Vital Signs and I&O:
Vital Signs
Temp Pulse Resp BP Pulse Ox
95.8 F L 118 12 65/40 92
10/19/23 10:00 10/19/23 10:00 10/19/23 10:00 10/19/23 10:00 10/19/23 10:00
I&O
10/18/23 10/19/23 10/20/23
06:59 06:59 06:59
Intake Total 480 / 480 730 / 730
Output Total 300 / 300
Balance 180 / 180 730 / 730
Physical Exam
Physical Exam
General: NAD
Abdomen: High-pitched bowel sounds, markedly distended, with increased tympany, with diffuse tenderness and rebound
[2023-10-19] MEDS: NEO-SYNEPHRINE 250 IV (11:42)
[2023-10-19] MEDS: SODIUM BICARBONATE 100 MEQ IV (11:42)
[2023-10-19 11:56] LABS: INR > 8.0
[2023-10-19 11:57] LABS: APTT > 200 Sec (23.4-35.0)
--- NOTE | 2023-10-19 12:02 | W.PN.ID1 ---
Date of Service
Date of Service: October 19, 2023
Today's Communication
add metronidazole
await CT if perforation would consult colorectal surgery
Assessment / Plan
Shock - likely Septic
Acute abdomen
- repeat blood cultures x2
- agree with CT abdomen
- already on ceftriaxone and rifaxamin, add metrondiazole
- if bowel perforation then would consult CT surgery; INR would need to be addressed by IM service or GI
- follow clinically
Strep mitis/oralis bacteremia
Probable Endocarditis
SILAS - new
Leukocytosis persists
Decompensated Cirrhosis (EtOH and hemochromatosis)
Cholethiasis
- repeat blood cultures 10/12 and 10/13 both finalized neg
- random vanc level this afternoon given silas well below therapeutic range, note lasix and paracentesis yesterday
- plan to treat with 6 weeks of ceftriaxone 2gIV q24 through 11/23/23
- Home infusion sheet submitted to block and case maker, however transfer is planned for possible TIPS for refractory ascites
Chief Complaint
-: Bacteremia
Subjective / Review of Systems
had OPTICAL INSTRUMENT ASSEMBLER this am for hypotension and moved to the ICU
hypothermic and hypotensive on pressors, tachycardci
note INR >8
wbc 17
hyponatremia ongoing
lactic nicole pending
t bili further increased
concern for acute abdomen/possible perforation by gi
US today - too small of a volume for paracentesis
Vital Signs / Physical Exam
Vital Signs
Vital Signs
Temp Pulse Resp BP Pulse Ox
95.8 F L 118 12 65/40 92
10/19/23 10:00 10/19/23 10:00 10/19/23 10:00 10/19/23 10:00 10/19/23 10:00
Physical Exam
Constitutional: Acutely Ill and Chronically Ill
Cardiovascular: Regular Rate and S1/S2; Negative Murmur or Rub
Pulmonary: Clear and Symmetric; Negative Wheezes or Rales
Gastrointestinal: Soft, Tender (marked diffuse), Distended and Normal Bowel Sounds
Skin: Warm and Dry; Negative Rash or Jaundice
Neurological: Awake and Alert
Psychological: Negative Calm
Objective Data
Lab Data
Lab Results
10/19/23 10:18
10/19/23 10:18
PT 92.4 Sec (11.4-14.6) H 10/19/23 10:18
INR > 8.0 H* D 10/19/23 10:18
APTT > 200 Sec (23.4-35.0) H* 10/19/23 10:18
Estimated Creat Clear 34 ml/min 10/19/23 10:18
Lactic Acid 10.4 mmol/L (0.7-2.0) H* 10/19/23 10:18
Total Bilirubin 7.7 mg/dl (0.2-1.3) H 10/19/23 10:18
AST 141 U/L (17-59) H 10/19/23 10:18
ALT 92 U/L (0-50) H 10/19/23 10:18
Alkaline Phosphatase 97 U/L (38-126) 10/19/23 10:18
Most recent labs reviewed.
Micro Results:
10/17/23 11:44 Body Fluid Culture - Preliminary
Peritoneal Fluid No Growth After 48 Hours
Gram Stain - Preliminary
10/13/23 05:06 Blood Culture - Final
Blood/Venous No Growth - Final Report
10/12/23 09:55 Blood Culture - Final
Blood/Venous No Growth - Final Report
10/11/23 20:25 Blood Culture - Final
Blood/Venous Strep mitis/oralis
Gram Stain - Final
10/11/23 19:10 Blood Culture - Final
Blood/Venous Strep mitis/oralis
Gram Stain - Final
10/11/23 19:09 Blood Culture - Final
Blood/Venous Strep mitis/oralis
Gram Stain - Final
10/12/23 15:00 Body Fluid Culture - Final
Peritoneal Fluid NO GROWTH-FINAL REPORT
Gram Stain - Final
--- NOTE | 2023-10-19 12:27 | W.PN.NEPH.PH ---
Today's Communication / Plan
-
CT
Assessment/Plan
-
IMP:
TME
symptomatic hyponatremia-acute on chronic
hepatic encephalopathy-mild
Leukocytosis-bacteremia gram-positive cocci in chains
non gap met acidosis
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
Recurrent ascites-weekly paracentesis, last 10/07 4.5lit
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 Clark at [facility].
Bleeding esophageal varices history with history of banding
History of heavy alcohol use alcohol use� completely stopped 9 years ago
Cholelithiasis
History of moderate aortic stenosis
Plan:
-for CT scan
-keep MAP>65
-follow BMP/lactic
-prognosis is poor
-d/w . She understands that most of the outcomes possible he will not recover from
-he is not a dialysis candidate
-she would prefer comfort if his clinical status continues to worsen
-critical care time 31 minutes
-
-
Date of Service: October 19, 2023
CC / HPI / ROS
-
Chief Complaint:
hyponatremia
History of Present Illness:
sodium down to 126
EDUCATIONAL DIRECTOR this am for hypotension/acute abdominal pain
acidosis worse with lactic acidosis
hypotension on pressors, transferred to ICU
criticallly ill
SILAS/Cr up to 2.3
Review of Systems:
moaning
abdominal pain
Labs
-
Labs:
WBC 17.2 10^3/uL (4.8-10.8) H 10/19/23 10:18
RBC 3.94 10^6/uL (4.70-6.10) L 10/19/23 10:18
Hgb 13.0 g/dL (13.0-18.0) 10/19/23 10:18
Hct 36.1 % (39.0-52.0) L 10/19/23 10:18
Plt Count 86 10^3/uL (130-400) L 10/19/23 10:18
Sodium 126 mmol/L (135-145) L 10/19/23 10:18
Potassium 5.3 mmol/L (3.5-5.1) H 10/19/23 10:18
Chloride 94 mmol/L (98-107) L 10/19/23 10:18
Carbon Dioxide 14 mmol/L (22-30) L* 10/19/23 10:18
BUN 41 mg/dl (9-20) H 10/19/23 10:18
Creatinine 2.3 mg/dL (0.7-1.3) H 10/19/23 10:18
eGFR 30.74 10/19/23 10:18
Glucose 88 mg/dl (70-99) 10/19/23 10:18
Calcium 9.3 mg/dl (8.4-10.2) 10/19/23 10:18
Phosphorus 5.3 mg/dl (2.5-4.5) H 10/19/23 04:19
Albumin 2.7 g/dl (3.5-5.0) L 10/19/23 10:18
Physical Exam
-
Vital Signs:
Vital Signs
Temp Pulse Resp BP Pulse Ox
95.8 F L 108 26 78/30 98
10/19/23 10:00 10/19/23 12:00 10/19/23 12:00 10/19/23 12:00 10/19/23 12:00
Cardiovascular:: Regular rate and rhythm
Respiratory:: Bilateral: Coarse
Lung Excursion:: Normal
Abdomen:: Soft and Tender
Bowel Sounds:: Decreased
Extremity Edema:: +3: Bilateral:
[2023-10-19 12:38] LABS: B.E. -8.4 mmol/L; O2 Saturation % 98.1 % (94-98); PCO2 20 mmHg (35-48); PO2 104 mmHg (83-108); pH 7.44 (7.35-7.45)
[2023-10-19 12:39] LABS: HCO3 13.6 mmol/L (21-28)
--- NOTE | 2023-10-19 12:42 | W.PN.UPDATE ---
Addendum entered and electronically signed by Ann Byers MD 10/19/23 15:01:
CT results reviewed with GI ICU
nonsurgical candidate Terminal
Family, made aware of poor prognosis, requesting DNR/Comfort Care
Care Updated accordingly
[facility] updated and transfer canceled.
Original Note:
Update Note
Progress Note Update
[facility] updated with Regards to patient clinical change
Accepted for ICU to ICU transfer under Dr Edgar Portillo
[2023-10-19] MEDS: LEVOPHED 250 IV (13:23)
[2023-10-19] MEDS: FLAGYL 500 MG 100 IV (13:24)
[2023-10-19] MEDS: AQUAMEPHYTON 51 MG IV (13:26)
--- NOTE | 2023-10-19 13:30 | PTCARENOTE ---
Pt taken to CT per . Pt's family at bedside and fully updated on plan of care and poor prognosis. Currently on deshawn and levo gtts...see interventions. Will continue to monitor closely.
--- NOTE | 2023-10-19 14:30 | PTCARENOTE ---
After much discussion...family is agreement to make pt comfortable and change code status to DNR. Will continue deshawn and levo gtts until bag is empty per family. PRN morphine and ativan given...pt appears comfortable at present w/ family at
bedside. Will continue to monitor.
--- NOTE | 2023-10-19 14:42 | W.PN.UPDATE ---
Update Note
Progress Note Update
I personally reviewed the CT scan and discussed with radiology, diffuse pneumatosis including stomach, duodenum, small large intestine along with small areas of free air and air within the vasculature, consistent with diffuse ischemia/necrosis. I
discussed with the family at length, and all agreeable with hospice/comfort care. I discussed with critical care and internal medicine.
--- NOTE | 2023-10-19 14:46 | W.PN.UPDATE ---
Update Note
Progress Note Update
Reevaluated patient at the bedside as well as reviewed with and son as well as critical care nursing
CT abdomen results were reviewed with gastroenterology
Patient is a nonsurgical candidate and unfortunately terminal
The patient's family understands this
DNR status and essentially hospice is requested-we will respect their wishes
Comfort is a priority
Extraordinary means of ongoing life support including pressors will be weaned
Morphine drip, Ativan will be used as needed for comfort
Emotional support provided
Reviewed with critical care nursing
[2023-10-19] MEDS: MORPHINE SULFATE 1 MG IV ×2 (15:05→16:50)
[2023-10-19] MEDS: ATIVAN 1 MG IV (15:08)
--- NOTE | 2023-10-19 15:59 | CHAP ---
Prayer blanket given. Family does not wish further pastoral care attention at this time, but appreciated the blanket.
--- NOTE | 2023-10-19 18:00 | PTCARENOTE ---
Emotional support provided to family. Pt appears comfortable. Decreased HR and RR on monitor. Will continue to monitor closely.
--- NOTE | 2023-10-19 18:30 | PTCARENOTE ---
Pt at 1830...asystole on monitor. Reynaldo RODRIGUEZ made aware. Family at bedside...emotional support provided.
--- NOTE | 2023-10-19 18:51 | PTCARENOTE ---
GOL notified and paperwork completed.
--- NOTE | 2023-10-19 19:37 | W.PN.DEATH ---
Pronouncement of
-
Called to see patient to pronounce.
No spontaneous heart tones or respirations noted.
Patient not responsive to verbal stimuli.
Patient is pronounced .
Time of : 18:30
Date of : 10/19/23
Cause of : Ischemic bowel
Family Notified: Yes
--- NOTE | 2023-10-20 07:20 | W.DCSUMMARY ---
Discharge Summary
Discharge Data
Date of Admission: 10/11/23
Date of Discharge: 10/19/23
-
Pending Results: No
Hospital Course
63M hx Hemochromatosis Hepatocellular Carcinoma Esophageal varices status post banding Ascites p/w progressive confusion AMS over past few days with associated abd pain.� Previous radiation treatment, not on chemo at time of admission.� He has had
history of frequent paracentesis last on 10/07 2023 draining 4.4 L prior 5 L on 09/22/23.� On weekly paracentesis, he follows with Dr. Mckenna from [facility].� The patient reported he stopped his diuretics a few weeks ago due to abdominal pain.�
He has past medical history of hepatocellular carcinoma with previous radiation Y90 at [facility], weekly paracentesis, prior phlebotomy last was June due to hemochromatosis diagnosed 9 years ago, former alcohol abuse stopped 9 years ago, chronic
pain. MRI of the liver 10/12/2023 noted cirrhosis.� Dominant heterogeneous region sparing the medial segment with prior opioid embolization diminished in size.� Stable treated lesion in the posterior right lobe.� 2 lesions in the left lobe increased
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
artery aneurysm.� Ascending colon portal colopathy. Echo 10/12/2023 noted normal LV size and function.� Mild LVH.� Ejection fraction 60 to 65%.� Thickened aortic valve with restricted leaflet motion 4.� Moderate to severe .� Mild TR.� Pulmonary
pressure 30 to 35 mmHg. TME-Increased confusion likely secondary to symptomatic hyponatremia, hepatic encephalopathy, and sepsis. Gram-positive bacteremia Strep mitis, Source unclear, Blood cultures x 3 sets positive for Strep mitis, ampicillin
and azithromycin resistant. ID evaluated and Empiric IV Rocephin was continued, empiric vancomycin discontinued. Eventually blood cultures cleared. Patient was recommended for HESHAM however cardiology recommended against performing the procedure
due to elevated risk and given patient's overall improvement from infection standpoint. Picc was placed and patient was planned for empiric treatment IE w daily ceftiaxone through 11/23/23. Mentation slowly improved over the course of hospital
stay. Sodium improved very slowly requiring multiple doses prn 3% NA infusion Samsca as per nephro. 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 CT of the head without any acute changes. 10/17 Following discussion with GI
and patient's outpatient Die Fitter Dr Clark, requested transfer to [facility] for possible benefit TIPS given recurrent refractory ascites.� Case was discussed with Dr Mcpherson who accepted patient for transfer.� Patient, in agreement with
, consented for transfer. Transfer was later canceled as patient decompensated as follows. On lasix diuresis, this was placed on hold when patient developed SILAS Cr elevation 0.9 to 1.6 day following paracentesis 10/17. Possible beginning
Hepatorenal syndrome, patient received albumin infusion 25% 50 mL Q8H x3 10/18/23. Patient however later decompensated SBP 60s 70s 10/19/23 triggering Rapid Response, patient lethargic but arousable conversant oriented x3 (similar to how he has
been throughout hospital course). Patient was evaluated earlier in the day before rapid response for repeat paracentesis however not enough fluid for safe tap was noted.� Patient also notably constipated for past 5 days despite bowel regimen.
Albumin midodrine ordered, patient was transferred to ICU, phenylephrine pressor support prn ordered. GI and bad credit collector evaluated. Patient ultimately required two pressors phenylephrine and Levophed to maintain safe pressure levels for urgent CT
without contrast. CT would show dilatation of stomach, small bowel and large bowel with extensive gastric as well as areas of small bowel and large bowel pneumatosis, small volume free air and some bubbles of air seen in several mesenteric vessels.
Combination of findings consistent with diffuse ischemia/necrosis- non-operable terminal. Fashion Consultant Sales and GI would discuss results with family who would ultimately opt for DNR and comfort care. Patient later passed in the evening on comfort
measures, family at bedside.
Discharge Plan
-
Patient Disposition:
Date/Time
Date/Time: 10/19/23 18:30
Discharge Date and Time
Discharge Date/Time: 10/19/23 18:30
== END 2023-10-19 18:30 | disposition expired | DRG 871 ==
LOC: ICU 18:56
PROVIDERS: Emergency Medicine; Nurse Practitioner Adult Health; Nurse Practitioner Family; Physician Assistant; Radiology Diagnostic Radiology; Radiology Vascular & Interventional Radiology; Specialist; ADMITTING PHYSICIAN Hospitalist; ATTENDING PHYSICIAN Internal Medicine; CONSULT PHYSICIAN Internal Medicine Critical Care Medicine; CONSULT PHYSICIAN Internal Medicine Gastroenterology; CONSULT PHYSICIAN Student in an Organized Health Care Education/Training Program; EMERGENCY PHYSICIAN Emergency Medicine; FAMILY PHYSICIAN Internal Medicine Hematology & Oncology; OTHER PHYSICIAN Internal Medicine; OTHER PHYSICIAN Internal Medicine Cardiovascular Disease; OTHER PHYSICIAN Internal Medicine Hematology & Oncology
PROC: 0W9G3ZZ Drainage of Peritoneal Cavity, Percutaneous Approach (ICD-10-PCS; 2023-10-12)
DX: A41.89 Other specified sepsis (principal); G92.8 Other toxic encephalopathy; R65.21 Severe sepsis with septic shock; K55.069 Acute infarction of intestine, part and extent unspecified; E22.2 Syndrome of inappropriate secretion of antidiuretic hormone; K55.9 Vascular disorder of intestine, unspecified; K76.6 Portal hypertension; D68.9 Coagulation defect, unspecified; C22.0 Liver cell carcinoma; N17.9 Acute kidney failure, unspecified; E87.20 Acidosis, unspecified; Z85.05 Personal history of malignant neoplasm of liver; Z92.3 Personal history of irradiation; E83.110 Hereditary hemochromatosis; K70.31 Alcoholic cirrhosis of liver with ascites; K76.82 Hepatic encephalopathy; K59.09 Other constipation; I95.9 Hypotension, unspecified; E87.5 Hyperkalemia; D69.59 Other secondary thrombocytopenia; R60.0 Localized edema; Z51.5 Encounter for palliative care; Z66 Do not resuscitate; G89.29 Other chronic pain
CPT/HCPCS: 36600; 49083; 70355; 70450; 71045; 71046; 74176; 74183; 76705; 80048; 80053; 80202; 81003; 81015; 82042; 82140; 82150; 82248; 82533; 82728; 82805; 82962; 83540; 83550; 83605; 83615; 83735; 83930; 83935; 84100; 84157; 84295; 84300; 84443; 84484; 84550; 85025; 85027; 85610; 85730; 86850; 86900; 86901; 87015; 87040; 87070; 87149; 87186; 87205; 89051; 93005; 93306; 97110; 97163; 97166; 97530; 97535; 99285; A9581; P9047